=== PATIENT | male | born 1930 | race Caucasian/White ===

== ENCOUNTER 2016-10-04 13:52 | Inpatient (IN) | payer OTHER, MEDICAID ==
[~2016-10-04] VITALS: Ht 162.6 cm; Wt 70.6 kg
[~2016-10-04 13:52] MED LIST: AMIO200T46 PO; ASA PO; DILT120C79 PO; LOSA25TA47 PO; MULT1CAP20 PO
[2016-10-04] MEDS ORDERED: SODIUM CHLORIDE 0.9% 1L BAG IV* STA (14:18)
[2016-10-04] MEDS ORDERED: AMIODARONE 150MG/D5W BOLUS 100 ML IV ONE (14:30)
[2016-10-04] MEDS ORDERED: DABI150C PO (14:52)
[2016-10-04] MEDS ORDERED: OMEP40CA6 PO (14:52)
[2016-10-04] MEDS ORDERED: METO25TA7 PO (14:52)
--- NOTE | 2016-10-04 14:52 | ERA ---
ER Documentation Chief Complaint Date/Time DATE: 10/04/16 TIME: 14:50 Chief Complaint CONSTANT EPIGASTRIC PAIN STARTING YESTERDAY HPI 86-year-old male presenting with abdominal pain radiating up into his chest that started yesterday. The patient is a poor historian and is unable to give much detail about his pain. He is unable to describe the quality of his pain, however he states that it is a constant pain, radiating to his back, currently a 9 out of 10. He denies any associated shortness of breath, fever, chills. However his daughter states that he has been having chills. No associated dysuria or cough. ROS All systems reviewed and are negative except as per history of present illness. Medications Home Meds Reported Medications Vitamin B Complex (B Complete) 1 Each Tablet, 1 EACH PO DAILY, TAB 10/04/16 Ascorbic Acid* (Vitamin C*) 500 Mg Capsule.sa, 500 MG PO DAILY, CAP 10/04/16 Ferrous Sulfate* (Ferrous Sulfate*) 325 Mg Tabec, 325 MG PO DAILY, TAB 10/04/16 Dabigatran Etexilate Mesylate* (Pradaxa*) 150 Mg Capsule, 150 MG PO BID, CAP 10/04/16 Omeprazole* (Omeprazole*) 40 Mg Capsule.dr, 40 MG PO DAILY, #30 CAP 10/04/16 Metoprolol Succinate* (Toprol XL*) 25 Mg Tab.sr.24h, 25 MG PO DAILY, #30 TAB 10/04/16 Discontinued Reported Medications Multivitamins (Replace) 1 Cap Capsule, 1 CAP PO DAILY 01/22/12 [Asa] No Conflict Check, 81 MG PO DAILY 01/22/12 Diltiazem Hcl (Diltiazem Er) 120 Mg Capsule.sa, 120 MG PO DAILY 01/22/12 Losartan Potassium* (Cozaar*) 25 Mg Tablet, 25 MG PO DAILY 01/22/12 Amiodarone Hcl* (Cordarone*) 200 Mg Tab, 200 MG PO DAILY 01/22/12 Allergies Allergies: Coded Allergies: No Known Allergies (Verified Allergy, Unknown, 10/04/16) PMhx/Soc History of Surgery: Yes (Ocular surgery, pacemaker placement, laparoscopic cholecystectomy) Anesthesia Reaction: No Hx Neurological Disorder: No Hx Respiratory Disorders: No Hx Cardiac Disorders: Yes (Hypertension, unknown arrhythmia requiring pacemaker ) Hx Psychiatric Problems: No Hx Miscellaneous Medical Probl: No Hx Alcohol Use: No Hx Substance Use: No Hx Tobacco Use: Yes (20yrs, 1pack/week) FmHx Family History: No diabetes Physical Exam Vitals Vital Signs Date Time Temp Pulse Resp B/P Pulse Ox O2 Delivery O2 Flow Rate FiO2 10/04/16 17:52 98.0 138 16 149/76 100 Nasal Cannula 2.0 10/04/16 16:04 98.0 135 18 154/100 100 Nasal Cannula 2.0 10/04/16 15:20 98.8 131 22 165/93 100 Nasal Cannula 2.0 10/04/16 15:06 Nasal Cannula 2 10/04/16 13:54 98.8 116 22 150/96 99 Physical Exam Const: Nontoxic, no diaphoresis, no apparent distress Head: Atraumatic Eyes: Normal Conjunctiva ENT: Normal External Ears, Nose and Mouth. Neck: Full range of motion. No meningismus. Resp: Clear to auscultation bilaterally Cardio: Pacemaker palpated in left chest, tachycardic irregular rhythm, no murmurs Abd: Soft, epigastric tenderness to palpation, no rebound or guarding, non distended. No pulsatile mass. Normal bowel sounds Skin: No petechiae or rashes Back: No midline or flank tenderness Ext: No cyanosis, or edema Neur: Awake and alert Psych: Normal Mood and Affect Result Diagram: 10/04/16 1450 10/04/16 1450 Results 24 hrs Laboratory Tests Test 10/04/16 14:50 10/04/16 15:00 10/04/16 17:00 Activated Partial Thromboplast Time 35.3Sec Alanine Aminotransferase (ALT/SGPT) 178IU/L Albumin 3.9g/dl Albumin/Globulin Ratio 0.92 Alkaline Phosphatase 223IU/L Anion Gap 18 Aspartate Amino Transf (AST/SGOT) 205IU/L Basophils # 0.010^3/ul Basophils % 0.3% Blood Morphology Comment Blood Urea Nitrogen 17mg/dl Calcium Level 8.9mg/dl Carbon Dioxide Level 24mmol/L Chloride Level 103mmol/L Creatinine 0.86mg/dl Direct Bilirubin 1.70mg/dl Eosinophils # 0.010^3/ul Eosinophils % 0.6% Globulin 4.20g/dl Glucose Level 128mg/dl Hematocrit 41.6% Hemoglobin 13.8g/dl INR International Normalized Ratio 1.23 Indirect Bilirubin 2.4mg/dl Lactic Acid Level 1.9mmol/L 2.1mmol/L Lipase 1317U/L Lymphocytes # 1.710^3/ul Lymphocytes % 23.5% Mean Corpuscular Hemoglobin 28.7pg Mean Corpuscular Hemoglobin Concent 33.2g/dl Mean Corpuscular Volume 86.5fl Mean Platelet Volume 10.6fl Monocytes # 0.610^3/ul Monocytes % 8.4% Neutrophils # 5.010^3/ul Neutrophils % 67.2% Nucleated Red Blood Cells # 0.010^3/ul Nucleated Red Blood Cells % 0.0/100WBC Platelet Count 69123^3/UL Potassium Level 4.1mmol/L Prothrombin Time 15.6Sec Prothrombin Time Ratio 1.2 Red Blood Count 4.8210^6/ul Red Cell Distribution Width 15.0% Sodium Level 141mmol/L Total Bilirubin 4.1mg/dl Total Protein 8.1g/dl Troponin I 0.043ng/ml White Blood Count 7.410^3/ul Urine Bilirubin 2+ Urine Clarity CLEAR Urine Color ANNIE Urine Glucose NEGATIVE% Urine Hemoglobin NEGATIVE Urine Ictotest POSITIVE Urine Ketones NEGATIVE Urine Leukocyte Esterase NEGATIVE Urine Nitrite NEGATIVE Urine Specific [place] >=1.030 Urine Total Protein NEGATIVE Urine Urobilinogen 4.0 E.U./dL Urine pH 5.5 Current Medications Medications (Trade) Dose Ordered Sig/Digna Route PRN Reason Start Time Stop Time Status Last Admin Dose Admin Sodium Chloride 2200 ml 2,200 ml BOLUS OVER 2 HOURS STAT IV* 10/04/16 14:18 10/04/16 14:20 DC 10/04/16 14:57 Amiodarone HCl 100 ml @ 600 mls/hr ONCE ONCE IV 10/04/16 14:30 10/04/16 14:39 DC 10/04/16 14:57 Ceftriaxone Sodium (Rocephin) 50 ml @ 100 mls/hr ONCE ONCE IVPB 10/04/16 15:00 10/04/16 15:29 DC 10/04/16 15:12 Ondansetron HCl 4 mg 4 mg ER BRIDGE PRN IV NAUSEA AND/OR VOMITING 10/04/16 18:30 10/05/16 18:29 Sodium Chloride (NS) 250 ml @ 250 mls/hr Q1H STAT IV 10/04/16 18:09 10/04/16 19:08 10/04/16 18:25 Procedures/MDM EKG at 1405: Rate/Rhythm: Wide-complex irregular rhythm at 138 bpm QRS, ST, T-waves: Left bundle branch block pattern No changes consistent w/ acute ischemia Impression: Wide-complex tachycardia, possibly A. fib with RVR with aberrancy versus paroxysmal ventricular tachycardia EKG at 1425: Rate/Rhythm: Wide-complex irregular rhythm at 127 bpm QRS, ST, T-waves: Left bundle branch block pattern No changes consistent w/ acute ischemia Impression: Wide-complex tachycardia, possibly A. fib with RVR with aberrancy versus paroxysmal ventricular tachycardia EKG at 1525: Rate/Rhythm: Sinus tachycardia at 1 32 bpm QRS, ST, T-waves: Left bundle branch block, no acute ischemic changes Impression: Sinus tachycardia with left bundle branch block Patient was initially presenting with abdominal and chest pain with vitals notable for tachypnea and tachycardia. A sepsis workup was started. 30 cc/kg of IV fluids and broad-spectrum antibiotics were started. Amiodarone was given for concern of stable ventricular tachycardia. However the tachycardia persisted. Multiple EKGs were done and it seems that the patient's tachycardia is secondary to sinus tachycardia most likely versus atrial fibrillation with rapid ventricular response. I suspect that this is a physiologic response secondary to dehydration versus sepsis. His lactate was within normal limits initially, however after appropriate hydration it did bump up. Ultrasound of his right upper quadrant did not show any acute abnormalities. There does not seem to be evidence of pneumonia or UTI on his workup. CT of his abdomen shows some retained stones in the biliary ducts with dilation. The differential includes but is not limited to early cholangitis or hepatitis. Additional IV fluids were given. I spoke to the admitting physician who recommended GI consult. GI was consulted and came to see the patient. The patient will be admitted for further workup and management. Patient's infectious symptoms have not stabilized and the patient is at risk of rapid decompensation. The patient will be admitted for careful hydration, antibiotic therapy, and infectious source control. Severe Sepsis Assessment: Infectious Source: intraabdominal infection, pancreatitis/hepatitis End organ damage indicated by: Lactate > 2.0 mmol/L Bili > 2 Severe Sepsis Managment: Blood Cultures X 2 before broad spectrum antibiotics initiated within 3 hours of recognition. 30 ml/kg NS bolus Completed Initial Lactate: Normal Repeat Lactate 2.1 Septic Shock Assessment (1 hour post 30 ml/kg fluid bolus): Hypotension (SBP < 90 or 40 mmHg drop, MAP < 65): No Lactic acid > 4.0 No Critical Care Time: 35 minutes Treatments/Evaluations: Close monitoring and treatment of unstable vital signs, cardiorespiratory, and neurologic status, while maintaining tight balance of fluid, respiratory, and cardiac interventions. This time includes discussing the case with the patient and the patients family. This time does not include all procedures stated elsewhere in this record. This time also includes reviewing old records, labs and radiological studies. This time includes examining and re-examining the patient. Additionally, this time also includes arranging care with admitting and consulting physicians. Accepting Care Team: Current data and ongoing care discussed. Time: Time of admission Primary Provider: Rasheeda Salmon Consulting: Fermin (GI) Outstanding Data: none Departure Diagnosis: Primary Impression: Abdominal pain Qualified Code: R10.13 - Epigastric pain Additional Impressions: Pancreatitis Qualified Code: K85.90 - Acute pancreatitis, unspecified complication status, unspecified pancreatitis type Transaminitis Hyperbilirubinemia Atrial fibrillation with RVR Severe sepsis Condition: Serious SULEMAN MENJIVAR MD Oct 04, 2016 14:52
[2016-10-04] MEDS ORDERED: ASCO500C7 PO (14:53)
[2016-10-04] MEDS ORDERED: FER325 PO (14:53)
[2016-10-04] MEDS ORDERED: VITA1TAB69 PO (14:54)
[2016-10-04] MEDS ORDERED: CEFTRIAXONE 1 GM/50 ML (PMX) 50 ML IVPB ONE (15:00)
[2016-10-04 15:11] LABS: BASOPHILS % 0.3 % (0.0-2.0); EOSINOPHILS % 0.6 % (0.0-7.0); HEMATOCRIT 41.6 % (42.0-52.0); HEMOGLOBIN 13.8 g/dl (14.0-18.0); LYMPHOCYTES # 1.7 10^3/ul (0.8-2.9); LYMPHOCYTES % 23.5 % (15.0-51.0); MEAN CORPUSCULAR HEMOGLOBIN 28.7 pg (29.0-33.0); MEAN CORPUSCULAR HGB CONC 33.2 g/dl (32.0-37.0); MEAN CORPUSCULAR VOLUME 86.5 fl (82.0-101.0); MEAN PLATELET VOLUME 10.6 fl (7.4-10.4); MONOCYTE # 0.6 10^3/ul (0.3-0.9); MONOCYTES % 8.4 % (0.0-11.0); NEUTROPHILS % 67.2 % (39.0-77.0); PLATELET COUNT 151 10^3/UL (140-440); RED BLOOD COUNT 4.82 10^6/ul (4.70-6.10); UNCORRECTED WBC 7.4 10^3/ul (4.8-10.8); WHITE BLOOD COUNT 7.4 10^3/ul (4.8-10.8)
[2016-10-04 15:17] LABS: CONDITION 1; LH ANALYZER COMMENTS 1
[2016-10-04 15:22] LABS: INR 1.23; PROTIME 15.6 Sec (12.2-14.2); PT RATIO 1.2
[2016-10-04 15:23] LABS: PARTIAL THROMBOPLASTIN TIME 35.3 Sec (25.0-35.0)
[2016-10-04 15:34] LABS: ALBUMIN 3.9 g/dl (3.3-4.9); POTASSIUM 4.1 mmol/L (3.5-5.1)
[2016-10-04 15:36] LABS: CREATININE 0.86 mg/dl (0.61-1.24)
[2016-10-04 15:37] LABS: URINE BILIRUBIN (Dip) 2+ (NEGATIVE); URINE BLOOD (Dip) NEGATIVE (NEGATIVE); URINE COLOR AMBER (YELLOW); URINE GLUCOSE (Dip) NEGATIVE (NEGATIVE); URINE KETONES (Dip) NEGATIVE (NEGATIVE); URINE LEUKOCYTE ESTERASE (Dip) NEGATIVE (NEGATIVE); URINE NITRITE (Dip) NEGATIVE (NEGATIVE); URINE UROBILINOGEN (Dip) 4.0 E.U./dL (0.1-1.0)
[2016-10-04 15:37] LABS: ALBUMIN/GLOBULIN RATIO 0.92; BILIRUBIN,DIRECT 1.7 mg/dl (0.00-0.20); BILIRUBIN,INDIRECT 2.4 mg/dl (0-1.1); BILIRUBIN,TOTAL 4.1 mg/dl (0.2-1.3); TOTAL PROTEIN 8.1 g/dl (6.1-8.1)
[2016-10-04 15:38] LABS: CALCIUM 8.9 mg/dl (8.4-10.2)
[2016-10-04 15:39] LABS: ADD UMIC NO; URINE TOTAL PROTEIN (Dip) NEGATIVE (NEGATIVE)
[2016-10-04 15:47] LABS: ICTOTEST POSITIVE (NEGATIVE)
[2016-10-04 15:49] LABS: TROPONIN-I 0.043 ng/ml (0.00-0.12)
[2016-10-04] MEDS ORDERED: SOD CHLORIDE 0.9% 250 ML IV STA (18:09)
--- NOTE | 2016-10-04 18:11 | RADRPT ---
PROCEDURE: Abdominal ultrasound CLINICAL INDICATION: Abdominal pain TECHNIQUE: Rothman scale, color Doppler, and spectral Doppler ultrasound images of the right upper qu adrant. COMPARISON: None FINDINGS: Pancreas: Poorly visualized. Liver: Morphology: Normal in size and contour. Echogenicity: Increased echogenicity of the liver parenchyma suggestive of hepatic steatosis. Focal lesions: None. Main portal vein: Patent with hepatopetal flow. Biliary System: Status post cholecystectomy. No intra or extra-hepatic biliary dilatation. Common bile duct measures 7.0 mm in maximal dimension. Kidneys: Right 11.6 cm in length. Normal echogenicity. No hydronephrosis. No focal lesions or renal calculi. No free fluid identified. IMPRESSION: Status post cholecystectomy. Increased echogenicity of the liver parenchyma suggestive of hepatic steatosis. RPTAT: AADD .Bear Vargas MD, MD Date Time Electronically viewed and signed by .Bear Vargas MD, on 10/04/2016 17:25 .B/
--- NOTE | 2016-10-04 18:12 | RADRPT ---
PROCEDURE: CT Abdomen and Pelvis without contrast. CLINICAL INDICATION: Epigastric pain TECHNIQUE: CT of the abdomen and pelvis was performed on a multi-detector scanner without IV contr ast. Coronal and sagittal images were reformatted from the axial data set. One or more of the foll owing dose reduction techniques were used: automated exposure control, adjustment of the mA and/or kV according to patient size, use of iterative reconstruction technique. CTDI = 10.66 mGy. DLP = 64 2.26 mGy-cm. COMPARISON: Ultrasound, 10/04/2016 FINDINGS: CT abdomen: The lung bases are clear. The heart size is normal, without pericardial effusion. Gallbladder is s urgically absent. Hyperdensities are noted within the distal common bile duct measuring up to 10 mm (3-63), concerning for choledocholithiasis. There is mild dilatation of the biliary tree - common bile duct maximal diameter is 11 mm. Liver, pancreas, spleen, adrenal glands and kidneys are unrema rkable except for benign renal cysts. No urolithiasis or obstructive uropathy is identified. The s tomach is grossly unremarkable. The aorta is of normal caliber. Aortic vascular calcifications are present. There is no retroperit tinsley lymphadenopathy. The donya hepatis region is clear. CT pelvis: No bowel obstruction, free intraperitoneal air or abscess is identified. Colonic diverticulosis is seen without diverticulitis. There is no appendicitis or colitis. Urinary bladder is grossly unrem arkable. Bilateral fat containing inguinal hernias are seen without incarceration. No pelvic mass, free fluid or lymphadenopathy is identified. The surrounding osseous structures are remarkable for degenerative spondylosis of the spine. No ost eolytic or osteoblastic lesion is detected. IMPRESSION: 1. Hyperdensities are seen within the distal common bile duct measuring up to 10 mm, suspicious for common duct stones. There is dilatation of the biliary tree proximally, with common bile duct maxi mal diameter of approximately 11 mm. Consider MRCP for further evaluation. 2. Gallbladder is surgically absent. 3. Aortoiliac atherosclerotic calcifications are present. 4. Colonic diverticulosis is seen without diverticulitis. 5. Bilateral fat containing inguinal hernias are seen without incarceration. 6. No mass or lymphadenopathy is identified. RPTAT: QQ .Akash Robert MD, MD Date Time Electronically viewed and signed by .Akash Robert MD, MD on 10/04/2016 17:53 .R/
[2016-10-04] MEDS ORDERED: ONDANSETRON 4 MG INJ IV PRN ×2 (18:30→21:30)
--- NOTE | 2016-10-04 18:38 | CONS ---
Date/Time of Note Date/Time of Note DATE: 10/04/16 TIME: 18:38 Assessment/Plan Assessment/Plan Chief Complaint/Hosp Course Impression: 1. likely gallstone pancreatitis 2. epigastric and RUQ abdominal pain 3. 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 Anemia, r/o GIB Recommendation: 1. plan for ERCP Wednesday 2. IVF 3. continue zosyn 4. check lipase 5. stool for occult blood Problems: Consultation Date/Type/Reason Admit Date/Time Type of Consultation: GI Hx of Present Illness 86-year-old male admitted for gallstone pancreatitis. He developed epigastric abdominal pain radiating up into his chest and back that started yesterday. No shortness of breath, fever, chills. + subjective fever and chills. No associated dysuria or cough. No melena, BRBPR, coffee ground emesis, and hematemesis. All point ros administered, pertinent positives and negatives in HPI otherwise negative. Past Medical History arrhythmia, gallstones Medical History: hypertension Past Surgical History pacemaker placement Past Surgical Hx: cholecystectomy, endoscopy Family History Significant Family History: no pertinent family hx Social History Alcohol Use: none Smoking Status: Former smoker Drug Use: none Exam/Review of Systems Vital Signs Vitals Vital Signs Date Time Temp Pulse Resp B/P Pulse Ox O2 Delivery O2 Flow Rate FiO2 10/04/16 17:52 98.0 138 16 149/76 100 Nasal Cannula 2.0 Exam Constitutional: alert, oriented, well developed Psych: nl mood/affect, no complaints Head: atraumatic, normocephalic Eyes: EOMI, nl conjunctiva, nl lids, nl sclera ENMT: mucosa pink and moist, nl external ears & nose, nl lips & teeth, nl nasal mucosa & septum Neck: non-tender, supple Respiratory: clear to auscultation, normal air movement Cardiovascular: nl pulses, regular rate and rhythm Gastrointestinal: bowel sounds, soft, tender (epigastric and RUQ, no R/G) Neurological: nl mental status, nl speech, nl strength Results Result Diagram: 10/04/16 1450 10/04/16 1450 Results 24 hrs Laboratory Tests Test 10/04/16 14:50 10/04/16 15:00 10/04/16 17:00 Activated Partial Thromboplast Time 35.3 H Alanine Aminotransferase (ALT/SGPT) 178 H Albumin 3.9 Albumin/Globulin Ratio 0.92 Alkaline Phosphatase 223 H Anion Gap 18 H Aspartate Amino Transf (AST/SGOT) 205 H Basophils # 0.0 Basophils % 0.3 Blood Morphology Comment Blood Urea Nitrogen 17 Calcium Level 8.9 Carbon Dioxide Level 24 Chloride Level 103 Creatinine 0.86 Direct Bilirubin 1.70 H Eosinophils # 0.0 Eosinophils % 0.6 Globulin 4.20 H Glucose Level 128 Hematocrit 41.6 L Hemoglobin 13.8 L INR International Normalized Ratio 1.23 Indirect Bilirubin 2.4 H Lactic Acid Level 1.9 2.1 Lipase 1317 H Lymphocytes # 1.7 Lymphocytes % 23.5 Mean Corpuscular Hemoglobin 28.7 L Mean Corpuscular Hemoglobin Concent 33.2 Mean Corpuscular Volume 86.5 Mean Platelet Volume 10.6 H Monocytes # 0.6 Monocytes % 8.4 Neutrophils # 5.0 Neutrophils % 67.2 Nucleated Red Blood Cells # 0.0 Nucleated Red Blood Cells % 0.0 Platelet Count 151 Potassium Level 4.1 Prothrombin Time 15.6 H Prothrombin Time Ratio 1.2 Red Blood Count 4.82 Red Cell Distribution Width 15.0 H Sodium Level 141 Total Bilirubin 4.1 H Total Protein 8.1 Troponin I 0.043 White Blood Count 7.4 Urine Bilirubin 2+ H Urine Clarity CLEAR Urine Color ANNIE Urine Glucose NEGATIVE Urine Hemoglobin NEGATIVE Urine Ictotest POSITIVE Urine Ketones NEGATIVE Urine Leukocyte Esterase NEGATIVE Urine Nitrite NEGATIVE Urine Specific [place] >=1.030 H Urine Total Protein NEGATIVE Urine Urobilinogen 4.0 E.U./dL H Urine pH 5.5 JUWAN PICHARDO MD Oct 04, 2016 18:38
--- NOTE | 2016-10-04 19:19 | RADRPT ---
PROCEDURE: XR Chest. CLINICAL INDICATION: Chest pain TECHNIQUE: Single frontal chest x-ray. COMPARISON: None. FINDINGS: No acute infiltrate, pleural effusion or pneumothorax is identified. Cardiomediastinal silhouette i s within normal limits. Left-sided single lead pacemaker is in place. Aortic atherosclerotic calci fication is noted. The osseous structures are unremarkable. IMPRESSION: 1. No evidence of acute cardiopulmonary process. 2. Aortic atherosclerosis. RPTAT: QQ .Akash Robert MD, Date Time Electronically viewed and signed by .Akash Robert MD, on 10/04/2016 15:05 .R/
[2016-10-04 19:36] VITALS: TEMP 98
[2016-10-04 20:00] VITALS: BP 154/94; PULSE 143; RESP 20
[2016-10-04 20:07] VITALS: Ht 162.6 cm; Wt 70.6 kg
[2016-10-04 20:16] VITALS: PULSE 130
[2016-10-04] MEDS ORDERED: ACETAMINOPHEN 325 MG TAB PO PRN (21:30)
[2016-10-04] MEDS ORDERED: DEXTROSE 5%-0.9% NACL 1,000 ML IV SCH (21:30)
[2016-10-04] MEDS: DILTIAZEM 25 MG INJ IV PRN (23:29)
[2016-10-04] MEDS ORDERED: [UNRECOGNIZED DRUG - REMARK] XX SCH (23:30)
[2016-10-04 23:35] VITALS: BP 126/74; RESP 18
[2016-10-04] MEDS: PIPER-TAZO 3.375 GM IV (PMX) 100 ML IVPB SCH (23:46)
[2016-10-05] VITALS (11 sets, daily range): BP systolic 104–154; BP diastolic 62–75; PULSE 50–70; RESP 16–20
[2016-10-05] MEDS: PANTOPRAZOLE 40 MG INJ IV SCH (05:53)
[2016-10-05] MEDS: PIPER-TAZO 3.375 GM IV (PMX) 100 ML IVPB SCH ×3 (05:54→17:43)
[2016-10-05 06:33] LABS: BASOPHILS % 0.7 % (0.0-2.0); EOSINOPHILS % 0.4 % (0.0-7.0); HEMATOCRIT 35.2 % (42.0-52.0); HEMOGLOBIN 11.9 g/dl (14.0-18.0); LYMPHOCYTES # 1.2 10^3/ul (0.8-2.9); LYMPHOCYTES % 25.8 % (15.0-51.0); MEAN CORPUSCULAR HGB CONC 33.7 g/dl (32.0-37.0); MEAN CORPUSCULAR VOLUME 86.2 fl (82.0-101.0); MEAN PLATELET VOLUME 10.2 fl (7.4-10.4); MONOCYTE # 0.5 10^3/ul (0.3-0.9); MONOCYTES % 10.5 % (0.0-11.0); NEUTROPHILS % 62.6 % (39.0-77.0); PLATELET COUNT 140 10^3/UL (140-440); RED BLOOD COUNT 4.08 10^6/ul (4.70-6.10); UNCORRECTED WBC 4.8 10^3/ul (4.8-10.8); WHITE BLOOD COUNT 4.8 10^3/ul (4.8-10.8)
[2016-10-05] MEDS: DILTIAZEM 25 MG INJ IV PRN (06:33)
[2016-10-05 06:39] LABS: CONDITION 1; LH ANALYZER COMMENTS 1
[2016-10-05 06:46] LABS: POTASSIUM 3.5 mmol/L (3.5-5.1)
[2016-10-05 06:49] LABS: CALCIUM 7.9 mg/dl (8.4-10.2); CREATININE 0.76 mg/dl (0.61-1.24)
[2016-10-05] MEDS ORDERED: METOPROLOL 25 MG TAB GTB SCH (09:00)
--- NOTE | 2016-10-05 09:17 | CONS ---
Date/Time of Note Date/Time of Note DATE: 10/05/16 TIME: 09:15 Assessment/Plan Assessment/Plan Chief Complaint/Hosp Course Impression: 1. likely gallstone pancreatitis 2. epigastric and RUQ abdominal pain 3. 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 Anemia, r/o GIB Recommendation: 1. plan for ERCP Wednesday 2. IVF 3. continue zosyn 4. check lipase 5. stool for occult blood 6. risks, benefits and alternatives of ERCP d/w patient and his sisters through needle straightener, after answering all of their questions, they agreed to proceed. Problems: Consultation Date/Type/Reason Admit Date/Time Oct 04, 2016 at 18:09 Initial Consult Date Type of Consultation: GI 24 HR Interval Summary Free Text/Dictation abdominal pain improved, no n/v Constitutional: improved Exam/Review of Systems Vital Signs Vitals Vital Signs Date Time Temp Pulse Resp B/P Pulse Ox O2 Delivery O2 Flow Rate FiO2 10/05/16 08:28 59 10/05/16 08:16 Nasal Cannula 2.0 10/05/16 07:35 98.4 20 119/63 98 Intake and Output 10/04/16 10/04/16 10/05/16 15:00 23:00 07:00 Intake Total 700 ml Balance 700 ml Exam Constitutional: alert, oriented, well developed Psych: nl mood/affect, no complaints Head: atraumatic, normocephalic Eyes: EOMI, nl conjunctiva, nl lids, nl sclera ENMT: mucosa pink and moist, nl external ears & nose, nl lips & teeth, nl nasal mucosa & septum Neck: non-tender, supple Respiratory: clear to auscultation, normal air movement Cardiovascular: nl pulses, regular rate and rhythm Gastrointestinal: bowel sounds, soft, tender (epigastric and RUQ, no R/G) Results Result Diagram: 10/05/1651110/05/16511 Results 24 hrs Laboratory Tests Test 10/04/16 14:50 10/04/16 15:00 10/04/16 17:00 10/04/16 19:30 Activated Partial Thromboplast Time 35.3 H Alanine Aminotransferase (ALT/SGPT) 178 H Albumin 3.9 Albumin/Globulin Ratio 0.92 Alkaline Phosphatase 223 H Anion Gap 18 H Aspartate Amino Transf (AST/SGOT) 205 H Basophils # 0.0 Basophils % 0.3 Blood Morphology Comment Blood Urea Nitrogen 17 Calcium Level 8.9 Carbon Dioxide Level 24 Chloride Level 103 Creatinine 0.86 Direct Bilirubin 1.70 H Eosinophils # 0.0 Eosinophils % 0.6 Globulin 4.20 H Glucose Level 128 Hematocrit 41.6 L Hemoglobin 13.8 L INR International Normalized Ratio 1.23 Indirect Bilirubin 2.4 H Lactic Acid Level 1.9 2.1 1.5 Lipase 1317 H Lymphocytes # 1.7 Lymphocytes % 23.5 Mean Corpuscular Hemoglobin 28.7 L Mean Corpuscular Hemoglobin Concent 33.2 Mean Corpuscular Volume 86.5 Mean Platelet Volume 10.6 H Monocytes # 0.6 Monocytes % 8.4 Neutrophils # 5.0 Neutrophils % 67.2 Nucleated Red Blood Cells # 0.0 Nucleated Red Blood Cells % 0.0 Platelet Count 151 Potassium Level 4.1 Prothrombin Time 15.6 H Prothrombin Time Ratio 1.2 Red Blood Count 4.82 Red Cell Distribution Width 15.0 H Sodium Level 141 Total Bilirubin 4.1 H Total Protein 8.1 Troponin I 0.043 White Blood Count 7.4 Urine Bilirubin 2+ H Urine Clarity CLEAR Urine Color ANNIE Urine Glucose NEGATIVE Urine Hemoglobin NEGATIVE Urine Ictotest POSITIVE Urine Ketones NEGATIVE Urine Leukocyte Esterase NEGATIVE Urine Nitrite NEGATIVE Urine Specific [place] >=1.030 H Urine Total Protein NEGATIVE Urine Urobilinogen 4.0 E.U./dL H Urine pH 5.5 Test 10/05/16 05:12 Anion Gap 16 Basophils # 0.0 Basophils % 0.7 Blood Morphology Comment Blood Urea Nitrogen 10 Calcium Level 7.9 L Carbon Dioxide Level 22 Chloride Level 108 Creatinine 0.76 Eosinophils # 0.0 Eosinophils % 0.4 Glucose Level 106 Hematocrit 35.2 L Hemoglobin 11.9 L Lymphocytes # 1.2 Lymphocytes % 25.8 Mean Corpuscular Hemoglobin 29.0 Mean Corpuscular Hemoglobin Concent 33.7 Mean Corpuscular Volume 86.2 Mean Platelet Volume 10.2 Monocytes # 0.5 Monocytes % 10.5 Neutrophils # 3.0 Neutrophils % 62.6 Nucleated Red Blood Cells # 0.0 Nucleated Red Blood Cells % 0.0 Platelet Count 140 Potassium Level 3.5 Red Blood Count 4.08 L Red Cell Distribution Width 15.0 H Sodium Level 142 White Blood Count 4.8 # Medications Medications Current Medications Acetaminophen (Tylenol Tab) 650 mg Q6H PRN PO PAIN AND OR ELEVATED TEMP; Start 10/04/16 at 21:30 Pantoprazole (Protonix Iv) 40 mg DAILY@06 IV Last administered on 10/05/16 05: 53; Admin Dose 40 MG; Start 10/05/16 at 06:00 Ondansetron HCl (Zofran Inj) 4 mg Q6H PRN IV NAUSEA AND/OR VOMITING; Start 10/04 at 21:30 Morphine Sulfate 2 mg 2 mg Q4H PRN IV PAIN LEVEL 8-10; Start 10/04/16 at 21:30 Dextrose/Sodium Chloride (D5-NS) 1,000 ml @ 100 mls/hr Q10H IV Last administered on 10/04/16 22:35; Admin Dose 100 MLS/HR; Start 10/04/16 at 21:30 Diltiazem HCl (Cardizem Iv) 10 mg Q1H PRN IV ELEVATED HEART RATE Last administered on 10/05/16 06:33; Admin Dose 10 MG; Start 10/04/16 at 21:30 Metoprolol Tartrate (Lopressor) 25 mg DAILY GTB ; Start 10/05/16 at 09:00 Miscellaneous Information ZOSYN IVPB PHARMACY TO DOSE. ONCE XX ; Start 10/04/16 at 23:30 Piperacillin Sod/ Tazobactam Sod (Zosyn 3.375gm/ 100 ml (Pmx)) 100 ml @ 200 mls /hr Q8 IVPB Last administered on 10/05/16 05:54; Admin Dose 200 MLS/HR; Start 10/05/16 at 00:00 JUWAN PICHARDO MD Oct 05, 2016 09:17
[2016-10-05] MEDS: D5-LR + KCL 20 MEQ 1,000 ML IV SCH ×3 (10:41→22:42)
--- NOTE | 2016-10-05 13:43 | QN ---
Documentation Comment [id number] REGI GOVEA MD Oct 05, 2016 13:43
--- NOTE | 2016-10-05 15:21 | HP ---
DATE OF ADMISSION: 10/04/2016 HISTORY OF PRESENT ILLNESS: The patient is an elderly male who has a history of cholecystectomy who presented with abdominal pain and nausea noted at this point. The patient had a chest x-ray done, shows no evidence of acute process, aortic atherosclerosis. Ultrasound of the abdomen shows s tatus post cholecystectomy, increased echogenicity of the liver, pancreatitis and pneumocystis sugge stive of hepatic steatosis. Abdominal CT of pelvis shows hyperdense disease is seen within the dis blake common bile duct measuring up to 9 mm common bile duct stone. Gallbladder is surgically absen t. Aortoiliac atherosclerotic calcifications are present, colonic diverticulosis, bilateral fat con taining inguinal hernia. PAST MEDICAL HISTORY: Cholecystectomy. ALLERGY HISTORY: NEGATIVE. FAMILY HISTORY: Negative. SOCIAL HISTORY: Negative. MEDICATION HISTORY: At home the patient's listed medications. 1. Ascorbic acid. 2. Pradaxa. 3. Iron sulfate. 4. Metoprolol. 5. Omeprazole. 6. Vitamin D. REVIEW OF SYSTEMS: HEENT: Unremarkable. RESPIRATORY: Unremarkable. CARDIOVASCULAR: Unremarkable. ABDOMEN: No nausea, vomiting at this point. EXTREMITIES: Unremarkable. CENTRAL NERVOUS SYSTEM: Unremarkable. PHYSICAL EXAMINATION: GENERAL: The patient is awake, alert male, not in any respiratory distress. VITAL SIGNS: Pulse 59, blood pressure 120/62. HEAD: Atraumatic, normocephalic. Pupils equal, reactive to light. NECK: Supple. No JVD. LUNGS: Clear. CARDIOVASCULAR: S1, S2 are normal. ABDOMEN: Soft. Bowel sounds positive in the right upper quadrant. EXTREMITIES: No cyanosis, clubbing, edema. CENTRAL NERVOUS SYSTEM: The patient is awake, alert, no focal deficit. LABORATORY DATA: Hematocrit 35.2. The patient's hemoglobin 13.7, potassium 4.2. The patient's tot al bilirubin 4.1, AST 205, ALT 178, alkaline phosphatase 223. IMPRESSION: 1. Acute liver failure. 2. Sepsis. 3. Common bile duct stone. 4. Hypertension. 5. Atrial fibrillation. 6. Atherosclerosis. 7. Cardiac arrhythmia 8. Anemia. PLAN: Give this patient IV fluid, antibiotic, pain medicine and gastroenterology consultation. Ord ers were done. Dictated By: REGI GOVEA MD BS/NTS Conf#: [id number] DID#: [id number]
[2016-10-05] MEDS ORDERED: METOPROLOL 5 MG INJ IV PRN (16:30)
[2016-10-05] MEDS: METOPROLOL 50 MG TAB PO SCH (20:26)
[2016-10-05] MEDS: ENOXAPARIN 40 MG/0.4 ML SYG SC SCH (20:28)
[2016-10-06] VITALS (12 sets, daily range): BP systolic 138–169; BP diastolic 75–81; PULSE 62–160; RESP 16–20
[2016-10-06] MEDS: PIPER-TAZO 3.375 GM IV (PMX) 100 ML IVPB SCH ×4 (00:08→17:37)
[2016-10-06] MEDS: morphine 2 MG INJ IV PRN ×2 (04:12→09:50)
[2016-10-06] MEDS: PANTOPRAZOLE 40 MG INJ IV SCH (05:22)
[2016-10-06 05:56] LABS: BASOPHILS % 0.3 % (0.0-2.0); EOSINOPHILS # 0.1 10^3/ul (0.0-0.5); HEMATOCRIT 36.7 % (42.0-52.0); HEMOGLOBIN 12.3 g/dl (14.0-18.0); LYMPHOCYTES # 1.3 10^3/ul (0.8-2.9); LYMPHOCYTES % 23.7 % (15.0-51.0); MEAN CORPUSCULAR HEMOGLOBIN 29.1 pg (29.0-33.0); MEAN CORPUSCULAR HGB CONC 33.4 g/dl (32.0-37.0); MEAN CORPUSCULAR VOLUME 87.1 fl (82.0-101.0); MEAN PLATELET VOLUME 10.4 fl (7.4-10.4); MONOCYTE # 0.4 10^3/ul (0.3-0.9); MONOCYTES % 7.1 % (0.0-11.0); NEUTROPHIL # 3.8 10^3/ul (1.6-7.5); NEUTROPHILS % 67.9 % (39.0-77.0); PLATELET COUNT 144 10^3/UL (140-440); RED BLOOD COUNT 4.22 10^6/ul (4.70-6.10); RED CELL DISTRIBUTION WIDTH 15.2 % (11.5-14.5); UNCORRECTED WBC 5.6 10^3/ul (4.8-10.8); WHITE BLOOD COUNT 5.6 10^3/ul (4.8-10.8)
[2016-10-06 05:59] LABS: CONDITION 1; LH ANALYZER COMMENTS 1
[2016-10-06 06:05] LABS: ALBUMIN 3.2 g/dl (3.3-4.9)
[2016-10-06 06:06] LABS: POTASSIUM 4.1 mmol/L (3.5-5.1)
[2016-10-06 06:08] LABS: BILIRUBIN,DIRECT 1.7 mg/dl (0.00-0.20); BILIRUBIN,INDIRECT 3.2 mg/dl (0-1.1); BILIRUBIN,TOTAL 4.9 mg/dl (0.2-1.3); CREATININE 0.81 mg/dl (0.61-1.24)
[2016-10-06 06:09] LABS: ALBUMIN/GLOBULIN RATIO 0.84; CALCIUM 8.5 mg/dl (8.4-10.2)
[2016-10-06 06:19] LABS: CHOL/HDL RATIO 4.2 RATIO
[2016-10-06] MEDS: hydrALAzine 20 MG INJ IV PRN (06:35)
[2016-10-06 06:38] LABS: THYROID STIMULATING HORMONE 2.48 MIU/L (0.465-4.680)
[2016-10-06] MEDS ORDERED: INDOMETHACIN 50 MG SUPP PR SCH (07:00)
[2016-10-06] MEDS: DILTIAZEM 25 MG INJ IV PRN (08:26)
[2016-10-06] MEDS: ENOXAPARIN 40 MG/0.4 ML SYG SC SCH (08:29)
[2016-10-06] MEDS: METOPROLOL 50 MG TAB PO SCH ×2 (09:08→21:10)
--- NOTE | 2016-10-06 09:12 | RADRPT ---
Vent Rate: 71 bpm RR Interval: 0 msec MN Interval: 158 msec QRS Duration: 148 msec QT Interval: 432 msec QTC Interval: 469 msec P-R-T [place]: 14 - 54 - 0 degrees Normal sinus rhythm Left bundle branch block Abnormal ECG Electronically Signed By: Saji Starr [id number]
[2016-10-06] MEDS: ASPIRIN 81 MG TAB PO SCH (09:49)
--- NOTE | 2016-10-06 10:49 | QN ---
Documentation Comment 86 yo with CAD, a. fib, pacer, HTN - now with GB stone - will try to rate control with extra BB now (pacer in place to prevent elena). Moderate to high surgical risk, but given GB stone and high risk of bacteremia, will not delay ERCP for re-stratification. ECHO to follow. Full Note Dictated # [id number] NORA CALHOUN MD Oct 06, 2016 10:49
[2016-10-06] MEDS: D5-LR + KCL 20 MEQ 1,000 ML IV SCH (10:59)
--- NOTE | 2016-10-06 11:21 | RADRPT ---
Echocardiogram Report Patient Name: SUSIE CASE Gender: Male Date: 1930 Study Date: 06-Oct-2016 District Operations Manager: Karin Causey [facility] Location: [address] Ref. Physician: ISRAEL TRAN Quality: Technically Difficult Study Procedures: Transthoracic echocardiogram with complete 2D, M-Mode, and doppler examination. Indications: Monitor Heart Function. 2D/M Mode Doppler Measurement Value Normal Ranges Measurement Value Normal Ranges LVIDd 2D 4.7 3.5 - 5.6 cm AV Peak Yordan 1.5 m/sec LVIDs 2D 2.4 2.1 - 4.1 cm AV Peak PG 9.3 mmHg LVPWd 2D 0.9 0.6 - 1.1 cm LVOT Peak Yordan 1.2 m/sec IVSd 2D 1.1 0.6 - 1.1 cm LVOT Peak PG 6.2 mmHg AoR Diam 2D 2.6 2.0 - 3.7 cm TR Peak Yordan 2.9 m/sec EDV 2D 102.1 cm3 TR Peak PG 33.6 mmHg ESV 2D 13.3 cm3 RVSP 42.0 mmHg LA Dimen 2D 3.8 2.3 - 4.0 cm Findings Left Ventricle: Normal left ventricular cavity size. Normal left ventricular wall thickness. Moderate global left ventricular systolic dysfunction. Ejection fraction is visually estimated at 35 %. Right Ventricle: Normal right ventricular size. Normal right ventricular systolic function. Left Atrium: The left atrium is normal in size. Right Atrium: The right atrium is normal in size. Mitral Valve: Mitral valve leaflets appear mildly thickened. Mild mitral annular calcification. Mild mitral valve regurgitation. Aortic Valve: No significant aortic stenosis or insufficiency. Aortic cusps appear mildly calcified. Tricuspid Valve: Normal appearance of the tricuspid valve. Estimated peak PA systolic pressure 42 mmHg. There is mild tricuspid regurgitation. Pericardium: Normal pericardium with no significant pericardial effusion. Aorta: Normal aortic root. IVC: Dilated IVC with respiratory collapse consistent with elevated right atrial pressure. Conclusions 1.Normal left ventricular cavity size. Normal left ventricular wall thickness. Moderate global left ventricular systolic dysfunction. Ejection fraction is visually estimated at 35 %. 2.Mitral valve leaflets appear mildly thickened. Mild mitral annular calcification. Mild mitral valve regurgitation. 3.No significant aortic stenosis or insufficiency. Aortic cusps appear mildly calcified. 4.Normal appearance of the tricuspid valve. Estimated peak PA systolic pressure 42 mmHg. There is mild tricuspid regurgitation. Electronically Signed By: Ced Tello 06-Oct-2016 11:20:15 -0800 Patient Name: SUSIE CASE Study Date: 06-Oct-[id number]
[2016-10-06] MEDS: METOPROLOL 5 MG INJ IV SCH ×2 (11:57→17:38)
--- NOTE | 2016-10-06 12:23 | CONS ---
DATE OF ADMISSION: 10/04/2016 DATE OF CONSULTATION: 10/06/2016 REFERRING PHYSICIAN: Michelet Salmon MD REASON FOR EVALUATION: Atrial fibrillation with rapid ventricular response, preoperative evaluation for ERCP today. HISTORY OF PRESENT ILLNESS: Mr. Reilly is an 86-year-old gentleman known to me from prior admi ssion with history of hypertension, dyslipidemia, history of pacemaker placement, history of atrial fibrillation in the past who comes to the hospital now for evaluation of atrial fibrillation with ra pid ventricular response. The patient has a stone in his common bile, which likely will require ERC P extraction. I have been asked to see the patient for preoperative assessment. I think the patien t might become septic from acute cholangitis. I think it would be reasonable to proceed with surger y, although the risk is probably at least moderate. For now, we will try to optimize his rate contr ol. The patient has a pacemaker, so it would be safe to enhance beta blockade as needed. Other ray n that, will continue to optimize care and follow up with a 2D echo. PAST MEDICAL HISTORY: Hypertension, dyslipidemia, history of atrial fibrillation, history of elena cardia, now with a pacemaker, history of tachybrady syndrome. History of peripheral cardiomyopathy with unknown to me, current ejection fraction. ALLERGIES: NO KNOWN ALLERGIES. SOCIAL HISTORY: The patient does not smoke, does not drink, does not use any drugs. FAMILY HISTORY: Negative for sudden cardiac or premature coronary artery disease. MEDICATIONS: 1. ____ 2. Indomethacin 100 mg p.o. once a day. 2. Hydralazine 100 mg a day. 3. Lovenox 40 mg b.i.d. 4. Metoprolol 50 mg p.o. b.i.d. 5. Diltiazem IV as needed. REVIEW OF SYSTEMS : CONSTITUTIONAL: Has fevers, chills, abdominal discomfort. HEENT: No changes in vision or hearing. CARDIAC: Chest pain. ____ not reported, but tachycardia. RESPIRATORY: No shortness of breath. GASTROINTESTINAL: No nausea, vomiting. GENITOURINARY: No dysuria, hematuria. NEUROLOGIC: No focal deficits. HEMATOLOGIC: History of ____ state. PSYCHIATRIC: No known history of psychiatric illness. PHYSICAL EXAMINATION: VITAL SIGNS: Temperature is 98.3, heart rate is 16, is now blood pressure 157/81. GENERAL: He is a well-nourished gentleman, in some distress, now alert and oriented x3, aware of hi s condition. He is speaking Maltese. HEAD: Normocephalic, atraumatic. Eyes anicteric. NECK: Supple. JVD 7 to 8 cm. No lymphadenopathy. HEART: Irregularly irregular with soft holosystolic murmur mid chest, changes with respiration. PM I is minimally displaced. LUNGS: Coarse at the bases. ABDOMEN: Distended, bowel sounds are present. There is no hepatosplenomegaly. GENITOURINARY: Grossly intact. EXTREMITIES: Show no cyanosis, trace edema. SKIN: Showed ____ . NEUROLOGICAL: He is able to move his extremities. LABORATORY DATA: White blood cell count 5.6, hemoglobin is 12.3, platelets 144. INR is 1.23. Sodi um 144, potassium 4.1. His troponin is from 0.2 to 1.48 with a lipase 195. ASSESSMENT AND PLAN: 1. Atrial fibrillation. Patient's atrial fibrillation, chronic, now with tachycardia in the settin g of cholangitis. The patient requires ERCP to remove the stone. I think it is reasonable to proce ed with procedure as it is as urgent process. The patient is at least moderate risk, but reasonable to proceed given the possibility of sepsis if there is any GI procedures not performed. For now w ill try to rate control. 2. ____ state. The patient was on anticoagulation prior, now held for the procedure. 3. Tachycardia. the patient is in atrial fibrillation with rapid ventricular response. Will cont inue to increase beta blockers, tolerate pacemaker, patient has a pacemaker placed. Should avoid br adycardia as necessary. 4. Coronary artery disease. The patient has coronary artery disease. Troponin is slightly elevate d. Continue to monitor, continue to rate control. I would like to thank Dr. Salmon for referring this patient for my evaluation. Dictated By: NORA YOUSSEF/CASSIDY Conf#: [id number] DID#: [id number]
--- NOTE | 2016-10-06 12:46 | CONS ---
Date/Time of Note Date/Time of Note DATE: 10/06/16 TIME: 12:44 Assessment/Plan Assessment/Plan Additional Assessment/Plan Impression: 1. likely gallstone pancreatitis 2. epigastric and RUQ abdominal pain 3. 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 Anemia, r/o GIB Recommendation: 1. plan for ERCP Wednesday 2. IVF 3. continue zosyn 4. check lipase 5. stool for occult blood 6. risks, benefits and alternatives of ERCP d/w patient and his sisters through inspector automatic typewriter, after answering all of their questions, they agreed to proceed. pt. was schedule for ERCP,but staff gave Lovenox. ERCP tomorrow .Pt.cleared by hand pattern marker Consultation Date/Type/Reason Admit Date/Time Oct 04, 2016 at 18:09 Initial Consult Date Type of Consultation: GI 24 HR Interval Summary Free Text/Dictation abdominal pain Exam/Review of Systems Vital Signs Vitals Vital Signs Date Time Temp Pulse Resp B/P Pulse Ox O2 Delivery O2 Flow Rate FiO2 10/06/16 12:19 105 10/06/16 11:53 98.7 20 138/75 94 10/05/16 20:33 Nasal Cannula 2.0 Intake and Output 10/05/16 10/05/16 10/06/16 15:00 23:00 07:00 Intake Total 1500 ml 200 ml Output Total 200 ml Balance 1500 ml 0 ml Exam Constitutional: alert, oriented, well developed Psych: nl mood/affect, no complaints Head: atraumatic, normocephalic Eyes: EOMI, PERRL, nl conjunctiva, nl lids, nl sclera ENMT: nl external ears & nose, nl lips & teeth, nl nasal mucosa & septum Neck: non-tender, supple Respiratory: clear to auscultation, normal air movement Cardiovascular: nl pulses, regular rate and rhythm Gastrointestinal: nl liver, spleen, non-tender, soft Musculoskeletal: nl extremities to inspection, nl gait and stance Extremities: normal pulses Neurological: BRAND COORDINATOR II-XII intact, nl mental status, nl speech, nl strength Skin: nl turgor, No rash or lesions Lymph: nl lymph nodes Results Result Diagram: 10/06/16 0516 10/06/16 0516 Results 24 hrs Laboratory Tests Test 10/05/16 17:15 10/06/16 05:16 10/06/16 05:27 10/06/16 08:42 Troponin I 0.225 *H 0.148 *H Alanine Aminotransferase (ALT/SGPT) 127 H Albumin 3.2 L Albumin/Globulin Ratio 0.84 Alkaline Phosphatase 195 H Anion Gap 16 Aspartate Amino Transf (AST/SGOT) 102 #H Basophils # 0.0 Basophils % 0.3 Blood Morphology Comment Blood Urea Nitrogen 11 Calcium Level 8.5 Carbon Dioxide Level 23 Chloride Level 109 Creatinine 0.81 Direct Bilirubin 1.70 H Eosinophils # 0.1 Eosinophils % 1.0 Globulin 3.80 H Glucose Level 101 Hematocrit 36.7 L Hemoglobin 12.3 L Indirect Bilirubin 3.2 H Lipase 195 Lymphocytes # 1.3 Lymphocytes % 23.7 Mean Corpuscular Hemoglobin 29.1 Mean Corpuscular Hemoglobin Concent 33.4 Mean Corpuscular Volume 87.1 Mean Platelet Volume 10.4 Monocytes # 0.4 Monocytes % 7.1 Neutrophils # 3.8 Neutrophils % 67.9 Nucleated Red Blood Cells # 0.0 Nucleated Red Blood Cells % 0.0 Platelet Count 144 Potassium Level 4.1 Red Blood Count 4.22 L Red Cell Distribution Width 15.2 H Sodium Level 144 Total Bilirubin 4.9 H Total Protein 7.0 # White Blood Count 5.6 Cholesterol Level 94 L Cholesterol/HDL Ratio 4.2 HDL Cholesterol 22 L LDL Cholesterol, Calculated 53 Thyroid Stimulating Hormone (TSH) 2.480 Triglycerides Level 94 Medications Medications Current Medications Acetaminophen (Tylenol Tab) 650 mg Q6H PRN PO PAIN AND OR ELEVATED TEMP; Start 10/04/16 at 21:30 Pantoprazole (Protonix Iv) 40 mg DAILY@06 IV Last administered on 10/06/16 05: 22; Admin Dose 40 MG; Start 10/05/16 at 06:00 Ondansetron HCl (Zofran Inj) 4 mg Q6H PRN IV NAUSEA AND/OR VOMITING; Start 10/04 at 21:30 Morphine Sulfate (morphine) 2 mg Q4H PRN IV PAIN LEVEL 8-10 Last administered on 10/06/16 09:50; Admin Dose 2 MG; Start 10/04/16 at 21:30 Diltiazem HCl (Cardizem Iv) 10 mg Q1H PRN IV ELEVATED HEART RATE Last administered on 10/06/16 08:26; Admin Dose 10 MG; Start 10/04/16 at 21:30 Miscellaneous Information (* Miscellaneous Pharmacy Order) ZOSYN IVPB PHARMACY TO DOSE. ONCE XX ; Start 10/04/16 at 23:30 Indomethacin 100 mg 100 mg ONCE [place] ; Start 10/06/16 at 07:00; Stop 10/06/16 at 22: 00 Potassium Cl/ Dextrose/Lact Ringer's 1,000 ml @ 100 mls/hr Q10H IV Last administered on 10/06/16 10:59; Admin Dose 100 MLS/HR; Start 10/05/16 at 09:00 Piperacillin Sod/ Tazobactam Sod (Zosyn 3.375gm/ 100 ml (Pmx)) 100 ml @ 200 mls /hr Q6 IVPB Last administered on 10/06/16 11:52; Admin Dose 200 MLS/HR; Start 10/05/16 at 13:30 Enoxaparin Sodium (Lovenox) 40 mg Q12 SC Last administered on 10/06/16 08:29; Admin Dose 40 MG; Start 10/05/16 at 21:00 Metoprolol Tartrate (Lopressor) 50 mg BID PO Last administered on 10/06/16 09: 08; Admin Dose 50 MG; Start 10/05/16 at 21:00 Metoprolol Tartrate (Lopressor) 2.5 mg Q6H PRN IV ELEVATED HEART RATE; Start at 16:30 Aspirin (Aspirin) 81 mg DAILY PO Last administered on 10/06/16 09:49; Admin Dose 81 MG; Start 10/06/16 at 09:00 Hydralazine HCl (Apresoline) 10 mg Q4H PRN IV ELEVATED BLOOD PRESSURE Last administered on 10/06/16 06:35; Admin Dose 10 MG; Start 10/06/16 at 06:30 Metoprolol Tartrate (Lopressor) 5 mg Q6 IV Last administered on 10/06/16 11:57 ; Admin Dose 5 MG; Start 10/06/16 at 12:00 FRANKO CASTAÑEDA MD Oct 06, 2016 12:46
--- NOTE | 2016-10-06 16:48 | PN ---
Date/Time of Note Date/Time of Note DATE: 10/06/16 TIME: 16:46 Assessment/Plan VTE Prophylaxis VTE Prophylaxis Intervention: other Lines/Catheters IV Catheter Type (from Nrs): Peripheral IV Assessment/Plan Chief Complaint/Hosp Course IMPRESSION: 1. Acute liver failure. 2. Sepsis. 3. Common bile duct stone. 4. Hypertension. 5. Atrial fibrillation. 6. Atherosclerosis. 7. Cardiac arrhythmia 8. Anemia. 9 nstemi plan per gi and cardio Problems: Subjective 24 Hr Interval Summary Respiratory: no complaints Cardiovascular: no complaints Gastrointestinal: pain (better) Exam/Review of Systems Vital Signs Vitals Vital Signs Date Time Temp Pulse Resp B/P Pulse Ox O2 Delivery O2 Flow Rate FiO2 10/06/16 15:44 98.6 97 20 143/81 93 10/06/16 09:30 Nasal Cannula 2.0 Intake and Output 10/05/16 10/05/16 10/06/16 15:00 23:00 07:00 Intake Total 1500 ml 200 ml Output Total 200 ml Balance 1500 ml 0 ml Exam Neck: supple Respiratory: clear to auscultation Cardiovascular: regular rate and rhythm Gastrointestinal: bowel sounds (+), non-tender, soft Musculoskeletal: nl extremities to inspection Extremities: normal pulses Results Result Diagram: 10/06/16 0516 10/06/16 0516 Results 24 hrs Laboratory Tests Test 10/05/16 17:15 10/06/16 05:16 10/06/16 05:27 10/06/16 08:42 Troponin I 0.225 *H 0.148 *H Alanine Aminotransferase (ALT/SGPT) 127 H Albumin 3.2 L Albumin/Globulin Ratio 0.84 Alkaline Phosphatase 195 H Anion Gap 16 Aspartate Amino Transf (AST/SGOT) 102 #H Basophils # 0.0 Basophils % 0.3 Blood Morphology Comment Blood Urea Nitrogen 11 Calcium Level 8.5 Carbon Dioxide Level 23 Chloride Level 109 Creatinine 0.81 Direct Bilirubin 1.70 H Eosinophils # 0.1 Eosinophils % 1.0 Globulin 3.80 H Glucose Level 101 Hematocrit 36.7 L Hemoglobin 12.3 L Indirect Bilirubin 3.2 H Lipase 195 Lymphocytes # 1.3 Lymphocytes % 23.7 Mean Corpuscular Hemoglobin 29.1 Mean Corpuscular Hemoglobin Concent 33.4 Mean Corpuscular Volume 87.1 Mean Platelet Volume 10.4 Monocytes # 0.4 Monocytes % 7.1 Neutrophils # 3.8 Neutrophils % 67.9 Nucleated Red Blood Cells # 0.0 Nucleated Red Blood Cells % 0.0 Platelet Count 144 Potassium Level 4.1 Red Blood Count 4.22 L Red Cell Distribution Width 15.2 H Sodium Level 144 Total Bilirubin 4.9 H Total Protein 7.0 # White Blood Count 5.6 Cholesterol Level 94 L Cholesterol/HDL Ratio 4.2 HDL Cholesterol 22 L LDL Cholesterol, Calculated 53 Thyroid Stimulating Hormone (TSH) 2.480 Triglycerides Level 94 Medications Medications Current Medications Acetaminophen (Tylenol Tab) 650 mg Q6H PRN PO PAIN AND OR ELEVATED TEMP; Start 10/04/16 at 21:30 Pantoprazole (Protonix Iv) 40 mg DAILY@06 IV Last administered on 10/06/16 05: 22; Admin Dose 40 MG; Start 10/05/16 at 06:00 Ondansetron HCl (Zofran Inj) 4 mg Q6H PRN IV NAUSEA AND/OR VOMITING; Start 10/04 at 21:30 Morphine Sulfate (morphine) 2 mg Q4H PRN IV PAIN LEVEL 8-10 Last administered on 10/06/16 09:50; Admin Dose 2 MG; Start 10/04/16 at 21:30 Diltiazem HCl (Cardizem Iv) 10 mg Q1H PRN IV ELEVATED HEART RATE Last administered on 10/06/16 08:26; Admin Dose 10 MG; Start 10/04/16 at 21:30 Miscellaneous Information (* Miscellaneous Pharmacy Order) ZOSYN IVPB PHARMACY TO DOSE. ONCE XX ; Start 10/04/16 at 23:30 Indomethacin 100 mg 100 mg ONCE [place] ; Start 10/06/16 at 07:00; Stop 10/06/16 at 22: 00 Potassium Cl/ Dextrose/Lact Ringer's 1,000 ml @ 100 mls/hr Q10H IV Last administered on 10/06/16 10:59; Admin Dose 100 MLS/HR; Start 10/05/16 at 09:00 Piperacillin Sod/ Tazobactam Sod (Zosyn 3.375gm/ 100 ml (Pmx)) 100 ml @ 200 mls /hr Q6 IVPB Last administered on 10/06/16 11:52; Admin Dose 200 MLS/HR; Start 10/05/16 at 13:30 Metoprolol Tartrate (Lopressor) 50 mg BID PO Last administered on 10/06/16 09: 08; Admin Dose 50 MG; Start 10/05/16 at 21:00 Metoprolol Tartrate (Lopressor) 2.5 mg Q6H PRN IV ELEVATED HEART RATE; Start at 16:30 Aspirin (Aspirin) 81 mg DAILY PO Last administered on 10/06/16 09:49; Admin Dose 81 MG; Start 10/06/16 at 09:00 Hydralazine HCl (Apresoline) 10 mg Q4H PRN IV ELEVATED BLOOD PRESSURE Last administered on 10/06/16 06:35; Admin Dose 10 MG; Start 10/06/16 at 06:30 Metoprolol Tartrate (Lopressor) 5 mg Q6 IV Last administered on 10/06/16 11:57 ; Admin Dose 5 MG; Start 10/06/16 at 12:00 REGI GOVEA MD Oct 06, 2016 16:47
[2016-10-07] VITALS (18 sets, daily range): BP systolic 117–184; BP diastolic 63–114; PULSE 64–133; RESP 16–23
[2016-10-07] MEDS: PIPER-TAZO 3.375 GM IV (PMX) 100 ML IVPB SCH ×4 (00:49→18:17)
[2016-10-07] MEDS: METOPROLOL 5 MG INJ IV SCH ×4 (00:50→18:17)
[2016-10-07] MEDS: D5-LR + KCL 20 MEQ 1,000 ML IV SCH ×3 (00:51→21:09)
[2016-10-07] MEDS: PANTOPRAZOLE 40 MG INJ IV SCH (06:24)
[2016-10-07 06:55] LABS: ALBUMIN 2.8 g/dl (3.3-4.9)
[2016-10-07 06:56] LABS: POTASSIUM 4.4 mmol/L (3.5-5.1)
[2016-10-07 06:58] LABS: ALBUMIN/GLOBULIN RATIO 0.87; BILIRUBIN,DIRECT 0.4 mg/dl (0.00-0.20); BILIRUBIN,INDIRECT 2.4 mg/dl (0-1.1); BILIRUBIN,TOTAL 2.8 mg/dl (0.2-1.3); CREATININE 0.78 mg/dl (0.61-1.24)
[2016-10-07 06:59] LABS: CALCIUM 8.6 mg/dl (8.4-10.2)
[2016-10-07] MEDS ORDERED: SUCCINYLCHOLINE CHLORIDE 100 MG/5 ML SYG IV ONE (07:00)
[2016-10-07] MEDS: ASPIRIN 81 MG TAB PO SCH (07:25)
[2016-10-07] MEDS: METOPROLOL 50 MG TAB PO SCH ×2 (07:26→21:09)
[2016-10-07] MEDS ORDERED: LIDOCAINE 2% (SDV) 5 ML INJ ONE (08:58)
[2016-10-07] MEDS ORDERED: FENTAnyl 50 MCG/ML VIAL ONE (08:58)
[2016-10-07] MEDS ORDERED: NEOSTIGMINE 3 MG/3 ML SYRINGE ONE (08:58)
[2016-10-07] MEDS ORDERED: MIDAZOLAM 1 MG/ML 2 ML INJ ONE (08:58)
[2016-10-07] MEDS ORDERED: PROPOFOL 20 ML ONE (08:58)
[2016-10-07] MEDS ORDERED: GLYCOPYRROLATE 0.4 MG INJ ONE (08:58)
[2016-10-07] MEDS ORDERED: ROCURONIUM 50 MG INJ ONE (08:58)
--- NOTE | 2016-10-07 11:50 | CONS ---
Date/Time of Note Date/Time of Note DATE: 10/07/16 TIME: 11:36 Assessment/Plan Assessment/Plan Chief Complaint/Hosp Course Imp: 1.AF 2.Cardiomyopathy-EF 35% 3.HTN 4.Positive troponin-downtrended 5.Pancreatitis-gallstone 6.LFT's Recc: -Tele -serial ecg's -continue abx's -Continue BB/asa -Give digoxin IVP load to imrpove HR -Continue low dose lovenox after ERCP todat -trend cardiac enzymes -Follow volume status closely Problems: Consultation Date/Type/Reason Admit Date/Time Oct 04, 2016 at 18:09 Initial Consult Date 10/06/2016 Type of Consultation: Cardiology Reason for Consultation Positive troponin/AF/cardiomyopathy Referring Provider: REGI GOVEA Exam/Review of Systems Vital Signs Vitals Vital Signs Date Time Temp Pulse Resp B/P Pulse Ox O2 Delivery O2 Flow Rate FiO2 10/07/16 08:13 91 10/07/16 07:46 Nasal Cannula 2.0 10/07/16 07:21 97.7 20 145/77 99 Intake and Output 10/06/16 10/06/16 10/07/16 15:00 23:00 07:00 Intake Total 0 ml Balance 0 ml Exam Review of Systems: CONSTITUTIONAL: No fevers, chills. PULMONARY: No sob CARDIOVASCULAR: No chest pain/palpitations GASTROINTESTINAL: positive abd pain GENITOURINARY: No hematuria/dysuria. MUSCULOSKELETAL: No myagias/arthalgias. PSYCHIATRIC: The patient denies depression. NEUROLOGIC: No weakness Constitutional: alert Psych: no complaints Head: normocephalic ENMT: mucosa pink and moist Neck: jvd (9 cm water), supple Respiratory: diminished breath sounds Cardiovascular: regular rate and rhythm Gastrointestinal: non-tender, soft Musculoskeletal: muscle tone Extremities: edema Neurological: other (No focal deficits) Results Result Diagram: 10/06/16 0516 10/07/16 0555 Results 24 hrs Laboratory Tests Test 10/07/16 05:55 Alanine Aminotransferase (ALT/SGPT) 99 H Albumin 2.8 L Albumin/Globulin Ratio 0.87 Alkaline Phosphatase 157 H Anion Gap 15 Aspartate Amino Transf (AST/SGOT) 65 H Blood Urea Nitrogen 9 Calcium Level 8.6 Carbon Dioxide Level 23 Chloride Level 108 Creatinine 0.78 Direct Bilirubin 0.40 #H Globulin 3.20 Glucose Level 98 Indirect Bilirubin 2.4 H Potassium Level 4.4 Sodium Level 142 Total Bilirubin 2.8 #H Total Protein 6.0 #L Medications Medications Current Medications Acetaminophen (Tylenol Tab) 650 mg Q6H PRN PO PAIN AND OR ELEVATED TEMP; Start 10/04/16 at 21:30 Pantoprazole (Protonix Iv) 40 mg DAILY@06 IV Last administered on 10/07/16 06: 24; Admin Dose 40 MG; Start 10/05/16 at 06:00 Ondansetron HCl (Zofran Inj) 4 mg Q6H PRN IV NAUSEA AND/OR VOMITING; Start 10/04 at 21:30 Morphine Sulfate (morphine) 2 mg Q4H PRN IV PAIN LEVEL 8-10 Last administered on 10/06/16 09:50; Admin Dose 2 MG; Start 10/04/16 at 21:30 Diltiazem HCl (Cardizem Iv) 10 mg Q1H PRN IV ELEVATED HEART RATE Last administered on 10/06/16 08:26; Admin Dose 10 MG; Start 10/04/16 at 21:30 Miscellaneous Information [facility] IVPB PHARMACY TO DOSE. ONCE XX ; Start 10/04/16 at 23:30 Potassium Cl/ Dextrose/Lact Ringer's 1,000 ml @ 100 mls/hr Q10H IV Last administered on 10/07/16 00:51; Admin Dose 100 MLS/HR; Start 10/05/16 at 09:00 Piperacillin Sod/ Tazobactam Sod (Zosyn 3.375gm/ 100 ml (Pmx)) 100 ml @ 200 mls /hr Q6 IVPB Last administered on 10/07/16 06:22; Admin Dose 200 MLS/HR; Start 10/05/16 at 13:30 Metoprolol Tartrate (Lopressor) 50 mg BID PO Last administered on 10/06/16 21: 10; Admin Dose 50 MG; Start 10/05/16 at 21:00 Metoprolol Tartrate (Lopressor) 2.5 mg Q6H PRN IV ELEVATED HEART RATE; Start at 16:30 Aspirin (Aspirin) 81 mg DAILY PO Last administered on 10/06/16 09:49; Admin Dose 81 MG; Start 10/06/16 at 09:00 Hydralazine HCl (Apresoline) 10 mg Q4H PRN IV ELEVATED BLOOD PRESSURE Last administered on 10/06/16 06:35; Admin Dose 10 MG; Start 10/06/16 at 06:30 Metoprolol Tartrate (Lopressor) 5 mg Q6 IV Last administered on 10/07/16 06:24 ; Admin Dose 5 MG; Start 10/06/16 at 12:00 ISRAEL TRAN Oct 07, 2016 11:47
[2016-10-07] MEDS ORDERED: INDOMETHACIN 50 MG SUPP PR ONE (12:04)
[2016-10-07] MEDS ORDERED: IOHEXOL 300MG/ML 30 ML BTL ONE (12:04)
[2016-10-07] MEDS ORDERED: LABETALOL HCL 20MG INJ ONE ×2 (12:09→13:31)
[2016-10-07] MEDS ORDERED: LABETALOL HCL 20MG INJ IV STA (13:31)
--- NOTE | 2016-10-07 13:32 | GILP ---
DATE OF PROCEDURE: PROCEDURE: ERCP, sphincterotomy and removal of the 3 large stones. INDICATION: An 86-year-old male undergoing this procedure for ascending cholangitis. The risk of t he procedure, related and unrelated complications, anesthetic risks, alternatives discussed. Inform ed consent was obtained. DESCRIPTION OF PROCEDURE: The patient was brought to room #8, intubated and placed in a prone posit ion by Dr. Garcia. The patient was already on antibiotics. Indocin suppository was administered. Scope was passed with much ease into esophagus, advanced further down into stomach and duodenum. Am velma was identified, selectively cannulated. Two large stones 1.5 cm in diameter identified in the bile duct. Large sphincterotomy was done and with balloon sweeping, 3 large stones were removed. There was also another stone which was crushed by balloon and the kissing technique with the scope. All 3 stones came out successfully through the sphincterotomy site. Pictures were taken for docume ntation. At the end of the removal of the stone, the drainage was excellent, 12 mm balloon would ex it without any resistance. Scope was removed with excellent patient tolerance. IMPRESSION: 1. Large sphincterotomy done. 2. One stone was crushed with the help of balloon, abutting against the scope by kissing technique. was removed. Three stones were then successfully removed. Each one was ranging in diameter from 1.5 to 2 cm. 3. Excellent drainage established. PLAN: Monitor LFT. Continue antibiotic and will start the patient on a clear liquid diet once she is extubated and is asymptomatic. Dictated By: FRANKO PENNY/CASSIDY Conf#: [id number] DID#: [id number] CC: REGI GOVEA MD;*EndCC*
[2016-10-07] MEDS: DIGOXIN 500 MCG INJ IV SCH ×2 (14:23→18:17)
--- NOTE | 2016-10-07 16:25 | RADRPT ---
PROCEDURE: Intraoperative imaging for ERCP with fluoroscopy. CLINICAL INDICATION: Right upper quadrant pain. Intraoperative. TECHNIQUE: 2 images of the right upper quadrant of the abdomen were obtained in the operating room with an image intensifier. No radiologist was in attendance. 3.7 seconds of fluoroscopy time was used. COMPARISON: CT scan of the abdomen and pelvis dated 10/04/2016. FINDINGS: Images demonstrate the endoscope in position. Contrast was injected into the common bile duct. The re are filling defects consistent with stones. IMPRESSION: 1. ERCP as described above. RPTAT: QQ .Tashi Steward MD, Date Time Electronically viewed and signed by .Tashi Steward MD, on 10/07/2016 16:25 .R/
[2016-10-07] MEDS: DILTIAZEM 25 MG INJ IV PRN (16:27)
--- NOTE | 2016-10-07 18:40 | PN ---
Date/Time of Note Date/Time of Note DATE: 10/07/16 TIME: 18:38 Assessment/Plan VTE Prophylaxis VTE Prophylaxis Intervention: other Lines/Catheters IV Catheter Type (from Nrs): Peripheral IV Urinary Cath still in place: No Assessment/Plan Chief Complaint/Hosp Course IMPRESSION: 1. Acute liver failure. 2. Sepsis. 3. Common bile duct stone.s/p Large sphincterotomy done. 4. Hypertension. 5. Atrial fibrillation. 6. Atherosclerosis. 7. Cardiac arrhythmia 8. Anemia. 9 nstemi plan per gi and cardio Problems: Subjective 24 Hr Interval Summary Gastrointestinal: no complaints Genitourinary: no complaints Exam/Review of Systems Vital Signs Vitals Vital Signs Date Time Temp Pulse Resp B/P Pulse Ox O2 Delivery O2 Flow Rate FiO2 10/07/16 16:33 133 10/07/16 15:46 97.5 20 168/96 99 10/07/16 13:42 Nasal Cannula 2.0 Intake and Output 10/06/16 10/06/16 10/07/16 15:00 23:00 07:00 Intake Total 0 ml Balance 0 ml Exam Neck: supple Respiratory: clear to auscultation Cardiovascular: regular rate and rhythm Gastrointestinal: soft Musculoskeletal: nl extremities to inspection Extremities: normal pulses Results Result Diagram: 10/06/16 0516 10/07/16 0555 Results 24 hrs Laboratory Tests Test 10/07/16 05:55 Alanine Aminotransferase (ALT/SGPT) 99 H Albumin 2.8 L Albumin/Globulin Ratio 0.87 Alkaline Phosphatase 157 H Anion Gap 15 Aspartate Amino Transf (AST/SGOT) 65 H Blood Urea Nitrogen 9 Calcium Level 8.6 Carbon Dioxide Level 23 Chloride Level 108 Creatinine 0.78 Direct Bilirubin 0.40 #H Globulin 3.20 Glucose Level 98 Indirect Bilirubin 2.4 H Potassium Level 4.4 Sodium Level 142 Total Bilirubin 2.8 #H Total Protein 6.0 #L Medications Medications Current Medications Acetaminophen (Tylenol Tab) 650 mg Q6H PRN PO PAIN AND OR ELEVATED TEMP; Start 10/04/16 at 21:30 Pantoprazole (Protonix Iv) 40 mg DAILY@06 IV Last administered on 10/07/16t 06: 24; Admin Dose 40 MG; Start 10/05/16 at 06:00 Ondansetron HCl (Zofran Inj) 4 mg Q6H PRN IV NAUSEA AND/OR VOMITING; Start 10/04 at 21:30 Morphine Sulfate (morphine) 2 mg Q4H PRN IV PAIN LEVEL 8-10 Last administered on 10/06/16 09:50; Admin Dose 2 MG; Start 10/04/16 at 21:30 Diltiazem HCl (Cardizem Iv) 10 mg Q1H PRN IV ELEVATED HEART RATE Last administered on 10/07/16 16:27; Admin Dose 10 MG; Start 10/04/16 at 21:30 Miscellaneous Information ZOSYN IVPB PHARMACY TO DOSE. ONCE XX ; Start 10/04/16 at 23:30 Potassium Cl/ Dextrose/Lact Ringer's 1,000 ml @ 100 mls/hr Q10H IV Last administered on 10/07/16 16:32; Admin Dose 100 MLS/HR; Start 10/05/16 at 09:00 Piperacillin Sod/ Tazobactam Sod (Zosyn 3.375gm/ 100 ml (Pmx)) 100 ml @ 200 mls /hr Q6 IVPB Last administered on 10/07/16 18:17; Admin Dose 200 MLS/HR; Start 10/05/16 at 13:30 Metoprolol Tartrate (Lopressor) 50 mg BID PO Last administered on 10/06/16 21: 10; Admin Dose 50 MG; Start 10/05/16 at 21:00 Metoprolol Tartrate (Lopressor) 2.5 mg Q6H PRN IV ELEVATED HEART RATE; Start at 16:30 Aspirin (Aspirin) 81 mg DAILY PO Last administered on 10/06/16 09:49; Admin Dose 81 MG; Start 10/06/16 at 09:00 Hydralazine HCl (Apresoline) 10 mg Q4H PRN IV ELEVATED BLOOD PRESSURE Last administered on 10/06/16 06:35; Admin Dose 10 MG; Start 10/06/16 at 06:30 Metoprolol Tartrate (Lopressor) 5 mg Q6 IV Last administered on 10/07/16 18:17 ; Admin Dose 5 MG; Start 10/06/16 at 12:00 REGI GOVEA MD Oct 07, 2016 18:39
[2016-10-07] MEDS: hydrALAzine 20 MG INJ IV PRN (21:08)
[2016-10-08] VITALS (13 sets, daily range): BP systolic 134–167; BP diastolic 63–78; PULSE 61–98; RESP 16–19
[2016-10-08] MEDS: PIPER-TAZO 3.375 GM IV (PMX) 100 ML IVPB SCH ×4 (00:02→17:20)
[2016-10-08] MEDS: METOPROLOL 5 MG INJ IV SCH ×4 (00:02→17:21)
[2016-10-08] MEDS: PANTOPRAZOLE 40 MG INJ IV SCH (05:33)
[2016-10-08 07:28] LABS: BASOPHILS % 0.5 % (0.0-2.0); EOSINOPHILS # 0.2 10^3/ul (0.0-0.5); EOSINOPHILS % 3.7 % (0.0-7.0); HEMATOCRIT 36.5 % (42.0-52.0); HEMOGLOBIN 12.1 g/dl (14.0-18.0); LYMPHOCYTES # 1.2 10^3/ul (0.8-2.9); MEAN CORPUSCULAR HEMOGLOBIN 28.8 pg (29.0-33.0); MEAN CORPUSCULAR VOLUME 87.1 fl (82.0-101.0); MEAN PLATELET VOLUME 10.3 fl (7.4-10.4); MONOCYTE # 0.4 10^3/ul (0.3-0.9); MONOCYTES % 7.7 % (0.0-11.0); NEUTROPHIL # 3.3 10^3/ul (1.6-7.5); NEUTROPHILS % 64.1 % (39.0-77.0); PLATELET COUNT 171 10^3/UL (140-440); RED BLOOD COUNT 4.19 10^6/ul (4.70-6.10); RED CELL DISTRIBUTION WIDTH 14.8 % (11.5-14.5); UNCORRECTED WBC 5.1 10^3/ul (4.8-10.8); WHITE BLOOD COUNT 5.1 10^3/ul (4.8-10.8)
[2016-10-08 07:35] LABS: CONDITION 1; LH ANALYZER COMMENTS 1
[2016-10-08 08:01] LABS: ALBUMIN 2.9 g/dl (3.3-4.9); POTASSIUM 3.9 mmol/L (3.5-5.1)
[2016-10-08 08:03] LABS: ALBUMIN/GLOBULIN RATIO 0.82; BILIRUBIN,DIRECT 0.7 mg/dl (0.00-0.20); BILIRUBIN,INDIRECT 2.1 mg/dl (0-1.1); BILIRUBIN,TOTAL 2.8 mg/dl (0.2-1.3); CREATININE 0.7 mg/dl (0.61-1.24); TOTAL PROTEIN 6.4 g/dl (6.1-8.1)
[2016-10-08 08:04] LABS: CALCIUM 8.3 mg/dl (8.4-10.2)
[2016-10-08] MEDS: ASPIRIN 81 MG TAB PO SCH (08:35)
[2016-10-08] MEDS: METOPROLOL 50 MG TAB PO SCH ×2 (08:35→21:17)
[2016-10-08] MEDS: D5-LR + KCL 20 MEQ 1,000 ML IV SCH ×2 (10:24→17:00)
--- NOTE | 2016-10-08 11:21 | CONS ---
Date/Time of Note Date/Time of Note DATE: 10/08/16 TIME: 11:20 Assessment/Plan Assessment/Plan Additional Assessment/Plan Impression: 1. s/p removal of 3 large stones 2. epigastric and RUQ abdominal pain 3. 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 Anemia, r/o GIB Recommendation: 1. regular diet 2. IVF 3. continue zosyn Consultation Date/Type/Reason Admit Date/Time Oct 04, 2016 at 18:09 Type of Consultation: Cardiology Referring Provider: REGI GOVEA MD 24 HR Interval Summary Constitutional: improved, no complaints Exam/Review of Systems Vital Signs Vitals Vital Signs Date Time Temp Pulse Resp B/P Pulse Ox O2 Delivery O2 Flow Rate FiO2 10/08/16 08:11 97 10/08/16 07:30 98.1 18 167/77 95 10/07/16 21:00 Nasal Cannula 2.0 Intake and Output 10/07/16 10/07/16 10/08/16 15:00 23:00 07:00 Intake Total 200 ml Balance 200 ml Exam Constitutional: alert, oriented, well developed Psych: nl mood/affect, no complaints Head: atraumatic, normocephalic Eyes: EOMI, PERRL, nl conjunctiva, nl lids, nl sclera ENMT: nl external ears & nose, nl lips & teeth, nl nasal mucosa & septum Neck: non-tender, supple Respiratory: clear to auscultation, normal air movement Cardiovascular: nl pulses, regular rate and rhythm Gastrointestinal: nl liver, spleen, non-tender, soft Musculoskeletal: nl extremities to inspection, nl gait and stance Extremities: normal pulses 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, nl mental status, nl speech, nl strength Skin: nl turgor, No rash or lesions Lymph: nl lymph nodes Results Result Diagram: 10/08/16 0630 10/08/16 0630 Results 24 hrs Laboratory Tests Test 10/08/16 06:30 Alanine Aminotransferase (ALT/SGPT) 84 H Albumin 2.9 L Albumin/Globulin Ratio 0.82 Alkaline Phosphatase 188 H Anion Gap 14 Aspartate Amino Transf (AST/SGOT) 68 H Basophils # 0.0 Basophils % 0.5 Blood Morphology Comment Blood Urea Nitrogen 7 Calcium Level 8.3 L Carbon Dioxide Level 24 Chloride Level 106 Creatinine 0.70 Direct Bilirubin 0.70 #H Eosinophils # 0.2 Eosinophils % 3.7 Globulin 3.50 H Glucose Level 90 Hematocrit 36.5 L Hemoglobin 12.1 L Indirect Bilirubin 2.1 H Lymphocytes # 1.2 Lymphocytes % 24.0 Mean Corpuscular Hemoglobin 28.8 L Mean Corpuscular Hemoglobin Concent 33.0 Mean Corpuscular Volume 87.1 Mean Platelet Volume 10.3 Monocytes # 0.4 Monocytes % 7.7 Neutrophils # 3.3 Neutrophils % 64.1 Nucleated Red Blood Cells # 0.0 Nucleated Red Blood Cells % 0.0 Platelet Count 171 Potassium Level 3.9 Red Blood Count 4.19 L Red Cell Distribution Width 14.8 H Sodium Level 140 Total Bilirubin 2.8 H Total Protein 6.4 White Blood Count 5.1 Medications Medications Current Medications Acetaminophen (Tylenol Tab) 650 mg Q6H PRN PO PAIN AND OR ELEVATED TEMP; Start 10/04/16 at 21:30 Pantoprazole (Protonix Iv) 40 mg DAILY@06 IV Last administered on 10/08/16 05: 33; Admin Dose 40 MG; Start 10/05/16 at 06:00 Ondansetron HCl (Zofran Inj) 4 mg Q6H PRN IV NAUSEA AND/OR VOMITING; Start 10/04 at 21:30 Morphine Sulfate (morphine) 2 mg Q4H PRN IV PAIN LEVEL 8-10 Last administered on 10/06/16 09:50; Admin Dose 2 MG; Start 10/04/16 at 21:30 Diltiazem HCl (Cardizem Iv) 10 mg Q1H PRN IV ELEVATED HEART RATE Last administered on 10/07/16 16:27; Admin Dose 10 MG; Start 10/04/16 at 21:30 Miscellaneous Information [facility] IVPB PHARMACY TO DOSE. ONCE XX ; Start 10/04/16 at 23:30 Potassium Cl/ Dextrose/Lact Ringer's 1,000 ml @ 100 mls/hr Q10H IV Last administered on 10/08/16 10:24; Admin Dose 100 MLS/HR; Start 10/05/16 at 09:00 Piperacillin Sod/ Tazobactam Sod (Zosyn 3.375gm/ 100 ml (Pmx)) 100 ml @ 200 mls /hr Q6 IVPB Last administered on 10/08/16 05:33; Admin Dose 200 MLS/HR; Start 10/05/16 at 13:30 Metoprolol Tartrate (Lopressor) 50 mg BID PO Last administered on 10/08/16 08: 35; Admin Dose 50 MG; Start 10/05/16 at 21:00 Metoprolol Tartrate (Lopressor) 2.5 mg Q6H PRN IV ELEVATED HEART RATE; Start at 16:30 Aspirin (Aspirin) 81 mg DAILY PO Last administered on 10/08/16 08:35; Admin Dose 81 MG; Start 10/06/16 at 09:00 Hydralazine HCl (Apresoline) 10 mg Q4H PRN IV ELEVATED BLOOD PRESSURE Last administered on 10/07/16 21:08; Admin Dose 10 MG; Start 10/06/16 at 06:30 Metoprolol Tartrate (Lopressor) 5 mg Q6 IV Last administered on 10/08/16 05:34 ; Admin Dose 5 MG; Start 10/06/16 at 12:00 FRANKO CASTAÑEDA MD Oct 08, 2016 11:21
--- NOTE | 2016-10-08 12:19 | CONS ---
Date/Time of Note Date/Time of Note DATE: 10/08/16 TIME: 12:11 Assessment/Plan Assessment/Plan Chief Complaint/Hosp Course Imp: 1.AF 2.Cardiomyopathy-EF 35% 3.HTN 4.Positive troponin-downtrended 5.Pancreatitis-gallstone 6.LFT's Recc: -Tele -serial ecg's -start ACEI afterload reduction -continue abx's -Increase BB -start PO digoxin -s/p digoxin IVP load to improveHR -Continue low dose lovenox -trend cardiac enzymes -Follow volume status closely Problems: Consultation Date/Type/Reason Admit Date/Time Oct 04, 2016 at 18:09 Initial Consult Date 10/06/2016 Type of Consultation: Cardiology Reason for Consultation AF/cardiomyopathy Referring Provider: REGI GOVEA MD Exam/Review of Systems Vital Signs Vitals Vital Signs Date Time Temp Pulse Resp B/P Pulse Ox O2 Delivery O2 Flow Rate FiO2 10/08/16 08:11 97 10/08/16 07:30 98.1 18 167/77 95 10/07/16 21:00 Nasal Cannula 2.0 Intake and Output 10/07/16 10/07/16 10/08/16 15:00 23:00 07:00 Intake Total 200 ml Balance 200 ml Exam Review of Systems: CONSTITUTIONAL: No fevers, chills. PULMONARY: No sob CARDIOVASCULAR: No chest pain/palpitations GASTROINTESTINAL: No nausea/vomiting. GENITOURINARY: No hematuria/dysuria. MUSCULOSKELETAL: No myagias/arthalgias. PSYCHIATRIC: The patient denies depression. NEUROLOGIC: No weakness Constitutional: alert, oriented Psych: no complaints Head: normocephalic ENMT: mucosa pink and moist Neck: jvd (9 cm water), supple Respiratory: diminished breath sounds (at bases/B) Cardiovascular: regular rate and rhythm Gastrointestinal: non-tender, soft Musculoskeletal: muscle tone (normal) Extremities: edema Neurological: other (No focal deficits) Results Result Diagram: 10/08/16 0630 10/08/16 0630 Results 24 hrs Laboratory Tests Test 10/08/16 06:30 Alanine Aminotransferase (ALT/SGPT) 84 H Albumin 2.9 L Albumin/Globulin Ratio 0.82 Alkaline Phosphatase 188 H Anion Gap 14 Aspartate Amino Transf (AST/SGOT) 68 H Basophils # 0.0 Basophils % 0.5 Blood Morphology Comment Blood Urea Nitrogen 7 Calcium Level 8.3 L Carbon Dioxide Level 24 Chloride Level 106 Creatinine 0.70 Direct Bilirubin 0.70 #H Eosinophils # 0.2 Eosinophils % 3.7 Globulin 3.50 H Glucose Level 90 Hematocrit 36.5 L Hemoglobin 12.1 L Indirect Bilirubin 2.1 H Lymphocytes # 1.2 Lymphocytes % 24.0 Mean Corpuscular Hemoglobin 28.8 L Mean Corpuscular Hemoglobin Concent 33.0 Mean Corpuscular Volume 87.1 Mean Platelet Volume 10.3 Monocytes # 0.4 Monocytes % 7.7 Neutrophils # 3.3 Neutrophils % 64.1 Nucleated Red Blood Cells # 0.0 Nucleated Red Blood Cells % 0.0 Platelet Count 171 Potassium Level 3.9 Red Blood Count 4.19 L Red Cell Distribution Width 14.8 H Sodium Level 140 Total Bilirubin 2.8 H Total Protein 6.4 White Blood Count 5.1 Medications Medications Current Medications Acetaminophen (Tylenol Tab) 650 mg Q6H PRN PO PAIN AND OR ELEVATED TEMP; Start 10/04/16 at 21:30 Pantoprazole (Protonix Iv) 40 mg DAILY@06 IV Last administered on 10/08/16 05: 33; Admin Dose 40 MG; Start 10/05/16 at 06:00 Ondansetron HCl (Zofran Inj) 4 mg Q6H PRN IV NAUSEA AND/OR VOMITING; Start 10/04 at 21:30 Morphine Sulfate (morphine) 2 mg Q4H PRN IV PAIN LEVEL 8-10 Last administered on 10/06/16 09:50; Admin Dose 2 MG; Start 10/04/16 at 21:30 Diltiazem HCl (Cardizem Iv) 10 mg Q1H PRN IV ELEVATED HEART RATE Last administered on 10/07/16 16:27; Admin Dose 10 MG; Start 10/04/16 at 21:30 Miscellaneous Information ZOSYN IVPB PHARMACY TO DOSE. ONCE XX ; Start 10/04/16 at 23:30 Potassium Cl/ Dextrose/Lact Ringer's 1,000 ml @ 100 mls/hr Q10H IV Last administered on 10/08/16 10:24; Admin Dose 100 MLS/HR; Start 10/05/16 at 09:00 Piperacillin Sod/ Tazobactam Sod (Zosyn 3.375gm/ 100 ml (Pmx)) 100 ml @ 200 mls /hr Q6 IVPB Last administered on 10/08/16 05:33; Admin Dose 200 MLS/HR; Start 10/05/16 at 13:30 Metoprolol Tartrate (Lopressor) 50 mg BID PO Last administered on 10/08/16 08: 35; Admin Dose 50 MG; Start 10/05/16 at 21:00 Metoprolol Tartrate (Lopressor) 2.5 mg Q6H PRN IV ELEVATED HEART RATE; Start at 16:30 Aspirin (Aspirin) 81 mg DAILY PO Last administered on 10/08/16 08:35; Admin Dose 81 MG; Start 10/06/16 at 09:00 Hydralazine HCl (Apresoline) 10 mg Q4H PRN IV ELEVATED BLOOD PRESSURE Last administered on 10/07/16 21:08; Admin Dose 10 MG; Start 10/06/16 at 06:30 Metoprolol Tartrate (Lopressor) 5 mg Q6 IV Last administered on 10/08/16 05:34 ; Admin Dose 5 MG; Start 10/06/16 at 12:00 ISRAEL TRAN Oct 08, 2016 12:19
[2016-10-08] MEDS ORDERED: DIGOXIN 500 MCG INJ IV ONE (13:00)
[2016-10-08] MEDS: LISINOPRIL 5 MG TAB PO SCH (13:23)
--- NOTE | 2016-10-08 14:01 | PN ---
Date/Time of Note Date/Time of Note DATE: 10/08/16 TIME: 14:00 Assessment/Plan VTE Prophylaxis VTE Prophylaxis Intervention: other Lines/Catheters IV [facility]ter Type (from [facility]): Peripheral IV Urinary Cath still in place: No Assessment/Plan Chief Complaint/Hosp Course IMPRESSION: 1. Acute liver failure.better 2. Sepsis. 3. Common bile duct stone.s/p Large sphincterotomy done. 4. Hypertension. 5. Atrial fibrillation. 6. Atherosclerosis. 7. Cardiac arrhythmia 8. Anemia. 9 nstemi plan per gi and cardio Problems: Subjective 24 Hr Interval Summary Cardiovascular: no complaints, No palpitations Gastrointestinal: no complaints Exam/Review of Systems Vital Signs Vitals Vital Signs Date Time Temp Pulse Resp B/P Pulse Ox O2 Delivery O2 Flow Rate FiO2 10/08/16 12:34 98.2 77 19 137/75 94 10/07/16 21:00 Nasal Cannula 2.0 Intake and Output 10/07/16 10/07/16 10/08/16 14:59 22:59 06:59 Intake Total 200 ml Balance 200 ml Exam Respiratory: clear to auscultation Cardiovascular: regular rate and rhythm Musculoskeletal: nl extremities to inspection Extremities: normal pulses Results Result Diagram: 10/08/16 0630 10/08/16 0630 Results 24 hrs Laboratory Tests Test 10/08/16 06:30 Alanine Aminotransferase (ALT/SGPT) 84 H Albumin 2.9 L Albumin/Globulin Ratio 0.82 Alkaline Phosphatase 188 H Anion Gap 14 Aspartate Amino Transf (AST/SGOT) 68 H Basophils # 0.0 Basophils % 0.5 Blood Morphology Comment Blood Urea Nitrogen 7 Calcium Level 8.3 L Carbon Dioxide Level 24 Chloride Level 106 Creatinine 0.70 Direct Bilirubin 0.70 #H Eosinophils # 0.2 Eosinophils % 3.7 Globulin 3.50 H Glucose Level 90 Hematocrit 36.5 L Hemoglobin 12.1 L Indirect Bilirubin 2.1 H Lymphocytes # 1.2 Lymphocytes % 24.0 Mean Corpuscular Hemoglobin 28.8 L Mean Corpuscular Hemoglobin Concent 33.0 Mean Corpuscular Volume 87.1 Mean Platelet Volume 10.3 Monocytes # 0.4 Monocytes % 7.7 Neutrophils # 3.3 Neutrophils % 64.1 Nucleated Red Blood Cells # 0.0 Nucleated Red Blood Cells % 0.0 Platelet Count 171 Potassium Level 3.9 Red Blood Count 4.19 L Red Cell Distribution Width 14.8 H Sodium Level 140 Total Bilirubin 2.8 H Total Protein 6.4 White Blood Count 5.1 Medications Medications Current Medications Acetaminophen (Tylenol Tab) 650 mg Q6H PRN PO PAIN AND OR ELEVATED TEMP; Start 10/04/16 at 21:30 Pantoprazole (Protonix Iv) 40 mg DAILY@06 IV Last administered on 10/08/16 05: 33; Admin Dose 40 MG; Start 10/05/16 at 06:00 Ondansetron HCl (Zofran Inj) 4 mg Q6H PRN IV NAUSEA AND/OR VOMITING; Start 10/04 at 21:30 Morphine Sulfate (morphine) 2 mg Q4H PRN IV PAIN LEVEL 8-10 Last administered on 10/06/16 09:50; Admin Dose 2 MG; Start 10/04/16 at 21:30 Diltiazem HCl (Cardizem Iv) 10 mg Q1H PRN IV ELEVATED HEART RATE Last administered on 10/07/16 16:27; Admin Dose 10 MG; Start 10/04/16 at 21:30 Miscellaneous Information ZOSYN IVPB PHARMACY TO DOSE. ONCE XX ; Start 10/04/16 at 23:30 Potassium Cl/ Dextrose/Lact Ringer's 1,000 ml @ 100 mls/hr Q10H IV Last administered on 10/08/16 10:24; Admin Dose 100 MLS/HR; Start 10/05/16 at 09:00 Piperacillin Sod/ Tazobactam Sod (Zosyn 3.375gm/ 100 ml (Pmx)) 100 ml @ 200 mls /hr Q6 IVPB Last administered on 10/08/16 12:48; Admin Dose 200 MLS/HR; Start 10/05/16 at 13:30 Metoprolol Tartrate (Lopressor) 2.5 mg Q6H PRN IV ELEVATED HEART RATE; Start at 16:30 Aspirin (Aspirin) 81 mg DAILY PO Last administered on 10/08/16 08:35; Admin Dose 81 MG; Start 10/06/16 at 09:00 Hydralazine HCl (Apresoline) 10 mg Q4H PRN IV ELEVATED BLOOD PRESSURE Last administered on 10/07/16 21:08; Admin Dose 10 MG; Start 10/06/16 at 06:30 Metoprolol Tartrate (Lopressor) 5 mg Q6 IV Last administered on 10/08/16 12:48 ; Admin Dose 5 MG; Start 10/06/16 at 12:00 Metoprolol Tartrate (Lopressor) 75 mg BID PO ; Start 10/08/16 at 21:00 Digoxin (Digoxin) 0.125 mg DAILY@13 PO ; Start 10/09/16 at 09:00 Lisinopril (Zestril) 5 mg DAILY PO Last administered on 10/08/16 13:23; Admin Dose 5 MG; Start 10/08/16 at 13:00 Enoxaparin Sodium (Lovenox) 40 mg BID SC ; Start 10/08/16 at 21:00 REGI GOVEA MD Oct 08, 2016 14:00
[2016-10-08] MEDS: ENOXAPARIN 40 MG/0.4 ML SYG SC SCH (21:23)
[2016-10-09] VITALS (11 sets, daily range): BP systolic 164–194; BP diastolic 77–88; PULSE 60–71; RESP 16–21
[2016-10-09] MEDS: METOPROLOL 5 MG INJ IV SCH ×5 (00:44→23:28)
[2016-10-09] MEDS: PIPER-TAZO 3.375 GM IV (PMX) 100 ML IVPB SCH ×5 (00:44→23:29)
[2016-10-09] MEDS: D5-LR + KCL 20 MEQ 1,000 ML IV SCH ×2 (03:00→13:00)
[2016-10-09 06:05] LABS: POTASSIUM 3.9 mmol/L (3.5-5.1)
[2016-10-09 06:07] LABS: ALBUMIN/GLOBULIN RATIO 0.85; BILIRUBIN,INDIRECT 1.4 mg/dl (0-1.1); BILIRUBIN,TOTAL 1.4 mg/dl (0.2-1.3); CREATININE 0.8 mg/dl (0.61-1.24); TOTAL PROTEIN 6.5 g/dl (6.1-8.1)
[2016-10-09] MEDS: PANTOPRAZOLE 40 MG INJ IV SCH (06:07)
[2016-10-09 06:08] LABS: CALCIUM 8.4 mg/dl (8.4-10.2)
[2016-10-09 06:19] LABS: BASOPHILS % 0.4 % (0.0-2.0); EOSINOPHILS # 0.3 10^3/ul (0.0-0.5); EOSINOPHILS % 5.8 % (0.0-7.0); HEMATOCRIT 34.1 % (42.0-52.0); HEMOGLOBIN 11.4 g/dl (14.0-18.0); LYMPHOCYTES # 1.7 10^3/ul (0.8-2.9); LYMPHOCYTES % 33.5 % (15.0-51.0); MEAN CORPUSCULAR HGB CONC 33.4 g/dl (32.0-37.0); MEAN PLATELET VOLUME 10.2 fl (7.4-10.4); MONOCYTE # 0.5 10^3/ul (0.3-0.9); MONOCYTES % 9.6 % (0.0-11.0); NEUTROPHIL # 2.5 10^3/ul (1.6-7.5); NEUTROPHILS % 50.7 % (39.0-77.0); PLATELET COUNT 181 10^3/UL (140-440); RED BLOOD COUNT 3.92 10^6/ul (4.70-6.10); RED CELL DISTRIBUTION WIDTH 14.9 % (11.5-14.5)
[2016-10-09 06:31] LABS: CONDITION 1; LH ANALYZER COMMENTS 1
[2016-10-09] MEDS: DIGOXIN 0.125 MG TAB PO SCH ×2 (09:00→13:00)
[2016-10-09] MEDS: ASPIRIN 81 MG TAB PO SCH (09:49)
[2016-10-09] MEDS: METOPROLOL 50 MG TAB PO SCH ×2 (09:49→21:40)
[2016-10-09] MEDS: LISINOPRIL 5 MG TAB PO SCH (09:49)
[2016-10-09] MEDS: ENOXAPARIN 40 MG/0.4 ML SYG SC SCH ×2 (09:51→21:41)
--- NOTE | 2016-10-09 11:30 | CONS ---
Date/Time of Note Date/Time of Note DATE: 10/09/16 TIME: 11:29 Assessment/Plan Assessment/Plan Additional Assessment/Plan Assessment/Plan Additional Assessment/Plan Impression: 1. s/p removal of 3 large stones,pt.totally asymptomatic 2. epigastric and RUQ abdominal pain 4. Anemia, r/o GIB Recommendation: 1. regular diet 2. IVF 3. continue zosyn Consultation Date/Type/Reason Admit Date/Time Oct 04, 2016 at 18:09 Type of Consultation: Cardiology Referring Provider: REGI GOVEA MD 24 HR Interval Summary Constitutional: improved, no complaints Exam/Review of Systems Vital Signs Vitals Vital Signs Date Time Temp Pulse Resp B/P Pulse Ox O2 Delivery O2 Flow Rate FiO2 10/09/16 08:32 71 10/09/16 07:48 97.5 20 190/82 100 10/08/16 21:00 Nasal Cannula 2.0 Intake and Output 10/08/16 10/08/16 10/09/16 15:00 23:00 07:00 Intake Total 300 ml 200 ml Output Total 500 ml 600 ml Balance -200 ml -400 ml Exam Constitutional: alert, oriented, well developed Psych: nl mood/affect, no complaints Head: atraumatic, normocephalic Eyes: EOMI, PERRL, nl conjunctiva, nl lids, nl sclera ENMT: nl external ears & nose, nl lips & teeth, nl nasal mucosa & septum Neck: non-tender, supple Respiratory: clear to auscultation, normal air movement Cardiovascular: nl pulses, regular rate and rhythm Gastrointestinal: nl liver, spleen, non-tender, soft Musculoskeletal: nl extremities to inspection, nl gait and stance Extremities: normal pulses Neurological: TELEVISION REPAIRER II-XII intact, nl mental status, nl speech, nl strength Skin: nl turgor, No rash or lesions Lymph: nl lymph nodes Results Result Diagram: 10/09/16 0510 10/09/16 0510 Results 24 hrs Laboratory Tests Test 10/09/16 05:10 Alanine Aminotransferase (ALT/SGPT) 80 H Albumin 3.0 L Albumin/Globulin Ratio 0.85 Alkaline Phosphatase 159 H Anion Gap 16 Aspartate Amino Transf (AST/SGOT) 58 H Basophils # 0.0 Basophils % 0.4 Blood Morphology Comment Blood Urea Nitrogen 9 Calcium Level 8.4 Carbon Dioxide Level 24 Chloride Level 105 Creatinine 0.80 Direct Bilirubin 0.00 # Eosinophils # 0.3 Eosinophils % 5.8 Globulin 3.50 H Glucose Level 102 Hematocrit 34.1 L Hemoglobin 11.4 L Indirect Bilirubin 1.4 H Lymphocytes # 1.7 Lymphocytes % 33.5 Mean Corpuscular Hemoglobin 29.0 Mean Corpuscular Hemoglobin Concent 33.4 Mean Corpuscular Volume 87.0 Mean Platelet Volume 10.2 Monocytes # 0.5 Monocytes % 9.6 Neutrophils # 2.5 Neutrophils % 50.7 Nucleated Red Blood Cells # 0.0 Nucleated Red Blood Cells % 0.0 Platelet Count 181 Potassium Level 3.9 Red Blood Count 3.92 L Red Cell Distribution Width 14.9 H Sodium Level 141 Total Bilirubin 1.4 H Total Protein 6.5 White Blood Count 5.0 Medications Medications Current Medications Acetaminophen (Tylenol Tab) 650 mg Q6H PRN PO PAIN AND OR ELEVATED TEMP; Start 10/04/16 at 21:30 Pantoprazole (Protonix Iv) 40 mg DAILY@06 IV Last administered on 10/09/16 06: 07; Admin Dose 40 MG; Start 10/05/16 at 06:00 Ondansetron HCl (Zofran Inj) 4 mg Q6H PRN IV NAUSEA AND/OR VOMITING; Start 10/04 at 21:30 Morphine Sulfate (morphine) 2 mg Q4H PRN IV PAIN LEVEL 8-10 Last administered on 10/06/16 09:50; Admin Dose 2 MG; Start 10/04/16 at 21:30 Diltiazem HCl (Cardizem Iv) 10 mg Q1H PRN IV ELEVATED HEART RATE Last administered on 10/07/16 16:27; Admin Dose 10 MG; Start 10/04/16 at 21:30 Miscellaneous Information [facility] IVPB PHARMACY TO DOSE. ONCE XX ; Start 10/04/16 at 23:30 Potassium Cl/ Dextrose/Lact Ringer's 1,000 ml @ 100 mls/hr Q10H IV Last administered on 10/09/16 03:00; Admin Dose 100 MLS/HR; Start 10/05/16 at 09:00 Piperacillin Sod/ Tazobactam Sod (Zosyn 3.375gm/ 100 ml (Pmx)) 100 ml @ 200 mls /hr Q6 IVPB Last administered on 10/09/16 06:08; Admin Dose 200 MLS/HR; Start 10/05/16 at 13:30 Metoprolol Tartrate (Lopressor) 2.5 mg Q6H PRN IV ELEVATED HEART RATE; Start at 16:30 Aspirin (Aspirin) 81 mg DAILY PO Last administered on 10/09/16 09:49; Admin Dose 81 MG; Start 10/06/16 at 09:00 Hydralazine HCl (Apresoline) 10 mg Q4H PRN IV ELEVATED BLOOD PRESSURE Last administered on 10/07/16 21:08; Admin Dose 10 MG; Start 10/06/16 at 06:30 Metoprolol Tartrate (Lopressor) 5 mg Q6 IV Last administered on 10/09/16 06:09 ; Admin Dose 5 MG; Start 10/06/16 at 12:00 Metoprolol Tartrate (Lopressor) 75 mg BID PO Last administered on 10/09/16 09: 49; Admin Dose 75 MG; Start 10/08/16 at 21:00 Digoxin (Digoxin) 0.125 mg DAILY@13 PO ; Start 10/09/16 at 09:00 Lisinopril (Zestril) 5 mg DAILY PO Last administered on 10/09/16 09:49; Admin Dose 5 MG; Start 10/08/16 at 13:00 Enoxaparin Sodium (Lovenox) 40 mg BID SC Last administered on 10/09/16 09:51; Admin Dose 40 MG; Start 10/08/16 at 21:00 FRANKO CASTAÑEDA MD Oct 09, 2016 11:30
--- NOTE | 2016-10-09 12:20 | CONS ---
Date/Time of Note Date/Time of Note DATE: 10/09/16 TIME: 12:14 Assessment/Plan Assessment/Plan Chief Complaint/Hosp Course Imp: 1.AF 2.Cardiomyopathy-EF 35% 3.HTN 4.Positive troponin-downtrended 5.Pancreatitis-gallstone 6.LFT's Recc: -Tele -serial ecg's -Increase acei to improve BP -continue abx's -Continue BB/PO digoxin -s/p digoxin IVP load to improve HR -Continue low dose lovenox with transition back to pradaxa at D/C -Follow volume status closely Problems: Consultation Date/Type/Reason Admit Date/Time Oct 04, 2016 at 18:09 Initial Consult Date 10/06/2016 Type of Consultation: Cardiology Reason for Consultation PAF Referring Provider: REGI GOVEA MD Exam/Review of Systems Vital Signs Vitals Vital Signs Date Time Temp Pulse Resp B/P Pulse Ox O2 Delivery O2 Flow Rate FiO2 10/09/16 11:51 97.8 62 20 194/88 100 10/08/16 21:00 Nasal Cannula 2.0 Intake and Output 10/08/16 10/08/16 10/09/16 15:00 23:00 07:00 Intake Total 300 ml 200 ml Output Total 500 ml 600 ml Balance -200 ml -400 ml Exam Review of Systems: CONSTITUTIONAL: No fevers, chills. PULMONARY: No sob CARDIOVASCULAR: No chest pain/palpitations GASTROINTESTINAL: No nausea/vomiting. GENITOURINARY: No hematuria/dysuria. MUSCULOSKELETAL: No myagias/arthalgias. PSYCHIATRIC: The patient denies depression. NEUROLOGIC: No weakness Constitutional: alert, oriented Psych: no complaints Head: normocephalic ENMT: mucosa pink and moist Neck: jvd, supple Respiratory: diminished breath sounds Cardiovascular: regular rate and rhythm Gastrointestinal: non-tender, soft Musculoskeletal: muscle tone (normal) Extremities: edema (none) Neurological: other (No focal deficits) Results Result Diagram: 10/09/16 0510 10/09/16 0510 Results 24 hrs Laboratory Tests Test 10/09/16 05:10 Alanine Aminotransferase (ALT/SGPT) 80 H Albumin 3.0 L Albumin/Globulin Ratio 0.85 Alkaline Phosphatase 159 H Anion Gap 16 Aspartate Amino Transf (AST/SGOT) 58 H Basophils # 0.0 Basophils % 0.4 Blood Morphology Comment Blood Urea Nitrogen 9 Calcium Level 8.4 Carbon Dioxide Level 24 Chloride Level 105 Creatinine 0.80 Direct Bilirubin 0.00 # Eosinophils # 0.3 Eosinophils % 5.8 Globulin 3.50 H Glucose Level 102 Hematocrit 34.1 L Hemoglobin 11.4 L Indirect Bilirubin 1.4 H Lymphocytes # 1.7 Lymphocytes % 33.5 Mean Corpuscular Hemoglobin 29.0 Mean Corpuscular Hemoglobin Concent 33.4 Mean Corpuscular Volume 87.0 Mean Platelet Volume 10.2 Monocytes # 0.5 Monocytes % 9.6 Neutrophils # 2.5 Neutrophils % 50.7 Nucleated Red Blood Cells # 0.0 Nucleated Red Blood Cells % 0.0 Platelet Count 181 Potassium Level 3.9 Red Blood Count 3.92 L Red Cell Distribution Width 14.9 H Sodium Level 141 Total Bilirubin 1.4 H Total Protein 6.5 White Blood Count 5.0 Medications Medications Current Medications Acetaminophen (Tylenol Tab) 650 mg Q6H PRN PO PAIN AND OR ELEVATED TEMP; Start 10/04/16 at 21:30 Pantoprazole (Protonix Iv) 40 mg DAILY@06 IV Last administered on 10/09/16 06: 07; Admin Dose 40 MG; Start 10/05/16 at 06:00 Ondansetron HCl (Zofran Inj) 4 mg Q6H PRN IV NAUSEA AND/OR VOMITING; Start 10/04 at 21:30 Morphine Sulfate (morphine) 2 mg Q4H PRN IV PAIN LEVEL 8-10 Last administered on 10/06/16 09:50; Admin Dose 2 MG; Start 10/04/16 at 21:30 Diltiazem HCl (Cardizem Iv) 10 mg Q1H PRN IV ELEVATED HEART RATE Last administered on 10/07/16 16:27; Admin Dose 10 MG; Start 10/04/16 at 21:30 Miscellaneous Information ZOSYN IVPB PHARMACY TO DOSE. ONCE XX ; Start 10/04/16 at 23:30 Potassium Cl/ Dextrose/Lact Ringer's 1,000 ml @ 100 mls/hr Q10H IV Last administered on 10/09/16 03:00; Admin Dose 100 MLS/HR; Start 10/05/16 at 09:00 Piperacillin Sod/ Tazobactam Sod (Zosyn 3.375gm/ 100 ml (Pmx)) 100 ml @ 200 mls /hr Q6 IVPB Last administered on 10/09/16 06:08; Admin Dose 200 MLS/HR; Start 10/05/16 at 13:30 Metoprolol Tartrate (Lopressor) 2.5 mg Q6H PRN IV ELEVATED HEART RATE; Start at 16:30 Aspirin (Aspirin) 81 mg DAILY PO Last administered on 10/09/16 09:49; Admin Dose 81 MG; Start 10/06/16 at 09:00 Hydralazine HCl (Apresoline) 10 mg Q4H PRN IV ELEVATED BLOOD PRESSURE Last administered on 10/07/16 21:08; Admin Dose 10 MG; Start 10/06/16 at 06:30 Metoprolol Tartrate (Lopressor) 5 mg Q6 IV Last administered on 10/09/16 06:09 ; Admin Dose 5 MG; Start 10/06/16 at 12:00 Metoprolol Tartrate (Lopressor) 75 mg BID PO Last administered on 10/09/16 09: 49; Admin Dose 75 MG; Start 10/08/16 at 21:00 Digoxin (Digoxin) 0.125 mg DAILY@13 PO ; Start 10/09/16 at 09:00 Lisinopril (Zestril) 5 mg DAILY PO Last administered on 10/09/16 09:49; Admin Dose 5 MG; Start 10/08/16 at 13:00 Enoxaparin Sodium (Lovenox) 40 mg BID SC Last administered on 10/09/16 09:51; Admin Dose 40 MG; Start 10/08/16 at 21:00 ISRAEL TRAN Oct 09, 2016 12:20
--- NOTE | 2016-10-09 17:15 | PN ---
Date/Time of Note Date/Time of Note DATE: 10/09/16 TIME: 17:15 Assessment/Plan VTE Prophylaxis VTE Prophylaxis Intervention: other Lines/Catheters IV Catheter Type (from [facility] Peripheral IV Urinary Cath still in place: No Assessment/Plan Chief Complaint/Hosp Course IMPRESSION: 1. Acute liver failure.better 2. Sepsis. 3. Common bile duct stone.s/p Large sphincterotomy done. 4. Hypertension. 5. Atrial fibrillation. 6. Atherosclerosis. 7. Cardiac arrhythmia 8. Anemia. 9 nstemi plan per gi and cardio ck labs Problems: Subjective 24 Hr Interval Summary Cardiovascular: no complaints Gastrointestinal: no complaints Genitourinary: no complaints Exam/Review of Systems Vital Signs Vitals Vital Signs Date Time Temp Pulse Resp B/P Pulse Ox O2 Delivery O2 Flow Rate FiO2 10/09/16 16:52 98.3 61 20 186/85 100 10/08/16 21:00 Nasal Cannula 2.0 Intake and Output 10/08/16 10/08/16 10/09/16 15:00 23:00 07:00 Intake Total 300 ml 200 ml Output Total 500 ml 600 ml Balance -200 ml -400 ml Exam Neck: supple Respiratory: clear to auscultation Cardiovascular: regular rate and rhythm Gastrointestinal: soft Results Result Diagram: 10/09/16 0510 10/09/16 0510 Results 24 hrs Laboratory Tests Test 10/09/16 05:10 Alanine Aminotransferase (ALT/SGPT) 80 H Albumin 3.0 L Albumin/Globulin Ratio 0.85 Alkaline Phosphatase 159 H Anion Gap 16 Aspartate Amino Transf (AST/SGOT) 58 H Basophils # 0.0 Basophils % 0.4 Blood Morphology Comment Blood Urea Nitrogen 9 Calcium Level 8.4 Carbon Dioxide Level 24 Chloride Level 105 Creatinine 0.80 Direct Bilirubin 0.00 # Eosinophils # 0.3 Eosinophils % 5.8 Globulin 3.50 H Glucose Level 102 Hematocrit 34.1 L Hemoglobin 11.4 L Indirect Bilirubin 1.4 H Lymphocytes # 1.7 Lymphocytes % 33.5 Mean Corpuscular Hemoglobin 29.0 Mean Corpuscular Hemoglobin Concent 33.4 Mean Corpuscular Volume 87.0 Mean Platelet Volume 10.2 Monocytes # 0.5 Monocytes % 9.6 Neutrophils # 2.5 Neutrophils % 50.7 Nucleated Red Blood Cells # 0.0 Nucleated Red Blood Cells % 0.0 Platelet Count 181 Potassium Level 3.9 Red Blood Count 3.92 L Red Cell Distribution Width 14.9 H Sodium Level 141 Total Bilirubin 1.4 H Total Protein 6.5 White Blood Count 5.0 Medications Medications Current Medications Acetaminophen (Tylenol Tab) 650 mg Q6H PRN PO PAIN AND OR ELEVATED TEMP; Start 10/04/16 at 21:30 Pantoprazole (Protonix Iv) 40 mg DAILY@06 IV Last administered on 10/09/16 06: 07; Admin Dose 40 MG; Start 10/05/16 at 06:00 Ondansetron HCl (Zofran Inj) 4 mg Q6H PRN IV NAUSEA AND/OR VOMITING; Start 10/04 at 21:30 Morphine Sulfate (morphine) 2 mg Q4H PRN IV PAIN LEVEL 8-10 Last administered on 10/06/16 09:50; Admin Dose 2 MG; Start 10/04/16 at 21:30 Diltiazem HCl (Cardizem Iv) 10 mg Q1H PRN IV ELEVATED HEART RATE Last administered on 10/07/16 16:27; Admin Dose 10 MG; Start 10/04/16 at 21:30 Miscellaneous Information [facility] IVPB PHARMACY TO DOSE. ONCE XX ; Start 10/04/16 at 23:30 Potassium Cl/ Dextrose/Lact Ringer's 1,000 ml @ 100 mls/hr Q10H IV Last administered on 10/09/16 03:00; Admin Dose 100 MLS/HR; Start 10/05/16 at 09:00 Piperacillin Sod/ Tazobactam Sod (Zosyn 3.375gm/ 100 ml (Pmx)) 100 ml @ 200 mls /hr Q6 IVPB Last administered on 10/09/16 14:04; Admin Dose 200 MLS/HR; Start 10/05/16 at 13:30 Metoprolol Tartrate (Lopressor) 2.5 mg Q6H PRN IV ELEVATED HEART RATE; Start at 16:30 Aspirin (Aspirin) 81 mg DAILY PO Last administered on 10/09/16 09:49; Admin Dose 81 MG; Start 10/06/16 at 09:00 Hydralazine HCl (Apresoline) 10 mg Q4H PRN IV ELEVATED BLOOD PRESSURE Last administered on 10/07/16 21:08; Admin Dose 10 MG; Start 10/06/16 at 06:30 Metoprolol Tartrate (Lopressor) 5 mg Q6 IV Last administered on 10/09/16 14:05 ; Admin Dose 5 MG; Start 10/06/16 at 12:00 Metoprolol Tartrate (Lopressor) 75 mg BID PO Last administered on 10/09/16 09: 49; Admin Dose 75 MG; Start 10/08/16 at 21:00 Digoxin (Digoxin) 0.125 mg DAILY@13 PO ; Start 10/09/16 at 09:00 Enoxaparin Sodium (Lovenox) 40 mg BID SC Last administered on 10/09/16 09:51; Admin Dose 40 MG; Start 10/08/16 at 21:00 Lisinopril (Zestril) 10 mg BID PO ; Start 10/09/16 at 21:00 REGI GOVEA MD Oct 09, 2016 17:15
[2016-10-09] MEDS: LISINOPRIL 10 MG TAB PO SCH (21:40)
[2016-10-10] VITALS (13 sets, daily range): BP systolic 168–199; BP diastolic 81–96; PULSE 60–66; RESP 18–66
[2016-10-10] MEDS: D5-LR + KCL 20 MEQ 1,000 ML IV SCH ×2 (04:05→08:32)
[2016-10-10] MEDS: PIPER-TAZO 3.375 GM IV (PMX) 100 ML IVPB SCH ×2 (05:31→12:01)
[2016-10-10] MEDS: PANTOPRAZOLE 40 MG INJ IV SCH (05:31)
[2016-10-10] MEDS: METOPROLOL 5 MG INJ IV SCH ×3 (05:34→17:36)
[2016-10-10 06:54] LABS: ALBUMIN 3.1 g/dl (3.3-4.9)
[2016-10-10 06:57] LABS: ALBUMIN/GLOBULIN RATIO 0.86; CREATININE 0.75 mg/dl (0.61-1.24); TOTAL PROTEIN 6.7 g/dl (6.1-8.1)
[2016-10-10 06:58] LABS: CALCIUM 8.4 mg/dl (8.4-10.2)
[2016-10-10] MEDS: LISINOPRIL 10 MG TAB PO SCH ×2 (08:34→21:19)
[2016-10-10] MEDS: ASPIRIN 81 MG TAB PO SCH (08:34)
[2016-10-10] MEDS: METOPROLOL 50 MG TAB PO SCH ×2 (08:34→21:20)
[2016-10-10] MEDS: ENOXAPARIN 40 MG/0.4 ML SYG SC SCH ×2 (08:37→21:27)
--- NOTE | 2016-10-10 12:51 | PN ---
Date/Time of Note Date/Time of Note DATE: 10/10/16 TIME: 12:47 Assessment/Plan VTE Prophylaxis VTE Prophylaxis Intervention: SCD's Lines/Catheters IV Catheter Type (from Nrs): Saline Lock Urinary Cath still in place: No Assessment/Plan Assessment/Plan 1. Biilary sepsis due to Obstucted CBD stone s/p sphincterotomey with stone removal 2. Elevated troponin 3. Hypertension 4. Hyperlipidemia 5. Accelerated HTN Plan: d/c IVF,.D/c IV abx pt afebrile, Bp stable, WBC count normal Will ask cardiolgoy about any further plan for elevated troponin cardiology and GI has been following Plan: stable possible d/c home if ok with cardiology Subjective 24 Hr Interval Summary Free Text/Dictation pain controlled, Labs improving, BP stable Exam/Review of Systems Vital Signs Vitals Vital Signs Date Time Temp Pulse Resp B/P Pulse Ox O2 Delivery O2 Flow Rate FiO2 10/10/16 12:15 62 10/10/16 12:11 97.9 64 199/94 97 10/08/16 21:00 Nasal Cannula 2.0 Intake and Output 10/09/16 10/09/16 10/10/16 15:00 23:00 07:00 Intake Total 600 ml 420 ml Balance 600 ml 420 ml Exam Neck: supple Respiratory: clear to auscultation Cardiovascular: regular rate and rhythm Gastrointestinal: soft Results Result Diagram: 10/09/16 0510 10/10/16 0535 Results 24 hrs Laboratory Tests Test 10/10/16 05:35 Alanine Aminotransferase (ALT/SGPT) 79 H Albumin 3.1 L Albumin/Globulin Ratio 0.86 Alkaline Phosphatase 152 H Anion Gap 16 Aspartate Amino Transf (AST/SGOT) 53 H Blood Urea Nitrogen 10 Calcium Level 8.4 Carbon Dioxide Level 25 Chloride Level 103 Creatinine 0.75 Direct Bilirubin 0.00 Globulin 3.60 H Glucose Level 99 Indirect Bilirubin 1.0 Potassium Level 4.0 Sodium Level 140 Total Bilirubin 1.0 Total Protein 6.7 Medications Medications Current Medications Acetaminophen (Tylenol Tab) 650 mg Q6H PRN PO PAIN AND OR ELEVATED TEMP; Start 10/04/16 at 21:30 Pantoprazole (Protonix Iv) 40 mg DAILY@06 IV Last administered on 10/10/16t 05: 31; Admin Dose 40 MG; Start 10/05/16 at 06:00 Ondansetron HCl (Zofran Inj) 4 mg Q6H PRN IV NAUSEA AND/OR VOMITING; Start 10/04 at 21:30 Morphine Sulfate (morphine) 2 mg Q4H PRN IV PAIN LEVEL 8-10 Last administered on 10/06/16 09:50; Admin Dose 2 MG; Start 10/04/16 at 21:30 Diltiazem HCl (Cardizem Iv) 10 mg Q1H PRN IV ELEVATED HEART RATE Last administered on 10/07/16 16:27; Admin Dose 10 MG; Start 10/04/16 at 21:30 Miscellaneous Information ZOSYN IVPB PHARMACY TO DOSE. ONCE XX ; Start 10/04/16 at 23:30 Potassium Cl/ Dextrose/Lact Ringer's 1,000 ml @ 100 mls/hr Q10H IV Last administered on 10/10/16 04:05; Admin Dose 100 MLS/HR; Start 10/05/16 at 09:00 Piperacillin Sod/ Tazobactam Sod (Zosyn 3.375gm/ 100 ml (Pmx)) 100 ml @ 200 mls /hr Q6 IVPB Last administered on 10/10/16 12:01; Admin Dose 200 MLS/HR; Start 10/05/16 at 13:30 Metoprolol Tartrate (Lopressor) 2.5 mg Q6H PRN IV ELEVATED HEART RATE; Start at 16:30 Aspirin (Aspirin) 81 mg DAILY PO Last administered on 10/10/16 08:34; Admin Dose 81 MG; Start 10/06/16 at 09:00 Hydralazine HCl (Apresoline) 10 mg Q4H PRN IV ELEVATED BLOOD PRESSURE Last administered on 10/07/16 21:08; Admin Dose 10 MG; Start 10/06/16 at 06:30 Metoprolol Tartrate (Lopressor) 5 mg Q6 IV Last administered on 10/10/16 12:02 ; Admin Dose 5 MG; Start 10/06/16 at 12:00 Metoprolol Tartrate (Lopressor) 75 mg BID PO Last administered on 10/10/16 08: 34; Admin Dose 75 MG; Start 10/08/16 at 21:00 Digoxin (Digoxin) 0.125 mg DAILY@13 PO ; Start 10/09/16 at 09:00 Enoxaparin Sodium (Lovenox) 40 mg BID SC Last administered on 10/10/16 08:37; Admin Dose 40 MG; Start 10/08/16 at 21:00 Lisinopril (Zestril) 10 mg BID PO Last administered on 10/10/16 08:34; Admin Dose 10 MG; Start 10/09/16 at 21:00 VIC OLIVO MD Oct 10, 2016 12:51
[2016-10-10] MEDS ORDERED: AMLODIPINE 10 MG TAB PO ONE (13:00)
--- NOTE | 2016-10-10 13:46 | CONS ---
Date/Time of Note Date/Time of Note DATE: 10/10/16 TIME: 13:38 Assessment/Plan Assessment/Plan Additional Assessment/Plan 1.AF - rate controlled, no pauses and significant tachy . Will monitor closely. 2.Cardiomyopathy-EF 35% - con't to keep euvolemic - hep lock IV now - will diurese gently. 3.HTN- well controlled. Con't meds. 4.Positive troponin-downtrended - no CP noted. Con't Med Rx. 5.Pancreatitis-gallstone - hold off on hidration. 6.Transaminitis - GI follows. Consultation Date/Type/Reason Admit Date/Time Oct 04, 2016 at 18:09 Initial Consult Date Type of Consultation: Cardiology Referring Provider: REGI GOVEA MD 24 HR Interval Summary Free Text/Dictation NO acute change - pt feels better now. In good spirits - BP high - will Rx jointly with Dr. Coleen Sam. ROS: No fever, no chills, no nausea, no vomiting, no diarrhea/constipation No recent weight changes No chest pain, no PND, no orthopnea No dizziness, blurred vision No thirst, no heat or cold intolerance (better now) Exam/Review of Systems Vital Signs Vitals Vital Signs Date Time Temp Pulse Resp B/P Pulse Ox O2 Delivery O2 Flow Rate FiO2 10/10/16 12:15 62 10/10/16 12:11 97.9 64 199/94 97 10/08/16 21:00 Nasal Cannula 2.0 Intake and Output 10/09/16 10/09/16 10/10/16 15:00 23:00 07:00 Intake Total 600 ml 420 ml Balance 600 ml 420 ml Exam General: WN/WD/NAD, AOx 2-3 HEENT: Unicetric/atraumatic/EOMI (follow commands) NECK: JVD elevated, no thyromegaly Lymph: no lymphadenopathy HEART: IRregular with no S3, II/ systolic murmur at apex LUNGS: Coarse sounds ABD: soft, NT, ND, +BS : Intact Neuro: non focal SKIN: chronic changes EXT: trace edema Results Result Diagram: 10/09/16 0510 10/10/16 0535 Results 24 hrs Laboratory Tests Test 10/10/16 05:35 Alanine Aminotransferase (ALT/SGPT) 79 H Albumin 3.1 L Albumin/Globulin Ratio 0.86 Alkaline Phosphatase 152 H Anion Gap 16 Aspartate Amino Transf (AST/SGOT) 53 H Blood Urea Nitrogen 10 Calcium Level 8.4 Carbon Dioxide Level 25 Chloride Level 103 Creatinine 0.75 Direct Bilirubin 0.00 Globulin 3.60 H Glucose Level 99 Indirect Bilirubin 1.0 Potassium Level 4.0 Sodium Level 140 Total Bilirubin 1.0 Total Protein 6.7 Medications Medications Current Medications Acetaminophen (Tylenol Tab) 650 mg Q6H PRN PO PAIN AND OR ELEVATED TEMP; Start 10/04/16 at 21:30 Pantoprazole (Protonix Iv) 40 mg DAILY@06 IV Last administered on 10/10/16 05: 31; Admin Dose 40 MG; Start 10/05/16 at 06:00 Ondansetron HCl (Zofran Inj) 4 mg Q6H PRN IV NAUSEA AND/OR VOMITING; Start 10/04 at 21:30 Morphine Sulfate (morphine) 2 mg Q4H PRN IV PAIN LEVEL 8-10 Last administered on 10/06/16 09:50; Admin Dose 2 MG; Start 10/04/16 at 21:30 Diltiazem HCl (Cardizem Iv) 10 mg Q1H PRN IV ELEVATED HEART RATE Last administered on 10/07/16 16:27; Admin Dose 10 MG; Start 10/04/16 at 21:30 Metoprolol Tartrate (Lopressor) 2.5 mg Q6H PRN IV ELEVATED HEART RATE; Start at 16:30 Aspirin (Aspirin) 81 mg DAILY PO Last administered on 10/10/16 08:34; Admin Dose 81 MG; Start 10/06/16 at 09:00 Hydralazine HCl (Apresoline) 10 mg Q4H PRN IV ELEVATED BLOOD PRESSURE Last administered on 10/07/16 21:08; Admin Dose 10 MG; Start 10/06/16 at 06:30 Metoprolol Tartrate (Lopressor) 5 mg Q6 IV Last administered on 10/10/16 12:02 ; Admin Dose 5 MG; Start 10/06/16 at 12:00 Metoprolol Tartrate (Lopressor) 75 mg BID PO Last administered on 10/10/16 08: 34; Admin Dose 75 MG; Start 10/08/16 at 21:00 Digoxin (Digoxin) 0.125 mg DAILY@13 PO ; Start 10/09/16 at 09:00 Enoxaparin Sodium (Lovenox) 40 mg BID SC Last administered on 10/10/16 08:37; Admin Dose 40 MG; Start 10/08/16 at 21:00 Lisinopril (Zestril) 10 mg BID PO Last administered on 10/10/16 08:34; Admin Dose 10 MG; Start 10/09/16 at 21:00 Amlodipine Besylate (Norvasc) 10 mg DAILY PO ; Start 10/11/16 at 09:00 NORA CALHOUN MD Oct 10, 2016 13:46
[2016-10-10] MEDS: DIGOXIN 0.125 MG TAB PO SCH (13:48)
[2016-10-11] VITALS (12 sets, daily range): BP systolic 116–192; BP diastolic 60–85; PULSE 60–62; RESP 17–19
[2016-10-11] MEDS: PANTOPRAZOLE 40 MG INJ IV SCH (05:35)
[2016-10-11] MEDS: hydrALAzine 20 MG INJ IV PRN (05:35)
[2016-10-11] MEDS: ASPIRIN 81 MG TAB PO SCH (08:21)
[2016-10-11] MEDS: AMLODIPINE 10 MG TAB PO SCH (08:21)
[2016-10-11] MEDS: METOPROLOL 50 MG TAB PO SCH ×2 (08:21→21:00)
[2016-10-11] MEDS: LISINOPRIL 10 MG TAB PO SCH ×2 (08:22→21:01)
[2016-10-11] MEDS: ENOXAPARIN 40 MG/0.4 ML SYG SC SCH ×2 (08:26→21:09)
--- NOTE | 2016-10-11 11:35 | PN ---
Date/Time of Note Date/Time of Note DATE: 10/11/16 TIME: 11:33 Assessment/Plan VTE Prophylaxis VTE Prophylaxis Intervention: LMWH, SCD's Lines/Catheters IV Catheter Type (from Nrs): Saline Lock Urinary Cath still in place: No Assessment/Plan Assessment/Plan 1. Biilary sepsis due to Obstucted CBD stone s/p sphincterotomey with stone removal 2. Elevated troponin 3. Hypertension 4. Hyperlipidemia 5. Accelerated HTN Plan: S/p IV abx, BP stable,afebrile, no complaints Cardiology to decide if pt needs any work up for elevated troponin if no plan for any p rocedure from cardiology possible d/c home Subjective 24 Hr Interval Summary Free Text/Dictation wbc normal, afebrile, no complaitns Exam/Review of Systems Vital Signs Vitals Vital Signs Date Time Temp Pulse Resp B/P Pulse Ox O2 Delivery O2 Flow Rate FiO2 10/11/16 08:11 60 10/11/16 07:53 98.5 174/77 96 Room Air 10/11/16 04:48 19 10/08/16 21:00 2.0 Intake and Output 10/10/16 10/10/16 10/11/16 15:00 23:00 07:00 Intake Total 600 ml 300 ml Balance 600 ml 300 ml Exam General: WN/WD/NAD, AOx 2-3 HEENT: Unicetric/atraumatic/EOMI (follow commands) NECK: JVD elevated, no thyromegaly Lymph: no lymphadenopathy HEART: IRregular with no S3, II/ systolic murmur at apex LUNGS: Coarse sounds ABD: soft, NT, ND, +BS EXT: trace edema Results Result Diagram: 10/09/16 0510 10/10/16 0535 Medications Medications Current Medications Acetaminophen (Tylenol Tab) 650 mg Q6H PRN PO PAIN AND OR ELEVATED TEMP; Start 10/04/16 at 21:30 Pantoprazole (Protonix Iv) 40 mg DAILY@06 IV Last administered on 10/11/16t 05: 35; Admin Dose 40 MG; Start 10/05/16 at 06:00 Ondansetron HCl (Zofran Inj) 4 mg Q6H PRN IV NAUSEA AND/OR VOMITING; Start 10/04 at 21:30 Morphine Sulfate (morphine) 2 mg Q4H PRN IV PAIN LEVEL 8-10 Last administered on 10/06/16 09:50; Admin Dose 2 MG; Start 10/04/16 at 21:30 Diltiazem HCl (Cardizem Iv) 10 mg Q1H PRN IV ELEVATED HEART RATE Last administered on 10/07/16 16:27; Admin Dose 10 MG; Start 10/04/16 at 21:30 Metoprolol Tartrate (Lopressor) 2.5 mg Q6H PRN IV ELEVATED HEART RATE; Start at 16:30 Aspirin (Aspirin) 81 mg DAILY PO Last administered on 10/11/16 08:21; Admin Dose 81 MG; Start 10/06/16 at 09:00 Hydralazine HCl (Apresoline) 10 mg Q4H PRN IV ELEVATED BLOOD PRESSURE Last administered on 10/11/16 05:35; Admin Dose 10 MG; Start 10/06/16 at 06:30 Metoprolol Tartrate (Lopressor) 75 mg BID PO Last administered on 10/11/16 08: 21; Admin Dose 75 MG; Start 10/08/16 at 21:00 Digoxin (Digoxin) 0.125 mg DAILY@13 PO Last administered on 10/10/16 13:48; Admin Dose 0.125 MG; Start 10/09/16 at 09:00 Enoxaparin Sodium (Lovenox) 40 mg BID SC Last administered on 10/11/16 08:26; Admin Dose 40 MG; Start 10/08/16 at 21:00 Lisinopril (Zestril) 10 mg BID PO Last administered on 10/11/16 08:22; Admin Dose 10 MG; Start 10/09/16 at 21:00 Amlodipine Besylate (Norvasc) 10 mg DAILY PO Last administered on 10/11/16 08: 21; Admin Dose 10 MG; Start 10/11/16 at 09:00 VIC OLIVO MD Oct 11, 2016 11:35
--- NOTE | 2016-10-11 11:36 | PDOCDIS ---
Discharge Instructions CONDITION Patient Condition: Good HOME CARE INSTRUCTIONS: Special Diet: low fat,low salt diet ACTIVITY: Activity Restrictions: Slowly Increase Activity Rest between Activity Avoid heavy lifting Avoid Heavy Housework FOLLOW UP/APPOINTMENTS Appointments Follow up wiht her own PMD in 1-2 week after discharge. Follow up with GI as outpatient in 2-3 week. Follow up with Cardiology in 2- 3 weeks VIC OLIVO MD Oct 11, 2016 11:36
[2016-10-11] MEDS ORDERED: DIGO125T PO (11:38)
[2016-10-11] MEDS ORDERED: ASP81 PO (11:38)
[2016-10-11] MEDS ORDERED: AMLO-147 PO (11:38)
[2016-10-11] MEDS ORDERED: LISI10TA2 PO (11:38)
[2016-10-11] MEDS: DIGOXIN 0.125 MG TAB PO SCH (13:59)
--- NOTE | 2016-10-11 14:03 | CONS ---
Date/Time of Note Date/Time of Note DATE: 10/11/16 TIME: 14:01 Assessment/Plan Assessment/Plan Additional Assessment/Plan 1.AF - rate controlled, no pauses and significant tachy . Will monitor closely. BETTER RATE CONTROLLED. 2.Cardiomyopathy-EF 35% - con't to keep euvolemic - hep lock IV now - will diurese gently. BETTER FLUID STATUS NOW. 3.HTN- on high side - Con't meds RX as needed. 4.Positive troponin-downtrended - no CP noted. Con't Med Rx. 5.Pancreatitis-gallstone - hold off on hidration. 6.Transaminitis - GI follows. BETTER now. Consultation Date/Type/Reason Admit Date/Time Oct 04, 2016 at 18:09 Type of Consultation: Cardiology Referring Provider: REGI GOVEA MD 24 HR Interval Summary Free Text/Dictation Much better overall - con't to keep euvolemic. Mediations reviewed. ROS: No fever, no chills, no nausea, no vomiting, no diarrhea/constipation No recent weight changes No chest pain, no PND, no orthopnea No dizziness, blurred vision No thirst, no heat or cold intolerance Exam/Review of Systems Vital Signs Vitals Vital Signs Date Time Temp Pulse Resp B/P Pulse Ox O2 Delivery O2 Flow Rate FiO2 10/11/16 12:27 60 10/11/16 12:12 97.8 18 192/81 98 10/11/16 07:53 Room Air 10/08/16 21:00 2.0 Intake and Output 10/10/16 10/10/16 10/11/16 15:00 23:00 07:00 Intake Total 600 ml 300 ml Balance 600 ml 300 ml Exam General: WN/WD/NAD, AOx 2-3 Romansh HEENT: Unicetric/atraumatic/EOMI (follow commands) NECK: JVD elevated, no thyromegaly Lymph: no lymphadenopathy HEART: IRregular with no S3, II/ systolic murmur at apex LUNGS: Coarse sounds ABD: soft, NT, ND, +BS : Intact Neuro: non focal SKIN: chronic changes EXT: trace edema Results Result Diagram: 10/09/16 0510 10/10/16 0535 Medications Medications Current Medications Acetaminophen (Tylenol Tab) 650 mg Q6H PRN PO PAIN AND OR ELEVATED TEMP; Start 10/04/16 at 21:30 Pantoprazole (Protonix Iv) 40 mg DAILY@06 IV Last administered on 10/11/16 05: 35; Admin Dose 40 MG; Start 10/05/16 at 06:00 Ondansetron HCl (Zofran Inj) 4 mg Q6H PRN IV NAUSEA AND/OR VOMITING; Start 10/04 at 21:30 Morphine Sulfate (morphine) 2 mg Q4H PRN IV PAIN LEVEL 8-10 Last administered on 10/06/16 09:50; Admin Dose 2 MG; Start 10/04/16 at 21:30 Diltiazem HCl (Cardizem Iv) 10 mg Q1H PRN IV ELEVATED HEART RATE Last administered on 10/07/16 16:27; Admin Dose 10 MG; Start 10/04/16 at 21:30 Metoprolol Tartrate (Lopressor) 2.5 mg Q6H PRN IV ELEVATED HEART RATE; Start at 16:30 Aspirin (Aspirin) 81 mg DAILY PO Last administered on 10/11/16 08:21; Admin Dose 81 MG; Start 10/06/16 at 09:00 Hydralazine HCl (Apresoline) 10 mg Q4H PRN IV ELEVATED BLOOD PRESSURE Last administered on 10/11/16 05:35; Admin Dose 10 MG; Start 10/06/16 at 06:30 Metoprolol Tartrate (Lopressor) 75 mg BID PO Last administered on 10/11/16 08: 21; Admin Dose 75 MG; Start 10/08/16 at 21:00 Digoxin (Digoxin) 0.125 mg DAILY@13 PO Last administered on 10/11/16 13:59; Admin Dose 0.125 MG; Start 10/09/16 at 09:00 Enoxaparin Sodium (Lovenox) 40 mg BID SC Last administered on 10/11/16 08:26; Admin Dose 40 MG; Start 10/08/16 at 21:00 Lisinopril (Zestril) 10 mg BID PO Last administered on 10/11/16 08:22; Admin Dose 10 MG; Start 10/09/16 at 21:00 Amlodipine Besylate (Norvasc) 10 mg DAILY PO Last administered on 10/11/16 08: 21; Admin Dose 10 MG; Start 10/11/16 at 09:00 NORA CALHOUN MD Oct 11, 2016 14:03
[2016-10-11] MEDS: MINOXIDIL 2.5 MG TAB PO SCH (21:00)
[2016-10-12] VITALS (9 sets, daily range): BP systolic 105–166; BP diastolic 58–79; PULSE 60–85; RESP 16–20
[2016-10-12] MEDS: PANTOPRAZOLE 40 MG INJ IV SCH (05:26)
[2016-10-12 07:43] LABS: ALBUMIN 3.2 g/dl (3.3-4.9)
[2016-10-12 07:44] LABS: POTASSIUM 3.7 mmol/L (3.5-5.1)
[2016-10-12 07:46] LABS: BILIRUBIN,INDIRECT 0.8 mg/dl (0-1.1); BILIRUBIN,TOTAL 0.8 mg/dl (0.2-1.3); CREATININE 0.75 mg/dl (0.61-1.24)
[2016-10-12 07:47] LABS: ALBUMIN/GLOBULIN RATIO 0.86; CALCIUM 8.6 mg/dl (8.4-10.2); TOTAL PROTEIN 6.9 g/dl (6.1-8.1)
[2016-10-12] MEDS: AMLODIPINE 10 MG TAB PO SCH (09:12)
[2016-10-12] MEDS: LISINOPRIL 10 MG TAB PO SCH (09:12)
[2016-10-12] MEDS: METOPROLOL 50 MG TAB PO SCH (09:12)
[2016-10-12] MEDS: ENOXAPARIN 40 MG/0.4 ML SYG SC SCH (09:13)
[2016-10-12] MEDS: MINOXIDIL 2.5 MG TAB PO SCH (09:13)
[2016-10-12] MEDS: ASPIRIN 81 MG TAB PO SCH (09:13)
[2016-10-12] MEDS ORDERED: METO-429 PO (09:22)
[2016-10-12] MEDS ORDERED: LISI10TA2 PO (09:22)
[2016-10-12] MEDS ORDERED: MIN25 PO (09:22)
--- NOTE | 2016-10-12 11:19 | CONS ---
Date/Time of Note Date/Time of Note DATE: 10/12/16 TIME: 11:16 Assessment/Plan Assessment/Plan Chief Complaint/Hosp Course Imp: 1.AF-wellrate controlled 2.Cardiomyopathy-EF 35% 3.HTN-labile but overall improved BP 4.Positive troponin-downtrended 5.Pancreatitis-gallstone s/p ERCP 6.LFT's-still mildly elevated Recc: -Tele -serial ecg's -continue abx's -Continue BB/ACEI/PO digoxin and now minoxidil -Continue low dose lovenox with transition back to pradaxa at D/C -Follow volume status closely -outpatient f/u 2-3 weeks when BP stable Problems: Consultation Date/Type/Reason Admit Date/Time Oct 04, 2016 at 18:09 Initial Consult Date 10/06/2016 Type of Consultation: Cardiology Reason for Consultation AF/cardiomyopathy Referring Provider: REGI GOVEA MD Exam/Review of Systems Vital Signs Vitals Vital Signs Date Time Temp Pulse Resp B/P Pulse Ox O2 Delivery O2 Flow Rate FiO2 10/12/16 08:21 60 10/12/16 07:31 98.5 20 166/79 98 10/12/16 04:20 Nasal Cannula 2.0 Intake and Output 10/11/16 10/11/16 10/12/16 15:00 23:00 07:00 Intake Total 420 ml 400 ml Balance 420 ml 400 ml Exam Review of Systems: CONSTITUTIONAL: No fevers, chills. PULMONARY: No sob CARDIOVASCULAR: No chest pain/palpitations GASTROINTESTINAL: No nausea/vomiting. GENITOURINARY: No hematuria/dysuria. MUSCULOSKELETAL: No myagias/arthalgias. PSYCHIATRIC: The patient denies depression. NEUROLOGIC: No weakness Constitutional: alert Psych: no complaints Head: normocephalic ENMT: mucosa pink and moist Neck: jvd (9 cm water), supple Respiratory: clear to auscultation Cardiovascular: irregular rhythm Gastrointestinal: non-tender, soft Extremities: edema (none) Neurological: other (No focal deficits) Results Result Diagram: 10/09/16 0510 10/12/16 0615 Results 24 hrs Laboratory Tests Test 10/12/16 06:15 Alanine Aminotransferase (ALT/SGPT) 96 H Albumin 3.2 L Albumin/Globulin Ratio 0.86 Alkaline Phosphatase 154 H Anion Gap 17 H Aspartate Amino Transf (AST/SGOT) 78 H Blood Urea Nitrogen 11 Calcium Level 8.6 Carbon Dioxide Level 24 Chloride Level 104 Creatinine 0.75 Direct Bilirubin 0.00 Globulin 3.70 H Glucose Level 87 Indirect Bilirubin 0.8 Potassium Level 3.7 Sodium Level 141 Total Bilirubin 0.8 Total Protein 6.9 Medications Medications Current Medications Acetaminophen (Tylenol Tab) 650 mg Q6H PRN PO PAIN AND OR ELEVATED TEMP; Start 10/04/16 at 21:30 Pantoprazole (Protonix Iv) 40 mg DAILY@06 IV Last administered on 10/12/16 05: 26; Admin Dose 40 MG; Start 10/05/16 at 06:00 Ondansetron HCl (Zofran Inj) 4 mg Q6H PRN IV NAUSEA AND/OR VOMITING; Start 10/04 at 21:30 Morphine Sulfate (morphine) 2 mg Q4H PRN IV PAIN LEVEL 8-10 Last administered on 10/06/16 09:50; Admin Dose 2 MG; Start 10/04/16 at 21:30 Diltiazem HCl (Cardizem Iv) 10 mg Q1H PRN IV ELEVATED HEART RATE Last administered on 10/07/16 16:27; Admin Dose 10 MG; Start 10/04/16 at 21:30 Metoprolol Tartrate (Lopressor) 2.5 mg Q6H PRN IV ELEVATED HEART RATE; Start at 16:30 Aspirin (Aspirin) 81 mg DAILY PO Last administered on 10/12/16 09:13; Admin Dose 81 MG; Start 10/06/16 at 09:00 Hydralazine HCl (Apresoline) 10 mg Q4H PRN IV ELEVATED BLOOD PRESSURE Last administered on 10/11/16 05:35; Admin Dose 10 MG; Start 10/06/16 at 06:30 Metoprolol Tartrate (Lopressor) 75 mg BID PO Last administered on 10/12/16 09: 12; Admin Dose 75 MG; Start 10/08/16 at 21:00 Digoxin (Digoxin) 0.125 mg DAILY@13 PO Last administered on 10/11/16 13:59; Admin Dose 0.125 MG; Start 10/09/16 at 09:00 Enoxaparin Sodium (Lovenox) 40 mg BID SC Last administered on 10/12/16 09:13; Admin Dose 40 MG; Start 10/08/16 at 21:00 Amlodipine Besylate (Norvasc) 10 mg DAILY PO Last administered on 10/12/16 09: 12; Admin Dose 10 MG; Start 10/11/16 at 09:00 Minoxidil (Loniten) 2.5 mg BID PO Last administered on 10/12/16 09:13; Admin Dose 2.5 MG; Start 10/11/16 at 21:00 Lisinopril (Zestril) 20 mg BID PO ; Start 10/12/16 at 21:00 ISRAEL TRAN Oct 12, 2016 11:19
[2016-10-12] MEDS: DIGOXIN 0.125 MG TAB PO SCH (12:35)
[2016-10-12] MEDS ORDERED: LISINOPRIL 10 MG TAB PO SCH (21:00)
[2016-10-12] MEDS ORDERED: LISINOPRIL 20 MG TAB PO SCH (21:00)
--- NOTE | 2016-10-13 17:44 | QN ---
Documentation Comment [id number] REGI GOVEA MD Oct 13, 2016 17:44
--- NOTE | 2016-10-13 21:48 | DS ---
DATE OF ADMISSION: 10/04/2016 DATE OF DISCHARGE: 10/12/2016 HOSPITAL COURSE: The patient was admitted with abdominal pain, noted to have common bile duct stone , abnormal LFTs, sepsis. Was seen by Dr. Pace in consultation, underwent ERCP, sphincterectomy. The patient also has atrial fibrillation, was seen by Dr. Tello and Dr. Stephens in consultation. T he patient's hematocrit 34.1. The patient's abnormal LFTs were stable. The patient is eating and d rinking okay and ambulating. Was cleared by the e business consultant to be discharged home. DISCHARGE DIAGNOSES: Include: 1. Common bile duct stones, status post ERCP and sphincterectomy. 2. The patient has atrial fibrillation, however, rate controlled. 3. Cardiomyopathy, ejection fraction 35%. 4. Hypertension. 5. Positive troponin downward trend. 6. Pancreatitis. 7. Abnormal LFT. 8. The patient's other diagnoses include biliary sepsis. 9. Dyslipidemia. DISCHARGE MEDICATIONS: To continue on: 1. Amlodipine. 2. Aspirin. 3. Digoxin. 4. Lisinopril. 5. Metoprolol. 6. Minoxidil. 7. Continue ascorbic acid. 8. Pradaxa. 9. ____. 10. Omeprazole. 11. Vitamin B complex. FOLLOWUP: The patient to follow with Dr. Tello and Dr. Stephens as an outpatient and PCP. DIET: Cardiac diet. Dictated By: REGI GOVEA MD BS/NTS Conf#: [id number] DID#: [id number]
== END 2016-10-12 13:25 | disposition home or self-care (01) | DRG 871 ==
LOC: E/R 13:52 → TEL 18:09
PROVIDERS: ADMIT Internal Medicine Nephrology; ATTEND Internal Medicine Nephrology
PROC: 0FC98ZZ Extirpation of Matter from Common Bile Duct, Via Natural or Artificial Opening Endoscopic (ICD-10-PCS; principal; 2016-10-07 12:00)
DX: A41.9 Sepsis, unspecified organism (principal); K72.00 Acute and subacute hepatic failure without coma; I48.91 Unspecified atrial fibrillation; I42.9 Cardiomyopathy, unspecified; E86.0 Dehydration; K85.10 Biliary acute pancreatitis without necrosis or infection; I10 Essential (primary) hypertension; E78.5 Hyperlipidemia, unspecified; K80.50 Calculus of bile duct without cholangitis or cholecystitis without obstruction; Z95.0 Presence of cardiac pacemaker
CPT/HCPCS: 36415; 71010; 74176; 74330; 76705; 80048; 80053; 80061; 81003; 83605; 83690; 84443; 84484; 85025; 85610; 85730; 87040; 87086; 93005; 93306; 96374; 96375; C9113; J0330; J0360; J1650; J2250; J2270; J2543; J2710; J3010; J3480; J7030; J7040; J7042; Q9967

== ENCOUNTER 2019-05-07 17:42 | Inpatient (IN) | payer OTHER, MEDICAID ==
[~2019-05-07] VITALS: Ht 165.1 cm; Wt 71.7 kg
[~2019-05-07 17:42] MED LIST changes: -AMIO200T46 PO; +AMLO-147 PO; -ASA PO; +ASCO500C7 PO; +ASPI-831 PO; +AZIT250T13 PO; +DABI150C PO; +DIGO125T PO; -DILT120C79 PO; +FER325 PO; +LAS20 PO; +LEVO500T48 PO; +LISI-471 PO; +LISI10TA2 PO; -LOSA25TA47 PO; +METO-335 PO; +METO-429 PO; +MINO2.5T16 PO; -MULT1CAP20 PO; +OMEP40CA6 PO; +SPIR25TA PO; +VITA1TAB69 PO
[2019-05-07] MEDS ORDERED: SOD CHLORIDE 0.9% 2,250 ML IV ONE (18:00)
[2019-05-07] MEDS ORDERED: AZITHROMYCIN 500MG/NS (PMX) 250 ML IV STA (19:16)
[2019-05-07] MEDS ORDERED: CEFTRIAXONE 1 GM/50 ML (PMX) 50 ML IVPB STA (19:16)
[2019-05-07] MEDS ORDERED: ACETAMINOPHEN 650 MG SUPP PR ONE (19:30)
[2019-05-07] MEDS ORDERED: ONDANSETRON 4 MG INJ IV PRN (21:30)
[2019-05-07] MEDS ORDERED: ACETAMINOPHEN 325 MG TAB PO PRN (21:30)
--- NOTE | 2019-05-07 21:45 | ERD ---
ER Documentation Chief Complaint Chief Complaint Fall, weakness at home X 45 minutes ago, no KO. HPI 89-year-old male brought in by ambulance from home after he had a ground-level fall due to bilateral lower extremity weakness. He denies hitting his head. No loss of consciousness. Patient is complaining of generalized weakness. He denies any abdominal pain, chest pain, shortness of breath, recent illness, headache, dizziness, nausea, vomiting, diarrhea. He states he is very weak in his bilateral lower extremities but denies any back pain or back injury. Per family, no recent illness. Per EMS, he was hypoxic in the field and required supplemental oxygen. Otherwise vitals were stable. ROS All systems reviewed and are negative except as per history of present illness. Medications Home Meds Active Scripts Minoxidil* (Lonitin*) 2.5 Mg Tab, 2.5 MG PO BID for 30 Days, TAB Prov:REGI GOVEA MD 10/12/16 Metoprolol Tartrate* (Lopressor*) 50 Mg Tab, 75 MG PO BID for 28 Days, #60 TAB Prov:REGI GOVEA MD 10/12/16 Lisinopril* (Lisinopril*) 10 Mg Tablet, 20 MG PO BID for 28 Days, #60 TAB Prov:REGI GOVEA MD 10/12/16 Amlodipine Besylate* (Amlodipine Besylate*) 10 Mg Tablet, 10 MG PO DAILY, #90 TAB Prov:VIC OLIVO MD 10/11/16 Aspirin (Aspirin) 81 Mg Chew, 81 MG PO DAILY, #100 TAB Prov:VIC OLIVO MD 10/11/16 Lisinopril* (Lisinopril*) 10 Mg Tablet, 10 MG PO BID, #60 TAB Prov:VIC OLIVO MD 10/11/16 Digoxin* (Digitek*) 125 Mcg Tablet, 0.125 MG PO DAILY@13, #30 TAB Prov:VIC OLIVO MD 10/11/16 Reported Medications Vitamin B Complex (B Complete) 1 Each Tablet, 1 EACH PO DAILY, TAB 10/04/16 Ascorbic Acid* (Vitamin C*) 500 Mg Capsule.sa, 500 MG PO DAILY, CAP 10/04/16 Ferrous Sulfate* (Ferrous Sulfate*) 325 Mg Tabec, 325 MG PO DAILY, TAB 10/04/16 Dabigatran Etexilate Mesylate* (Pradaxa*) 150 Mg Capsule, 150 MG PO BID, CAP 10/04/16 Omeprazole* (Omeprazole*) 40 Mg Capsule.dr, 40 MG PO DAILY, #30 CAP 10/04/16 Metoprolol Succinate* (Toprol XL*) 25 Mg Tab.sr.24h, 25 MG PO DAILY, #30 TAB 10/04/16 Allergies Allergies: Coded Allergies: No Known Allergies (Verified Allergy, Unknown, 10/04/16) PMhx/Soc History of Surgery: Yes (Pacemaker) Anesthesia Reaction: No Hx Neurological Disorder: No Hx Respiratory Disorders: No Hx Cardiac Disorders: Yes (htn,bradycardia) Hx Psychiatric Problems: No Hx Miscellaneous Medical Probl: No Hx Alcohol Use: No Hx Substance Use: No Hx Tobacco Use: No FmHx Family History: No diabetes Physical Exam Vitals Vital Signs Date Temp Pulse Resp B/P (MAP) Pulse Ox O2 O2 Flow FiO2 Time Delivery Rate 05/07/19 99.9 19:41 05/07/19 100.4 111 20 146/71 99 Nasal 2.0 19:22 (96) Cannula 05/07/19 102.8 128 18 121/60 98 18:00 (80) Physical Exam Const: No acute distress, nontoxic, warm to touch Head: Atraumatic Eyes: Normal Conjunctiva, PERRLA, EOMI ENT: Dry mucous membranes. Normal External Ears, Nose and Mouth. Neck: Full range of motion. No meningismus. No C-spine tenderness Resp: Diminished breath sounds at the bases, no wheezing or crackles Cardio: Regular rate and rhythm, no murmurs. 2+ distal pulses Abd: Soft, non tender, non distended. Normal bowel sounds Skin: No petechiae or rashes Back: No midline or flank tenderness Ext: No cyanosis, or edema Neur: Awake and alert, normal speech, following some commands but not others. No obvious facial droop. Strength 5 out of 5 in bilateral upper extremities. Able to move bilateral lower extremities but not putting much effort into exam. Psych: Normal Mood and Affect Result Diagram: 05/07/19180905/07/191809 Results 24 hrs Laboratory Tests Test 05/07/19 17:54 05/07/19 18:10 05/07/19 18:12 05/07/19 19:38 Bedside Glucose 135 mg/dL White Blood Count 4.9 10^3/ul Red Blood Count 4.23 10^6/ul Hemoglobin 12.4 g/dl Hematocrit 37.5 % Mean Corpuscular 88.7 fl Volume Mean Corpuscular 29.3 pg Hemoglobin Mean Corpuscular 33.1 g/dl Hemoglobin Concent Red Cell Distribution 13.1 % Width Platelet Count 166 10^3/UL Mean Platelet Volume 11.4 fl Immature Granulocytes 0.400 % % Neutrophils % 81.8 % Lymphocytes % 8.7 % Monocytes % 8.5 % Eosinophils % 0.2 % Basophils % 0.4 % Nucleated Red Blood 0.0 /100WBC Cells % Immature Granulocytes 0.020 10^3/ul # Neutrophils # 4.0 10^3/ul Lymphocytes # 0.4 10^3/ul Monocytes # 0.4 10^3/ul Eosinophils # 0.0 10^3/ul Basophils # 0.0 10^3/ul Nucleated Red Blood 0.0 10^3/ul Cells # Prothrombin Time 17.3 Sec Prothrombin Time Ratio 1.4 INR International 1.40 Normalized Ratio Activated 39.8 Sec Partial Thromboplast Time Sodium Level 138 mmol/L Potassium Level 4.0 mmol/L Chloride Level 107 mmol/L Carbon Dioxide Level 23 mmol/L Anion Gap 8 Blood Urea Nitrogen 26 mg/dl Creatinine 1.21 mg/dl Est Glomerular Filtrat mL/min Rate mL/min Glucose Level 128 mg/dl Calcium Level 9.1 mg/dl Total Bilirubin 1.1 mg/dl Direct Bilirubin 0.00 mg/dl Indirect Bilirubin 1.1 mg/dl Aspartate Amino 27 IU/L Transf (AST/SGOT) Alanine 23 IU/L Aminotransferase (ALT/ SGPT) Alkaline Phosphatase 65 IU/L Troponin I 0.013 ng/ml Total Protein 7.3 g/dl Albumin 3.8 g/dl Globulin 3.50 g/dl Albumin/Globulin Ratio 1.08 POC Venous Lactate 1.3 mmol/L Lactic Acid Level 1.0 mmol/L Current Medications Medications Dose Sig/Digna Start Time Status Last (Trade) Ordered Route PRN Stop Time Admin Dose Reason Admin Sodium 2,250 ml @ BOLUS X1 05/07/19 DC 05/07/19 Chloride 1,125 mls/hr ONCE IV 18:00 05/07/19 18:21 19:59 Ceftriaxone 50 ml @ ONCE STAT 8/4/19 DC 05/07/19 Sodium 100 mls/hr IVPB 19:16 05/07/19 19:41 19:45 Azithromycin 250 ml @ ONCE STAT 05/07/19 DC 05/07/19 250 mls/hr IV 19:16 05/07/19 20:08 20:15 650 mg ONCE ONCE 05/07/19 DC 05/07/19 Acetaminophen WV 19:30 05/07/19 19:41 (Tylenol 19:31 Supp) Ondansetron 4 mg BRIDGE ORDER 05/07/19 HCl (Zofran PRN IV 21:30 05/08/19 Inj) NAUSEA/VOMITI 21:29 NG 650 mg ER BRIDGE 05/07/19 Acetaminophen PRN PO 21:30 05/08/19 (Tylenol .MILD PAIN 21:29 Tab) 1-3 OR TEMP Procedures/MDM EMERGENT LABS AND DIAGNOSTIC STUDIES: Lab Results above were reviewed and interpreted by me. CBC: no clinically significant anemia or evidence of infection CMP: Mild BUN elevation, likely prerenal azotemia due to dehydration. No evidence of clinically significant electrolyte abnormality, acidosis, renal failure, hypoglycemia, liver disease, or biliary obstruction Troponin within normal limits, not indicative of cardiac ischemia Lactate within normal limits without evidence of sepsis or tissue hypoperfusion UA: Pending 12-lead EKG was interpreted by Brandon Moon MD: Sinus tachycardia with first-degree AV block and frequent PVCs at 120 bpm. Normal axis Normal intervals No acute ST or T wave changes suggestive of acute ischemia or STEMI. Radiology Results as interpreted by Radiology below were reviewed by Tammy nguyen MD: Chest x-ray shows evidence of left sided pneumonia CT head shows no acute abnormalities Initial Nursing notes reviewed. Previous Medical Records requested via the Electronic Health Record. EMERGENCY DEPARTMENT COURSE / MEDICAL DECISION MAKING: Admit MDM: Patient presented with generalized weakness and appeared to be somewhat confused on arrival. He was warm to touch. Vitals were notable for fever and hypoxia on room air. This improved with supplemental oxygenation. Cooling measures were initiated. Sepsis work-up initiated although there was no clear source of infection. Work-up did show evidence of pneumonia. No evidence of acute stroke or intracranial hemorrhage. No evidence of serious arrhythmia or acute coronary syndrome. Patient's infectious symptoms have not stabilized, and the patient is at risk of rapid decompensation. The patient will be admitted for careful hydration, antibiotic therapy, and infectious source control. Severe Sepsis criteria: Infectious source: Pneumonia End organ damage indicated by: Acute Resp Failure (sat < 92% w/o oxygen) Sepsis Management: Time of recognition of severe sepsis: 1800 Within 3 hours of recognition: Blood cultures x 2 before broad-spectrum antibiotics: Yes 30 ml/kg NS bolus Completed Initial lactate normal Repeat lactate normal Septic Shock Assessment: Any lactic acid > 4.0 No Persistent hypotension (SBP < 90 or 40 mmHg drop, MAP < 65) despite 30 mL/kg IV fluid bolus No Critical Care Time: 35 minutes Treatments/Evaluations: Close monitoring and treatment of unstable vital signs, cardiorespiratory, and neurologic status, while maintaining tight balance of fluid, respiratory, and cardiac interventions. This includes the administration of emergency fluid management while maintaining close respiratory support as well as the provision of immediate and broad-spectrum antibiotic therapy, while performing a simultaneous assessment for possible sources in order to direct targeted therapy. This time includes discussing the case with the patient and the patients family.This time also includes the consideration for invasive and chemical support to prevent cardiopulmonary collapse. This time does not include all procedures stated elsewhere in this record. This time also includes reviewing old records, labs and radiological studies. This time includes examining and reexamining the patient. Additionally, this time also includes arranging care with admitting and consulting physicians. Patient will be admitted to [facility] unit by Dr. Govea. Hemodynamically stable. Departure Diagnosis: Primary Impression: Sepsis Sepsis type: sepsis due to unspecified organism Sepsis acute organ dysfunction status: with acute organ dysfunction Severe sepsis acute organ dysfunction type: acute respiratory failure Acute respiratory failure type: with hypoxia Severe sepsis shock status: without septic shock Qualified Codes: A41.9 - Sepsis, unspecified organism; R65.20 - Severe sepsis without septic shock; J96.01 - Acute respiratory failure with hypoxia Additional Impressions: Community acquired pneumonia Laterality: left Lung location: lower lobe of lung Qualified Codes: J18.1 - Lobar pneumonia, unspecified organism Generalized weakness Fall with no significant injury Encounter type: initial encounter Qualified Codes: W19.XXXA - Unspecified fall, initial encounter Condition: Fair SULEMAN MOON MD May 07, 2019 21:45
[2019-05-07 22:54] VITALS: BP 108/55; PULSE 61; RESP 18
[2019-05-07 23:24] VITALS: Ht 165.1 cm; Wt 71.7 kg
[2019-05-08] MEDS ORDERED: ACETAMINOPHEN 325 MG TAB PO PRN (00:30)
[2019-05-08] MEDS: SOD CHLORIDE 0.9% 1,000 ML IV SCH (00:46)
[2019-05-08] MEDS: ALBUTEROL/IPRATROPIUM (NEB) 3 ML AMP HHN SCH ×4 (02:01→19:20)
[2019-05-08 02:46] VITALS: BP 115/58; PULSE 58; RESP 18
[2019-05-08] MEDS: PANTOPRAZOLE (EC) 40 MG TAB PO SCH (06:13)
[2019-05-08 07:39] VITALS: BP 134/61; PULSE 59; RESP 16
[2019-05-08] MEDS: FERROUS SULFATE (EC) 325 MG TAB PO SCH (09:16)
[2019-05-08] MEDS: VITAMIN B COMPLEX/VIT C CAP PO SCH (09:16)
[2019-05-08] MEDS: LISINOPRIL 10 MG TAB PO SCH ×2 (09:16→20:11)
[2019-05-08] MEDS: ASPIRIN 81 MG TAB PO SCH (09:17)
[2019-05-08] MEDS: DABIGATRAN 150 MG CAP PO SCH ×2 (09:17→20:11)
[2019-05-08] MEDS: METOPROLOL (XL) 25 MG TAB PO SCH (09:17)
[2019-05-08] MEDS: ASCORBIC ACID 500 MG TAB PO SCH (09:17)
[2019-05-08] MEDS: AMLODIPINE 10 MG TAB PO SCH (09:17)
[2019-05-08] MEDS: DIGOXIN 0.125 MG TAB PO SCH (13:16)
--- NOTE | 2019-05-08 13:59 | QN ---
Documentation Comment Pt seen and examined BERTO RAMOS MD May 08, 2019 13:59
[2019-05-08 14:22] VITALS: BP 106/73; PULSE 92; RESP 16
--- NOTE | 2019-05-08 15:22 | HP ---
DATE OF ADMISSION: 05/07/2019 HISTORY OF PRESENT ILLNESS: This 89-year-old male with past medical history of hypertension, hyperlipidemia, atrial fibrillation, history of pacemaker placement and history of sphincterotomy and stone removal in 2017, presented to the Emergency Department after being brought by the family due to increased weakness at home. I took the history, partially from the patient and partially from the daughter. According to the daughter, the patient had been feeling weak for the last 2 to 3 days while he was going to the bathroom at night, he was feeling weak on the knees and he fell on the ground. He had a ground level fall. He denied any loss of consciousness. According to the daughter, he had been feeling weak for the last few days. Denies any chest pain, any shortness of breath, any abdominal pain, nausea, vomiting, diarrhea. Denies any urinary symptoms. As per EMS, he was hypoxic in the field and required supplemental oxygen. On admission, the patient had a fever of 102.8. Heart rate was 128, respirations 18, blood pressure 121/60, saturating 98%. BUN of 26, creatinine 1.21. White count was 4.9, hemoglobin 12.4, platelet count of 166, LFTs within normal limit. Total bilirubin 1.1. There was no UA done and the patient had a CT of the head that showed atrophy, micro ischemic changes, atherosclerosis. No intracranial hemorrhage. Possible small bilateral frontal hygromas and also patient had a chest x-ray that showed patchy infiltrate within the left lower lobe, query pneumonia and the patient was given IV fluids with Rocephin and azithromycin and given NS bolus and was admitted for further management. PAST MEDICAL HISTORY: 1. Hypertension. 2. Hyperlipidemia. 3. History of pacemaker placement. ALLERGIES: NEGATIVE. PAST MEDICAL HISTORY: None. PAST SURGICAL HISTORY: Significant for cholecystectomy. Patient has also had a left pacemaker placement. SOCIAL HISTORY: No history of smoking, alcohol or any drug use. Currently lives with his daughter. MEDICATIONS: Taking at home: 1. Pradaxa 150 b.i.d. 2. Iron sulfate 325. 3. Amlodipine 10. 4. Digoxin 0.125. 5. Lisinopril 10 6. Metoprolol 25 mg. 7. Aspirin 81. 8. Prilosec 20. 9. Vitamin C 500. 10. Vitamin B complex. REVIEW OF SYSTEMS: NEUROLOGIC: Patient is awake, alert, oriented x3. Denies any abdominal pain, nausea, vomiting, diarrhea, headache, blurry vision. Denies any shortness of breath. Denies any dysuria, urgency, frequency, has been feeling weak for past few days. Gen febrile upto 102 in ER VITAL SIGNS: Temperature 98.2, blood pressure 106/73, pulse 92, respiratory rate 16, satting 97%. GENERAL: The patient is alert, awake, in no acute distress. NECK: JVP +. CHEST: Fair air movement throughout. HEART: Irregularly irregular, I/ systolic murmur, nondisplaced PMI. ABDOMEN: Positive bowel sounds, soft. EXTREMITIES: No significant pitting edema, 1+ pulses bilateral posterior tibial. LABORATORY DATA: White count of 4.9, hemoglobin 12.4, platelet count 166, BUN of 26, creatinine 1.21. LFTs within normal limit. Troponin of 0.013. INR of 1.40. There was no UA done. CT of the head showed no intracranial hemorrhage, but possible small bilateral subdural hygromas. Chest x-ray, possible left lower lobe infiltrate. EKG showed frequent PVCs, left bundle branch block. ASSESSMENT AND PLAN: This is an 89-year-old male. 1. Complaint generalized weakness could be secondary to fever, rule out cardiac etiology. 2. Sepsis with fevers, likely secondary to pneumonia; however, UA has not been checked. Blood cultures have been pending. 3. History of hypertension, currently normotensive. 4. Hyperlipidemia. 5. History of cholecystectomy. The patient is status post obstructed CBD, status post arthrotomy with stone removal. 6. History of pacemaker placement. 7 Afib on pradaxa PLAN: At this period of time, the patient is admitted to med/surg as per the admitting doctor, will continue the patient on gentle fluids as patient is on IV antibiotics with Rocephin and azithromycin. ID will be consulted. Cardiology will be consulted. We will also get an echo, questionable patient will need a pacemaker evaluation. We will follow up with the cultures. The rest of the treatment depends of the patient's hospitalization course. Dictated By: BERTO RAMOS RB/CASSIDY Conf#: [id number] DID#: [id number] CC: REGI GOVEA MD;*EndCC* MTDD
--- NOTE | 2019-05-08 16:05 | CONS ---
DATE OF ADMISSION: 05/07/2019 DATE OF CONSULTATION: 05/08/2019 TYPE OF CONSULTATION: Infectious disease. REASON FOR CONSULTATION: Antibiotic management. HISTORY OF PRESENT ILLNESS: Edenilson King is an 89-year-old male, who was brought to [facility] emergency room on the 4th after a fall with weakness at home. The patient had a ground level fall due to bilateral lower extremity weakness. He did not lose consciousness. He has generalized weakn ess. He denies shortness of breath. He is very weak in his lower extremities. Denies any back pain or back injury. Per EMS, he was hypoxic in the field, required supplemental oxygen. On admission, the patient was noted to have a history of hypertension and bradycardia and has a pacemaker. FAMILY HISTORY: Noncontributory. SOCIAL HISTORY: He does not smoke, drink or abuse drugs. ALLERGIES: NONE TO PENICILLIN, SULFA OR FOODS. MEDICATIONS: Per chart. REVIEW OF SYSTEMS: As per HPI. PHYSICAL EXAMINATION: GENERAL: He was warm to the touch. His T-max was 102.8, pulse of 128, respirations of 18, blood pre ssure 120/60. SKIN: Without generalized rash. HEENT: Within normal limits. NECK: Supple. LYMPH NODES: None palpable. CHEST: Decreased breath sounds at the bases. HEART: Without murmur or gallop. ABDOMEN: Soft, nontender, without organosplenomegaly or masses. EXTREMITIES: Without cyanosis, clubbing, or edema. RECTAL AND GENITAL: Deferred. NEUROLOGIC: No focal neurological abnormalities. On the , his white count was 4.9 with 82% neutrophils, H and H of 12.4 and 37.5, platelet count 16 6. BUN and creatinine 26/1.21, glucose of 128. The patient was thought to have pneumonia. Chest x-ray shows evidence of left-sided pneumonia. CT s can of the head shows no acute abnormalities and the patient was started on ceftriaxone and azithromy august. White count today is 4.7. Chest x-ray showed patchy infiltrate within the left lower lobe. We will continue him on therapy for community-acquired pneumonia. I will dictate my findings to Dr. Zeeshan crooks. I want to thank her for asking us to see this geraldine gentleman in consultation. Dictated By: LUISA RAYGOZA MD, JD/CASSIDY Conf#: [id number] [facility]#: [id number] CC: REGI GOVEA MD;*End*
[2019-05-08] MEDS: CEFTRIAXONE 1 GM/50 ML (PMX) 50 ML IVPB SCH (17:07)
[2019-05-08] MEDS: AZITHROMYCIN 500 MG in SOD CHLORIDE 0.9% 250 ML IVPB SCH (17:47)
--- NOTE | 2019-05-08 18:27 | CONS ---
DATE OF ADMISSION: 05/07/2019 DATE OF CONSULTATION: 05/08/2019 TYPE OF CONSULTATION: Cardiology. REASON FOR CONSULTATION: Recurrent falls, rule out cardiac etiology as well as atrial fibrillation. REQUESTING PHYSICIAN: Temi Ramos MD HISTORY OF PRESENT ILLNESS: Mr. Tomas is a very pleasant 89-year-old Nauruan speaking male with history of hypertension, dyslipidemia, atrial fibrillation on Pradaxa, permanent pacemaker, prior cholecystectomy, who presents from home status post what is described as mechanical fall due to generalized weakness. The patient's daughter states the patient has been feeling faint and weak for the past 2 to 3 days. He went to go to the bathroom all night and try to go to bathroom and while standing, he felt his legs just gave out and fell to the ground. The patient denied a prodrome of chest pain, dizziness. Upon arrival, temperature of 102.8, blood pressure 141/60, pulse 128, respiratory rate 18, satting 98%. The patient's labs revealed a white blood cell count of 4.9, hemoglobin 12.4, platelet count of 166, sodium 138, potassium 4.0, creatinine of 1.21, BUN 26, troponin negative, AST 27, ALT 23, INR of 1.4. 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 The patient's electrocardiogram revealed what is most likely atrial flutter with variable block 120 with left bundle branch block versus sinus rhythm with frequent PACs. The patient is admitted to the floor and since admitted to floor, has had stable blood pressure and heart rates and has had 1 negative troponin. PAST MEDICAL HISTORY: As above in HPI. MEDICATIONS CURRENTLY IN HOSPITAL: 1. Azithromycin. 2. Ceftriaxone. 3. Digoxin 125 mcg daily. 4. Norvasc 10 mg daily. 5. Vitamin C. 6. Aspirin. 7. Pradaxa. 8. Lisinopril 10 mg b.i.d. 9. Toprol-XL 25 mg daily. 10. Vitamin B complex. 11. Protonix. 12. DuoNeb. 13. IV fluid hydration. 14. Tylenol. ALLERGIES: NO KNOWN DRUG ALLERGIES. SOCIAL HISTORY: No current tobacco, EtOH or illicit drug use. FAMILY HISTORY: No history of sudden cardiac or early CAD. REVIEW OF SYSTEMS: As above in HPI. CONSTITUTIONAL: Positive fevers, chills. PULMONARY: No current shortness of breath. CARDIOVASCULAR: Atrial fibrillation/atrial flutter initially with rapid ventricular response,well controlled now. GASTROINTESTINAL: No vomiting. GENITOURINARY: No hematuria. MUSCULOSKELETAL: Degenerative joint disease. PSYCHIATRIC: No documented psych history. NEUROLOGIC: No documented history of CVA. PHYSICAL EXAMINATION VITAL SIGNS: Temperature 98.2, blood pressure 106/73, pulse 92, respiratory rate 16, satting 97%. GENERAL: The patient is alert, awake, in no acute distress. NECK: JVP approximately is 8 cm of water. CHEST: Fair air movement throughout. HEART: Irregularly irregular, I/ systolic murmur, nondisplaced PMI. ABDOMEN: Positive bowel sounds, soft. EXTREMITIES: No significant pitting edema, 1+ pulses bilateral posterior tibial. LABORATORIES: Most recently from today, sodium 144, potassium 3.9, creatinine 0.9, BUN 18. White blood cell count 4.7, hemoglobin 11.6, platelet count 146. INR 1.4. IMAGING STUDIES: As above in HPI. No further imaging studies for my review at this time. ELECTROCARDIOGRAM: As above in HPI. No further electrocardiograms for my review at this time. IMPRESSION: 1. Atrial fibrillation/atrial flutter, currently rate controlled. 2. Abnormal electrocardiogram, assess for acute coronary syndrome. 3. History of permanent pacemaker. No signs of dysfunction at this time. 4. Hypertension, well controlled. 5. Status post fall, sounds mechanical by description due to leg weakness. 6. Fevers. 7. Probable pneumonia. 8. Hypercoagulable state on Pradaxa, most likely dehydration. 9. Anemia. RECOMMENDATIONS: 1. At this time, we would continue the patient's IV fluid hydration. 2. Complete the patient's rule out myocardial infarction to ensure the patient's symptoms were not due to an acute coronary syndrome such as acute myocardial infarction. 3. Continue the patient's aspirin for prophylaxis against cardiovascular events and the patient's Pradaxa for now, but if the patient has any bleeding complications, we would likely discontinue the patient's aspirin as patient is already on Pradaxa and therefore likely just cause increased bleeding risk at this time. 4. Check a 2D echo for this patient's ejection fraction, wall motion, rule out any major valve abnormalities. 5. Continue the patient's Norvasc at this time, lisinopril and beta vanessa following blood pressure and heart rate closely. 6. Continue the patient's antibiotics and continue to follow the patient's exam and chest x-rays and continue patient's IV fluid hydration for dehydration. 7. Additionally check a fasting lipid panel for general risk stratification and initiate lipid-lowering medication as necessary and check a TSH to assess the patient's current thyroid state and its possible contribution to cardiac arrhythmias. Thank you for allowing me to take part in the care of this patient. I will continue to follow him along very closely with you with further recommendations will be made as the patient progresses through his inpatient hospital clinical course. Dictated By: ISRAEL SUAREZ/CASSIDY Conf#: [id number] DID#: [id number] CC: REGI GOVEA MD; TEMI RAMOS;*EndCC* MTDD
[2019-05-08 21:02] VITALS: BP 123/58; PULSE 58; RESP 20
[2019-05-09] MEDS: SOD CHLORIDE 0.9% 1,000 ML IV SCH (01:00)
[2019-05-09] MEDS: ALBUTEROL/IPRATROPIUM (NEB) 3 ML AMP HHN SCH ×4 (01:28→21:14)
[2019-05-09 01:56] VITALS: BP 128/68; RESP 18
[2019-05-09] MEDS: PANTOPRAZOLE (EC) 40 MG TAB PO SCH (05:27)
[2019-05-09 08:00] VITALS: BP 148/63; PULSE 89; RESP 16
[2019-05-09] MEDS: AZITHROMYCIN 500 MG in SOD CHLORIDE 0.9% 250 ML IVPB SCH (09:18)
[2019-05-09] MEDS: FERROUS SULFATE (EC) 325 MG TAB PO SCH (09:19)
[2019-05-09] MEDS: METOPROLOL (XL) 25 MG TAB PO SCH (09:19)
[2019-05-09] MEDS: ASCORBIC ACID 500 MG TAB PO SCH (09:19)
[2019-05-09] MEDS: ASPIRIN 81 MG TAB PO SCH (09:19)
[2019-05-09] MEDS: LISINOPRIL 10 MG TAB PO SCH ×2 (09:20→20:44)
[2019-05-09] MEDS: DABIGATRAN 150 MG CAP PO SCH ×2 (09:20→20:43)
[2019-05-09] MEDS: VITAMIN B COMPLEX/VIT C CAP PO SCH (09:20)
[2019-05-09] MEDS: AMLODIPINE 10 MG TAB PO SCH (09:20)
[2019-05-09] MEDS: DIGOXIN 0.125 MG TAB PO SCH (12:23)
--- NOTE | 2019-05-09 12:37 | CONS ---
Consult Date/Type/Reason Admit Date/Time May 07, 2019 at 21:22 Initial Consult Date Date/Time of Note DATE: 05/09/19 TIME: 12:34 Subjective No acute events - pt comfortable overall - in good fluid status - feels better today - no CP now. ROS: No fever, no chills, no nausea, no vomiting, no diarrhea/constipation - mild SOB Objective Vitals Vital Signs Date Temp Pulse Resp B/P (MAP) Pulse Ox O2 O2 Flow FiO2 Time Delivery Rate 05/09/19 98.7 89 16 148/63 94 08:00 (91) 05/09/19 2.0 07:24 05/09/19 Nasal 07:24 Cannula Intake and Output 05/08/19 05/08/19 05/09/19 1515:00 23:00 07:00 IntakeIntake Total 200 ml 1100 ml BalanceBalance 200 ml 1100 ml Exam General: WN/WD/NAD, AOx 2-3 HEENT: Unicetric/atraumatic/EOMI ( follow commands) NECK: JVD elevated, no thyromegaly Lymph: no lymphadenopathy HEART: regular with no S3, II/ systolic murmur at apex, PMI L LUNGS: Coarse sounds ABD: soft, NT, ND, +BS : Intact Neuro: non focal SKIN: chronic changes EXT: trace edema Results/Medications Result Diagram: 05/09/19 0702 05/09/19 0702 Results 24 hrs Laboratory Tests Test 05/08/19 17:56 05/09/19 00:46 05/09/19 07:02 05/09/19 07:03 Troponin I < 0.012 0.012 0.013 White Blood Count 4.5 L Red Blood Count 4.53 L Hemoglobin 13.1 L Hematocrit 41.1 L Mean Corpuscular Volume 90.7 Mean Corpuscular 28.9 L Hemoglobin Mean Corpuscular 31.9 L Hemoglobin Concent Red Cell Distribution 13.5 Width Platelet Count 151 Mean Platelet Volume 11.3 H Immature Granulocytes % 0.200 Neutrophils % 57.9 Lymphocytes % 31.2 Monocytes % 8.8 Eosinophils % 1.5 Basophils % 0.4 Nucleated Red Blood 0.0 Cells % Immature Granulocytes # 0.010 Neutrophils # 2.6 Lymphocytes # 1.4 Monocytes # 0.4 Eosinophils # 0.1 Basophils # 0.0 Nucleated Red Blood 0.0 Cells # Sodium Level 143 Potassium Level 4.0 Chloride Level 111 H Carbon Dioxide Level 23 Anion Gap 9 Blood Urea Nitrogen 15 Creatinine 0.77 Est Glomerular Filtrat Rate mL/min Glucose Level 93 Calcium Level 8.7 Triglycerides Level 77 Cholesterol Level 98 L LDL Cholesterol, 56 Calculated HDL Cholesterol 27 L Cholesterol/HDL Ratio 3.6 Phosphorus Level 3.6 Magnesium Level 2.1 Home Meds Active Scripts Amlodipine Besylate* (Amlodipine Besylate*) 10 Mg Tablet, 10 MG PO DAILY, #90 TAB Prov:VIC OLIVO MD 10/11/16 Aspirin (Aspirin) 81 Mg Chew, 81 MG PO DAILY, #100 TAB Prov:VIC OLIVO MD 10/11/16 Lisinopril* (Lisinopril*) 10 Mg Tablet, 10 MG PO BID, #60 TAB Prov:VIC OLIVO MD 10/11/16 Digoxin* (Digitek*) 125 Mcg Tablet, 0.125 MG PO DAILY@13, #30 TAB Prov:VIC OLIVO MD 10/11/16 Reported Medications Vitamin B Complex (B Complete) 1 Each Tablet, 1 EACH PO DAILY, TAB 10/04/16 Ascorbic Acid* (Vitamin C*) 500 Mg Capsule.sa, 500 MG PO DAILY, CAP 10/04/16 Ferrous Sulfate* (Ferrous Sulfate*) 325 Mg Tabec, 325 MG PO DAILY, TAB 10/04/16 Dabigatran Etexilate Mesylate* (Pradaxa*) 150 Mg Capsule, 150 MG PO BID, CAP 10/04/16 Omeprazole* (Omeprazole*) 40 Mg Capsule.dr, 40 MG PO DAILY, #30 CAP 10/04/16 Metoprolol Succinate* (Toprol XL*) 25 Mg Tab.sr.24h, 25 MG PO DAILY, #30 TAB 10/04/16 Discontinued Scripts Minoxidil* (Lonitin*) 2.5 Mg Tab, 2.5 MG PO BID for 30 Days, TAB Prov:REGI GOVEA MD 10/12/16 Metoprolol Tartrate* (Lopressor*) 50 Mg Tab, 75 MG PO BID for 28 Days, #60 TAB Prov:REGI GOVEA MD 10/12/16 Lisinopril* (Lisinopril*) 10 Mg Tablet, 20 MG PO BID for 28 Days, #60 TAB Prov:REGI GOVEA MD 10/12/16 Medications Current Medications Amlodipine Besylate (Norvasc) 10 mg DAILY PO Last administered on 05/09/19 09:20; Admin Dose 10 MG; Start 05/08/19 at 09:00 Ascorbic Acid (Vitamin C) 500 mg DAILY PO Last administered on 05/09/19 09:19; Admin Dose 500 MG; Start 05/08/19 at 09:00 Aspirin (Aspirin) 81 mg DAILY PO Last administered on 05/09/19 09:19; Admin Dose 81 MG; Start 05/08/19 at 09:00 Dabigatran (PRADaxa) 150 mg BID PO Last administered on 05/09/19 09:20; Admin Dose 150 MG; Start 05/08/19 at 09:00 Digoxin (Digoxin) 0.125 mg DAILY@13 PO Last administered on 05/09/19 12:23; Admin Dose 0.125 MG; Start 05/08/19 at 13:00 Ferrous Sulfate (Ferrous Sulfate (Ec)) 325 mg DAILY PO Last administered on 05/09/19 09:19; Admin Dose 325 MG; Start 05/08/19 at 09:00 Lisinopril (Zestril) 10 mg BID PO Last administered on 05/09/19 09:20; Admin Dose 10 MG; Start 05/08/19 at 09:00 Metoprolol Succinate (Toprol Xl) 25 mg DAILY PO Last administered on 05/09/19 09:19; Admin Dose 25 MG; Start 05/08/19 at 09:00 Pantoprazole (Protonix Tab) 40 mg DAILY@06 PO Last administered on 05/09/19 05:27; Admin Dose 40 MG; Start 05/08/19 at 06:00 Vitamin B Complex/ Vitamin C (Berocca) 1 cap DAILY PO Last administered on 05/09/19 09:20; Admin Dose 1 CAP; Start 05/08/19 at 09:00 Acetaminophen (Tylenol Tab) 650 mg Q6H PRN PO MILD PAIN(1-3)OR ELEVATED TEMP Last administered on 05/08/19 02:23; Admin Dose 650 MG; Start 05/08/19 at 00:30 Albuterol/ Ipratropium (Duoneb) 3 ml Q6H RESP THERAPY HHN Last administered on 05/09/19 07:24; Admin Dose 3 ML; Start 05/08/19 at 02:00 Sodium Chloride 1,000 ml @ 20 mls/hr Q24H IV Last administered on 05/08/19 00:46; Admin Dose 20 MLS/HR; Start 05/08/19 at 01:00 Ceftriaxone Sodium 50 ml @ 100 mls/hr Q24H IVPB Last administered on 05/08/19at 17:07; Admin Dose 100 MLS/HR; Start 05/08/19 at 18:00 Azithromycin 500 mg/Sodium Chloride 250 ml @ 250 mls/hr DAILY IVPB Last administered on 05/09/19 09:18; Admin Dose 250 MLS/HR; Start 05/08/19 at 18:30 Assessment/Plan Hospital Course (Demo Recall) 1. Atrial fibrillation/atrial flutter, currently rate controlled - HR maintained - pt on anti-coagulation. 2. Abnormal electrocardiogram, assess for acute coronary syndrome r/o GA - no intervention planned. 3. History of permanent pacemaker. No signs of dysfunction at this time. With good fxn presumed. 4. Hypertension, well controlled. 5. Status post fall, sounds mechanical by description due to leg weakness. 6. Fevers. 7. Probable pneumonia- rx with anti-Bx nonw. 8. Hypercoagulable state on Pradaxa, most likely dehydration. Con't gentle hydration. 9. Anemia- H/h normal at 13.1 NORA CALHOUN MD May 09, 2019 12:36
[2019-05-09 14:00] VITALS: BP 109/73; PULSE 89; RESP 16
--- NOTE | 2019-05-09 14:48 | CONS ---
Assessment/Plan Assessment/Plan Hospital Course (Demo Recall) No acute events overnight patient is awake looks comfortable denies pain no nausea vomiting diarrhea no fevers overnight. WBC 4.5 platelets 151 no shift no bands BUN 15 creatinine 0.77 Blood cultures remain negative Chest x-ray 2 days ago revealed patchy infiltrate in the left lower lobe CT of the brain showed no intracranial ab abnormalities acute Allergies no Antimicrobials patient is on Zithromax and Rocephin Physical examination well-developed fragile elderly man who is awake in no distress. Head atraumatic normocephalic neck is supple chest rise symmetrical breath sounds diminished bases heart S1-S2 abdomen soft bowel sounds present extremities without cyanosis Assessment: #1 sepsis on admission with a high fevers #2 pneumonia #3 coronary artery disease status post permanent pacemaker #4 atrial fibrillation #5 anemia Plan: patient remains stable, on appropriate antibiotic regimen will follow chest x-ray in a.m. Consultation Date/Type/Reason Admit Date/Time May 07, 2019 at 21:22 Initial Consult Date Reason for Consultation id Date/Time of Note DATE: 05/09/19 TIME: 14:48 Exam/Review of Systems Exam Vitals Vital Signs Date Temp Pulse Resp B/P (MAP) Pulse Ox O2 O2 Flow FiO2 Time Delivery Rate 05/09/19 98.3 89 16 109/73 95 14:00 (85) 05/09/19 2.0 07:24 05/09/19 Nasal 07:24 Cannula Intake and Output 05/08/19 05/08/19 05/09/19 1515:00 23:00 07:00 IntakeIntake Total 200 ml 1100 ml BalanceBalance 200 ml 1100 ml Results Result Diagram: 05/09/19 0702 05/09/19 0702 Results 24hrs Laboratory Tests Test 05/08/19 17:56 05/09/19 00:46 05/09/19 07:02 05/09/19 07:03 Troponin I < 0.012 0.012 0.013 White Blood Count 4.5 L Red Blood Count 4.53 L Hemoglobin 13.1 L Hematocrit 41.1 L Mean Corpuscular Volume 90.7 Mean Corpuscular 28.9 L Hemoglobin Mean Corpuscular 31.9 L Hemoglobin Concent Red Cell Distribution 13.5 Width Platelet Count 151 Mean Platelet Volume 11.3 H Immature Granulocytes % 0.200 Neutrophils % 57.9 Lymphocytes % 31.2 Monocytes % 8.8 Eosinophils % 1.5 Basophils % 0.4 Nucleated Red Blood 0.0 Cells % Immature Granulocytes # 0.010 Neutrophils # 2.6 Lymphocytes # 1.4 Monocytes # 0.4 Eosinophils # 0.1 Basophils # 0.0 Nucleated Red Blood 0.0 Cells # Sodium Level 143 Potassium Level 4.0 Chloride Level 111 H Carbon Dioxide Level 23 Anion Gap 9 Blood Urea Nitrogen 15 Creatinine 0.77 Est Glomerular Filtrat Rate mL/min Glucose Level 93 Calcium Level 8.7 Triglycerides Level 77 Cholesterol Level 98 L LDL Cholesterol, 56 Calculated HDL Cholesterol 27 L Cholesterol/HDL Ratio 3.6 Phosphorus Level 3.6 Magnesium Level 2.1 Medications Medication Current Medications Amlodipine Besylate (Norvasc) 10 mg DAILY PO Last administered on 05/09/19 09:20; Admin Dose 10 MG; Start 05/08/19 at 09:00 Ascorbic Acid (Vitamin C) 500 mg DAILY PO Last administered on 05/09/19 09:19; Admin Dose 500 MG; Start 05/08/19 at 09:00 Aspirin (Aspirin) 81 mg DAILY PO Last administered on 05/09/19 09:19; Admin Dose 81 MG; Start 05/08/19 at 09:00 Dabigatran (PRADaxa) 150 mg BID PO Last administered on 05/09/19 09:20; Admin Dose 150 MG; Start 05/08/19 at 09:00 Digoxin (Digoxin) 0.125 mg DAILY@13 PO Last administered on 05/09/19 12:23; Admin Dose 0.125 MG; Start 05/08/19 at 13:00 Ferrous Sulfate (Ferrous Sulfate (Ec)) 325 mg DAILY PO Last administered on 05/09/19 09:19; Admin Dose 325 MG; Start 05/08/19 at 09:00 Lisinopril (Zestril) 10 mg BID PO Last administered on 05/09/19 09:20; Admin Dose 10 MG; Start 05/08/19 at 09:00 Metoprolol Succinate (Toprol Xl) 25 mg DAILY PO Last administered on 05/09/19 09:19; Admin Dose 25 MG; Start 05/08/19 at 09:00 Pantoprazole (Protonix Tab) 40 mg DAILY@06 PO Last administered on 05/09/19 05:27; Admin Dose 40 MG; Start 05/08/19 at 06:00 Vitamin B Complex/ Vitamin C (Berocca) 1 cap DAILY PO Last administered on 05/09/19 09:20; Admin Dose 1 CAP; Start 05/08/19 at 09:00 Acetaminophen (Tylenol Tab) 650 mg Q6H PRN PO MILD PAIN(1-3)OR ELEVATED TEMP Last administered on 05/08/19 02:23; Admin Dose 650 MG; Start 05/08/19 at 00:30 Albuterol/ Ipratropium (Duoneb) 3 ml Q6H RESP THERAPY HHN Last administered on 05/09/19 14:45; Admin Dose 3 ML; Start 05/08/19 at 02:00 Sodium Chloride 1,000 ml @ 20 mls/hr Q24H IV Last administered on 05/08/19 00:46; Admin Dose 20 MLS/HR; Start 05/08/19 at 01:00 Ceftriaxone Sodium 50 ml @ 100 mls/hr Q24H IVPB Last administered on 05/08/19 17:07; Admin Dose 100 MLS/HR; Start 05/08/19 at 18:00 Azithromycin 500 mg/Sodium Chloride 250 ml @ 250 mls/hr DAILY IVPB Last administered on 05/09/19 09:18; Admin Dose 250 MLS/HR; Start 05/08/19 at 18:30 MARY LITTLEJOHN NP May 09, 2019 14:48
--- NOTE | 2019-05-09 15:01 | PN ---
Date/Time of Note Date/Time of Note DATE: 05/09/19 TIME: 14:56 Assessment/Plan VTE Prophylaxis Risk score (from [facility] [place])>0 risk: 8 SCD applied (from [facility] [place]): Yes Pharmacological prophylaxis: NA/contraindicated Pharm contraindication: low risk/ambulating Lines/Catheters IV Catheter Type (from [facility]): Peripheral IV Assessment/Plan Assessment/Plan his is an 89-year-old male. 1. Complaint generalized weakness could be secondary to fever, rule out cardiac etiology. fevers 102 in ER 2. Sepsis with fevers, likely secondary to pneumonia; however, UA has not been checked. Blood cultures have been pending. Chest Xray left pneumonoia 3. History of hypertension, currently normotensive. 4. Hyperlipidemia. 5. History of cholecystectomy. The patient is status post obstructed CBD, status post arthrotomy with stone removal. 6. History of pacemaker placement. with no dysfunction 7 Atrial fibrillation/atrial flutter, currently rate controlled. 8 . Abnormal electrocardiogram, assess for acute coronary syndrome. Plan - bld cx neg so far - dc iv fluid - repeat chest xray - cw rocephim/azithro - fu ID recs - cw ASA/DIGOXIN/PRADAZA/lisnopril/MTP - gi/dvt PROPHLAXSIS dc planning Result Diagram: 05/09/19 0702 05/09/19 0702 Results 24hrs Laboratory Tests Test 05/08/19 17:56 05/09/19 00:46 05/09/19 07:02 05/09/19 07:03 Troponin I < 0.012 0.012 0.013 White Blood Count 4.5 L Red Blood Count 4.53 L Hemoglobin 13.1 L Hematocrit 41.1 L Mean Corpuscular Volume 90.7 Mean Corpuscular 28.9 L Hemoglobin Mean Corpuscular 31.9 L Hemoglobin Concent Red Cell Distribution 13.5 Width Platelet Count 151 Mean Platelet Volume 11.3 H Immature Granulocytes % 0.200 Neutrophils % 57.9 Lymphocytes % 31.2 Monocytes % 8.8 Eosinophils % 1.5 Basophils % 0.4 Nucleated Red Blood 0.0 Cells % Immature Granulocytes # 0.010 Neutrophils # 2.6 Lymphocytes # 1.4 Monocytes # 0.4 Eosinophils # 0.1 Basophils # 0.0 Nucleated Red Blood 0.0 Cells # Sodium Level 143 Potassium Level 4.0 Chloride Level 111 H Carbon Dioxide Level 23 Anion Gap 9 Blood Urea Nitrogen 15 Creatinine 0.77 Est Glomerular Filtrat Rate mL/min Glucose Level 93 Calcium Level 8.7 Triglycerides Level 77 Cholesterol Level 98 L LDL Cholesterol, 56 Calculated HDL Cholesterol 27 L Cholesterol/HDL Ratio 3.6 Phosphorus Level 3.6 Magnesium Level 2.1 Subjective 24 Hr Interval Summary Free Text/Dictation feels better today no fevers Exam/Review of Systems Exam Vitals Vital Signs Date Temp Pulse Resp B/P (MAP) Pulse Ox O2 O2 Flow FiO2 Time Delivery Rate 05/09/19 84 18 93 21 14:48 05/09/19 98.3 109/73 14:00 (85) 05/09/19 2.0 07:24 05/09/19 Nasal 07:24 Cannula Intake and Output 05/08/19 05/08/19 05/09/19 1515:00 23:00 07:00 IntakeIntake Total 200 ml 1100 ml BalanceBalance 200 ml 1100 ml Exam GENERAL: The patient is alert, awake, in no acute distress. NECK: JVP approximately is 8 cm of water. CHEST: Fair air movement throughout. HEART: Irregularly irregular, I/ systolic murmur, nondisplaced PMI. ABDOMEN: Positive bowel sounds, soft. EXTREMITIES: No significant pitting edema, 1+ pulses bilateral posterior tibial . Results Results 24hrs Laboratory Tests Test 05/08/19 17:56 05/09/19 00:46 05/09/19 07:02 05/09/19 07:03 Troponin I < 0.012 0.012 0.013 White Blood Count 4.5 L Red Blood Count 4.53 L Hemoglobin 13.1 L Hematocrit 41.1 L Mean Corpuscular Volume 90.7 Mean Corpuscular 28.9 L Hemoglobin Mean Corpuscular 31.9 L Hemoglobin Concent Red Cell Distribution 13.5 Width Platelet Count 151 Mean Platelet Volume 11.3 H Immature Granulocytes % 0.200 Neutrophils % 57.9 Lymphocytes % 31.2 Monocytes % 8.8 Eosinophils % 1.5 Basophils % 0.4 Nucleated Red Blood 0.0 Cells % Immature Granulocytes # 0.010 Neutrophils # 2.6 Lymphocytes # 1.4 Monocytes # 0.4 Eosinophils # 0.1 Basophils # 0.0 Nucleated Red Blood 0.0 Cells # Sodium Level 143 Potassium Level 4.0 Chloride Level 111 H Carbon Dioxide Level 23 Anion Gap 9 Blood Urea Nitrogen 15 Creatinine 0.77 Est Glomerular Filtrat Rate mL/min Glucose Level 93 Calcium Level 8.7 Triglycerides Level 77 Cholesterol Level 98 L LDL Cholesterol, 56 Calculated HDL Cholesterol 27 L Cholesterol/HDL Ratio 3.6 Phosphorus Level 3.6 Magnesium Level 2.1 Medications Medication Current Medications Amlodipine Besylate (Norvasc) 10 mg DAILY PO Last administered on 05/09/19 09:20; Admin Dose 10 MG; Start 05/08/19 at 09:00 Ascorbic Acid (Vitamin C) 500 mg DAILY PO Last administered on 05/09/19 09:19; Admin Dose 500 MG; Start 05/08/19 at 09:00 Aspirin (Aspirin) 81 mg DAILY PO Last administered on 05/09/19 09:; Admin Dose 81 MG; Start 05/08/19 at 09:00 Dabigatran (PRADaxa) 150 mg BID PO Last administered on 05/09/19 09:20; Admin Dose 150 MG; Start 05/08/19 at 09:00 Digoxin (Digoxin) 0.125 mg DAILY@13 PO Last administered on 05/09/19 12:23; Admin Dose 0.125 MG; Start 05/08/19 at 13:00 Ferrous Sulfate (Ferrous Sulfate (Ec)) 325 mg DAILY PO Last administered on 05/09/19 09:19; Admin Dose 325 MG; Start 05/08/19 at 09:00 Lisinopril (Zestril) 10 mg BID PO Last administered on 05/09/19 09:20; Admin Dose 10 MG; Start 05/08/19 at 09:00 Metoprolol Succinate (Toprol Xl) 25 mg DAILY PO Last administered on 05/09/19 09:19; Admin Dose 25 MG; Start 05/08/19 at 09:00 Pantoprazole (Protonix Tab) 40 mg DAILY@06 PO Last administered on 05/09/19 05:27; Admin Dose 40 MG; Start 05/08/19 at 06:00 Vitamin B Complex/ Vitamin C (Berocca) 1 cap DAILY PO Last administered on 05/09/19 09:20; Admin Dose 1 CAP; Start 05/08/19 at 09:00 Acetaminophen (Tylenol Tab) 650 mg Q6H PRN PO MILD PAIN(1-3)OR ELEVATED TEMP Last administered on 05/08/19 02:23; Admin Dose 650 MG; Start 05/08/19 at 00:30 Albuterol/ Ipratropium (Duoneb) 3 ml Q6H RESP THERAPY HHN Last administered on 05/09/19 14:45; Admin Dose 3 ML; Start 05/08/19 at 02:00 Sodium Chloride 1,000 ml @ 20 mls/hr Q24H IV Last administered on 05/08/19 00:46; Admin Dose 20 MLS/HR; Start 05/08/19 at 01:00 Ceftriaxone Sodium 50 ml @ 100 mls/hr Q24H IVPB Last administered on 05/08/19 17:07; Admin Dose 100 MLS/HR; Start 05/08/19 at 18:00 Azithromycin 500 mg/Sodium Chloride 250 ml @ 250 mls/hr DAILY IVPB Last administered on 05/09/19 09:18; Admin Dose 250 MLS/HR; Start 05/08/19 at 18:30 BERTO RAMOS MD May 09, 2019 15:01
--- NOTE | 2019-05-09 15:04 | RADRPT ---
Vent Rate: 102 bpm RR Interval: 586 msec HI Interval: [id number] msec QRS Duration: 147 msec QT Interval: 363 msec QTC Interval: 474 msec P-R-T [place]: [id number] - -21 - 185 degrees Atrial fibrillation...V-rate 78-135, irreg A-activity Left bundle branch block...QRSd>120, broad/notched R ST elevation secondary to IVCD...Multiple VCG criteria Electronically Signed By: Saji Starr
--- NOTE | 2019-05-09 15:31 | RADRPT ---
Echocardiogram Report Patient Name: Genia CASEnt ID: [id number] : 1930 (89y 3m)Study Date: 05/09/2019 11:35:40 AM Gender: MAccession #: [id number] Tech: Karin Causey [facility] [place] Location: [facility] Ref.Physician: ISRAEL STEPHENS Height(Cm): BSA: Weight(Kg): Quality: Technically Difficult StudyOrder Physician: ISRAEL STEPHENS Account #: Procedures: Echocardiographic Report: Transthoracic echocardiogram with complete 2D, M-Mode, and doppler examination. Indications: Atrial Flutter. Measurements: 2D/M Mode Doppler Measurement Value Normal Range Measurement Value Normal Range LVIDd 2D 4.8 [ 4.2 - 5.8 ] cm AV Peak Yordan 1.1 [ 100.0 - 170.0 ] cm/sec LVIDs 2D 3.3 [ 2.5 - 4.0 ] cm AV Peak PG 5.0 [ 2.0 - 9.0 ] mmHg LVPWd 2D 1.4 [ 0.6 - 1.0 ] cm LVOT Peak Yordan 0.7 [ 70.0 - 110.0 ] cm/sec IVSd 2D 1.6 [ 0.6 - 1.0 ] cm LVOT Peak PG 2.0 [ 2.0 - 6.0 ] mmHg AoR Diam 2D 3.2 [ 2.6 - 3.4 ] cm TR Peak Yordan 2.3 [ 100.0 - 280.0 ] cm/sec EDV 2D 106.0 [ 62.0 - 150.0 ] ml TR Peak PG 21.0 mmHg ESV 2D 44.1 [ 21.0 - 61.0 ] ml RVSP 24.0 [ 10.0 - 36.0 ] mmHg EF 2D 58.4 [ 52.0 - 72.0 ] percent RA Pressure 3.0 mmHg LA Dimen 2D 3.6 [ 3.0 - 4.0 ] cm Findings: Left Ventricle: Normal left ventricular systolic function. Normal left ventricular cavity size. Moderate concentric left ventricular hypertrophy. Moderate global left ventricular systolic dysfunction. Ejection fraction is visually estimated at 35-40 %. Tissue Doppler/Mitral Doppler indices are indeterminate in this study due to the presence of atrial flutter. Right Ventricle: Normal right ventricular size. Normal right ventricular systolic function. Left Atrium: The left atrium is normal in size. Right Atrium: The right atrium is normal in size. Mitral Valve: Normal appearance and function of the mitral valve with trace physiologic regurgitation. Aortic Valve: No significant aortic stenosis or insufficiency. Aortic cusps appear mildly calcified. Tricuspid Valve: Normal appearance and function of the tricuspid valve with trace physiologic regurgitation. Normal right ventricular systolic pressure. The estimated Peak RVSP is 24 mmHg. Pulmonic Valve: Normal pulmonic valve appearance. Pericardium: Normal pericardium with no significant pericardial effusion. Aorta: Normal aortic root. IVC: Normal size and normal respiratory collapse consistent with normal right atrial pressure. Conclusions: Normal left ventricular systolic function. Normal left ventricular cavity size. Moderate concentric left ventricular hypertrophy. Moderate global left ventricular systolic dysfunction. Ejection fraction is visually estimated at 35-40 %. Tissue Doppler/Mitral Doppler indices are indeterminate in this study due to the presence of atrial flutter. Normal appearance and function of the mitral valve with trace physiologic regurgitation. Normal appearance and function of the tricuspid valve with trace physiologic regurgitation. Normal right ventricular systolic pressure. The estimated Peak RVSP is 24 mmHg. Electronically Signed By: Israel Stephens 2019-05-09 15:30:48 PDT
[2019-05-09] MEDS: CEFTRIAXONE 1 GM/50 ML (PMX) 50 ML IVPB SCH (18:30)
[2019-05-09 20:00] VITALS: BP 156/68; PULSE 93; RESP 18
[2019-05-10] MEDS: ALBUTEROL/IPRATROPIUM (NEB) 3 ML AMP HHN SCH ×4 (01:59→19:49)
[2019-05-10 02:00] VITALS: BP 144/80; PULSE 93; RESP 18
[2019-05-10] MEDS: PANTOPRAZOLE (EC) 40 MG TAB PO SCH (06:04)
[2019-05-10] MEDS: LISINOPRIL 10 MG TAB PO SCH (08:29)
[2019-05-10] MEDS: METOPROLOL (XL) 25 MG TAB PO SCH (08:29)
[2019-05-10] MEDS: DABIGATRAN 150 MG CAP PO SCH ×2 (08:30→21:26)
[2019-05-10] MEDS: ASCORBIC ACID 500 MG TAB PO SCH (08:30)
[2019-05-10] MEDS: ASPIRIN 81 MG TAB PO SCH (08:30)
[2019-05-10] MEDS: VITAMIN B COMPLEX/VIT C CAP PO SCH (08:30)
[2019-05-10] MEDS: AMLODIPINE 10 MG TAB PO SCH (08:30)
[2019-05-10] MEDS: FERROUS SULFATE (EC) 325 MG TAB PO SCH (08:30)
[2019-05-10 08:32] VITALS: BP 153/76; PULSE 115; RESP 16
[2019-05-10] MEDS: AZITHROMYCIN 500 MG in SOD CHLORIDE 0.9% 250 ML IVPB SCH (09:24)
--- NOTE | 2019-05-10 11:21 | CONS ---
Assessment/Plan Assessment/Plan Hospital Course (Demo Recall) No acute events overnight Blood cultures remain negative Chest x-ray 05/09/19 Stable persistent patchy infiltrate/pneumonia in the left lower lung CT of the brain showed no intracranial ab abnormalities acute Allergies no Antimicrobials patient is on Zithromax and Rocephin Physical examination well-developed fragile elderly man who is awake in no distress. Head atraumatic normocephalic neck is supple chest rise symmetrical breath sounds diminished bases heart S1-S2 abdomen soft bowel sounds present extremities without cyanosis Assessment: #1 sepsis on admission with a high fevers #2 pneumonia #3 coronary artery disease status post permanent pacemaker #4 atrial fibrillation #5 anemia Plan: patient remains stable, on appropriate antibiotic regimen Consultation Date/Type/Reason Admit Date/Time May 07, 2019 at 21:22 Initial Consult Date Type of Consult id Date/Time of Note DATE: 05/10/19 TIME: 11:20 Exam/Review of Systems Exam Vitals Vital Signs Date Temp Pulse Resp B/P (MAP) Pulse Ox O2 O2 Flow FiO2 Time Delivery Rate 05/10/19 97.9 115 16 153/76 95 08:32 (101) 05/10/19 Room Air 02:00 05/10/19 21 01:59 05/09/19 2.0 07:24 Intake and Output 05/09/19 05/09/19 05/10/19 1515:00 23:00 07:00 IntakeIntake Total 450 ml 930 ml BalanceBalance 450 ml 930 ml Results Result Diagram: 05/09/19 0702 05/09/19 0702 Medications Medication Current Medications Amlodipine Besylate (Norvasc) 10 mg DAILY PO Last administered on 05/10/19at 08:30; Admin Dose 10 MG; Start 05/08/19 at 09:00 Ascorbic Acid (Vitamin C) 500 mg DAILY PO Last administered on 05/10/19at 08:30; Admin Dose 500 MG; Start 05/08/19 at 09:00 Aspirin (Aspirin) 81 mg DAILY PO Last administered on 05/10/19at 08:30; Admin Dose 81 MG; Start 05/08/19 at 09:00 Dabigatran (PRADaxa) 150 mg BID PO Last administered on 05/10/19at 08:30; Admin Dose 150 MG; Start 05/08/19 at 09:00 Digoxin (Digoxin) 0.125 mg DAILY@13 PO Last administered on 05/09/19 12:23; Admin Dose 0.125 MG; Start 05/08/19 at 13:00 Ferrous Sulfate (Ferrous Sulfate (Ec)) 325 mg DAILY PO Last administered on 05/10/19 08:30; Admin Dose 325 MG; Start 05/08/19 at 09:00 Lisinopril (Zestril) 10 mg BID PO Last administered on 05/10/19 08:29; Admin Dose 10 MG; Start 05/08/19 at 09:00 Metoprolol Succinate (Toprol Xl) 25 mg DAILY PO Last administered on 05/10/19 08:29; Admin Dose 25 MG; Start 05/08/19 at 09:00 Pantoprazole (Protonix Tab) 40 mg DAILY@06 PO Last administered on 05/10/19 06:04; Admin Dose 40 MG; Start 05/08/19 at 06:00 Vitamin B Complex/ Vitamin C (Berocca) 1 cap DAILY PO Last administered on 05/10/19 08:30; Admin Dose 1 CAP; Start 05/08/19 at 09:00 Acetaminophen (Tylenol Tab) 650 mg Q6H PRN PO MILD PAIN(1-3)OR ELEVATED TEMP Last administered on 05/08/19 02:23; Admin Dose 650 MG; Start 05/08/19 at 00:30 Albuterol/ Ipratropium (Duoneb) 3 ml Q6H RESP THERAPY HHN Last administered on 05/10/19 01:59; Admin Dose 3 ML; Start 05/08/19 at 02:00 Ceftriaxone Sodium 50 ml @ 100 mls/hr Q24H IVPB Last administered on 05/09/19 18:30; Admin Dose 100 MLS/HR; Start 05/08/19 at 18:00 Azithromycin 500 mg/Sodium Chloride 250 ml @ 250 mls/hr DAILY IVPB Last administered on 05/10/19 09:24; Admin Dose 250 MLS/HR; Start 05/08/19 at 18:30 MARY LITTLEJOHN NP May 10, 2019 11:21
[2019-05-10] MEDS: DIGOXIN 0.125 MG TAB PO SCH (12:16)
[2019-05-10 14:00] VITALS: BP 149/69; PULSE 100; RESP 16
--- NOTE | 2019-05-10 14:21 | CONS ---
Assessment/Plan Assessment/Plan Hospital Course (Demo Recall) IMPRESSION: 1. Atrial fibrillation/atrial flutter, currently rate controlled. 2. Abnormal electrocardiogram, assess for acute coronary syndrome. 3. History of permanent pacemaker. No signs of dysfunction at this time. 4. Hypertension, well controlled. 5. Status post fall, sounds mechanical by description due to leg weakness. 6. Fevers. 7. Probable pneumonia. 8. Hypercoagulable state on Pradaxa, most likely dehydration. 9. Anemia. 10. Cardiomyopathy-EF 35-40 by echo this admit. Neg trop x 3 Recc: -Contineu ACEI with slight increase -Contineu toprol -Continue norvasc -Hold asa to decrease bleeding risk -continue pradaxa -Start lasix diuresis and aldactone -contineu abx's and bronchodilators Consultation Date/Type/Reason Admit Date/Time May 07, 2019 at 21:22 Initial Consult Date 05/10/19 Type of Consult Cardiology Reason for Consultation cardiomyopathy Date/Time of Note DATE: 05/10/19 TIME: 14:15 Exam/Review of Systems Vital Signs Vitals Vital Signs Date Temp Pulse Resp B/P (MAP) Pulse Ox O2 O2 Flow FiO2 Time Delivery Rate 05/10/19 97.9 115 16 153/76 95 08:32 (101) 05/10/19 Room Air 02:00 05/10/19 21 01:59 05/09/19 2.0 07:24 Intake and Output 05/09/19 05/09/19 05/10/19 1515:00 23:00 07:00 IntakeIntake Total 450 ml 930 ml BalanceBalance 450 ml 930 ml Exam Exam Review of Systems: CONSTITUTIONAL: No fevers, chills. PULMONARY: mild cough CARDIOVASCULAR: No chest pain/palpitations GASTROINTESTINAL: No nausea/vomiting. GENITOURINARY: No hematuria/dysuria. MUSCULOSKELETAL: No myagias/arthalgias. PSYCHIATRIC: The patient denies depression. NEUROLOGIC: No weakness Constitutional: alert, oriented Psych: no complaints Head: normocephalic ENMT: mucosa pink and moist Neck: supple, jvd (9 cm water) Respiratory: diminished breath sounds (at bases/B) Cardiovascular: regular rate and rhythm Gastrointestinal: soft, non-tender Musculoskeletal: muscle weakness (generalized) Extremities: edema (none) Neurological: lethargic (somewhat) Labs Result Diagram: 8/6/19 0702 05/09/19 0702 Medications Medications Current Medications Amlodipine Besylate (Norvasc) 10 mg DAILY PO Last administered on 05/10/19 08:30; Admin Dose 10 MG; Start 05/08/19 at 09:00 Ascorbic Acid (Vitamin C) 500 mg DAILY PO Last administered on 05/10/19 08:30; Admin Dose 500 MG; Start 05/08/19 at 09:00 Aspirin (Aspirin) 81 mg DAILY PO Last administered on 05/10/19 08:30; Admin Dose 81 MG; Start 05/08/19 at 09:00 Dabigatran (PRADaxa) 150 mg BID PO Last administered on 05/10/19 08:30; Admin Dose 150 MG; Start 05/08/19 at 09:00 Digoxin (Digoxin) 0.125 mg DAILY@13 PO Last administered on 05/10/19 12:16; Admin Dose 0.125 MG; Start 05/08/19 at 13:00 Ferrous Sulfate (Ferrous Sulfate (Ec)) 325 mg DAILY PO Last administered on 05/10/19 08:30; Admin Dose 325 MG; Start 05/08/19 at 09:00 Lisinopril (Zestril) 10 mg BID PO Last administered on 05/10/19 08:29; Admin Dose 10 MG; Start 05/08/19 at 09:00 Metoprolol Succinate (Toprol Xl) 25 mg DAILY PO Last administered on 05/10/19 08:29; Admin Dose 25 MG; Start 05/08/19 at 09:00 Pantoprazole (Protonix Tab) 40 mg DAILY@06 PO Last administered on 05/10/19 06:04; Admin Dose 40 MG; Start 05/08/19 at 06:00 Vitamin B Complex/ Vitamin C (Berocca) 1 cap DAILY PO Last administered on 05/10/19 08:30; Admin Dose 1 CAP; Start 05/08/19 at 09:00 Acetaminophen (Tylenol Tab) 650 mg Q6H PRN PO MILD PAIN(1-3)OR ELEVATED TEMP Last administered on 05/08/19 02:23; Admin Dose 650 MG; Start 05/08/19 at 00:30 Albuterol/ Ipratropium (Duoneb) 3 ml Q6H RESP THERAPY HHN Last administered on 05/10/19at 01:59; Admin Dose 3 ML; Start 05/08/19 at 02:00 Ceftriaxone Sodium 50 ml @ 100 mls/hr Q24H IVPB Last administered on 05/09/19at 18:30; Admin Dose 100 MLS/HR; Start 05/08/19 at 18:00 Azithromycin (Zithromax) 250 mg DAILY PO ; Start 05/10/19 at 18:30 ISRAEL TRAN May 10, 2019 14:21
--- NOTE | 2019-05-10 14:24 | PN ---
Date/Time of Note Date/Time of Note DATE: 05/10/19 TIME: 14:21 Assessment/Plan VTE Prophylaxis Risk score (from Ns)>0 risk: 3 SCD applied (from Ns): Yes Pharmacological prophylaxis: NA/contraindicated Pharm contraindication: low risk/ambulating Lines/Catheters IV Catheter Type (from [facility]): Saline Lock Assessment/Plan Assessment/Plan is is an 89-year-old male. 1. Complaint generalized weakness could be secondary to fever, rule out cardiac etiology. fevers 102 in ER 2. Sepsis with fevers, likely secondary to pneumonia; however, UA has not been checked. Blood cultures have been pending. Chest Xray left pneumonoia 3. History of hypertension, currently normotensive. 4. Hyperlipidemia. 5. History of cholecystectomy. The patient is status post obstructed CBD, status post arthrotomy with stone removal. 6. History of pacemaker placement. with no dysfunction 7 Atrial fibrillation/atrial flutter, currently rate controlled. 8 . Abnormal electrocardiogram, assess for acute coronary syndrome. Plan - bld cx neg so far - repeat chest xray+pneumonia - cw rocephim/azithro - fu ID recs -Spoke to cards> stopped ASA, will add lasix and aldactone 12.5 - gi/dvt PROPHLAXSIS SNIF planning Result Diagram: 05/09/19 0702 05/09/19 0702 Subjective 24 Hr Interval Summary Free Text/Dictation little bit coughing. Exam/Review of Systems Exam Vitals Vital Signs Date Temp Pulse Resp B/P (MAP) Pulse Ox O2 O2 Flow FiO2 Time Delivery Rate 05/10/19 97.9 115 16 153/76 95 08:32 (101) 05/10/19 Room Air 02:00 05/10/19 21 01:59 05/09/19 2.0 07:24 Intake and Output 05/09/19 05/09/19 05/10/19 1515:00 23:00 07:00 IntakeIntake Total 450 ml 930 ml BalanceBalance 450 ml 930 ml Exam GENERAL: The patient is alert, awake, in no acute distress. NECK: no jvd CHEST: Fair air movement throughout. HEART: Irregularly irregular, systolic murmur, nondisplaced PMI. ABDOMEN: Positive bowel sounds, soft. EXTREMITIES: No significant pitting edema, 1+ pulses bilateral posterior tibial. Medications Medication Current Medications Amlodipine Besylate (Norvasc) 10 mg DAILY PO Last administered on 05/10/19 08:30; Admin Dose 10 MG; Start 05/08/19 at 09:00 Ascorbic Acid (Vitamin C) 500 mg DAILY PO Last administered on 05/10/19 08:30; Admin Dose 500 MG; Start 05/08/19 at 09:00 Aspirin (Aspirin) 81 mg DAILY PO Last administered on 05/10/19 08:30; Admin Dose 81 MG; Start 05/08/19 at 09:00 Dabigatran (PRADaxa) 150 mg BID PO Last administered on 05/10/19 08:30; Admin Dose 150 MG; Start 05/08/19 at 09:00 Digoxin (Digoxin) 0.125 mg DAILY@13 PO Last administered on 05/10/19 12:16; Admin Dose 0.125 MG; Start 05/08/19 at 13:00 Ferrous Sulfate (Ferrous Sulfate (Ec)) 325 mg DAILY PO Last administered on 05/10/19 08:30; Admin Dose 325 MG; Start 05/08/19 at 09:00 Lisinopril (Zestril) 10 mg BID PO Last administered on 05/10/19 08:29; Admin Dose 10 MG; Start 05/08/19 at 09:00 Metoprolol Succinate (Toprol Xl) 25 mg DAILY PO Last administered on 05/10/19 0 8:29; Admin Dose 25 MG; Start 05/08/19 at 09:00 Pantoprazole (Protonix Tab) 40 mg DAILY@06 PO Last administered on 05/10/19 06:04; Admin Dose 40 MG; Start 05/08/19 at 06:00 Vitamin B Complex/ Vitamin C (Berocca) 1 cap DAILY PO Last administered on 05/10/19 08:30; Admin Dose 1 CAP; Start 05/08/19 at 09:00 Acetaminophen (Tylenol Tab) 650 mg Q6H PRN PO MILD PAIN(1-3)OR ELEVATED TEMP Last administered on 05/08/19 02:23; Admin Dose 650 MG; Start 05/08/19 at 00:30 Albuterol/ Ipratropium (Duoneb) 3 ml Q6H RESP THERAPY HHN Last administered on 05/10/19 01:59; Admin Dose 3 ML; Start 05/08/19 at 02:00 Ceftriaxone Sodium 50 ml @ 100 mls/hr Q24H IVPB Last administered on 05/09/19at 18:30; Admin Dose 100 MLS/HR; Start 05/08/19 at 18:00 Azithromycin (Zithromax) 250 mg DAILY PO ; Start 05/10/19 at 18:30 BERTO RAMOS MD May 10, 2019 14:24
--- NOTE | 2019-05-10 14:30 | PDOCDIS ---
Discharge Instructions DIAGNOSIS Discharge Diagnosis Pneumonia cardiomyopathy CONDITION [id number] Patient Condition: [id number] Fair HOME CARE INSTRUCTIONS: [id number] Diet Instructions: [id number] Modified Fat ACTIVITY: [id number] Activity Restrictions: [id number] Slowly Increase Activity Rest between Activity Avoid heavy lifting FOLLOW UP/APPOINTMENTS Follow-up Plan FU PCP in 1-2 weeks fu cards in 1-2 weeks BERTO RAMOS MD May 10, 2019 14:30
[2019-05-10] MEDS: CEFTRIAXONE 1 GM/50 ML (PMX) 50 ML IVPB SCH (18:06)
[2019-05-10] MEDS ORDERED: AZITHROMYCIN 250 MG TAB PO SCH (18:30)
[2019-05-10 20:00] VITALS: BP 128/66; PULSE 75; RESP 18
[2019-05-10] MEDS: LISINOPRIL 20 MG TAB PO SCH (21:27)
[2019-05-11] MEDS: ALBUTEROL/IPRATROPIUM (NEB) 3 ML AMP HHN SCH ×3 (01:15→13:50)
[2019-05-11 02:00] VITALS: BP 142/86; PULSE 111; RESP 18
[2019-05-11] MEDS: PANTOPRAZOLE (EC) 40 MG TAB PO SCH (06:50)
[2019-05-11 08:00] VITALS: BP_SYST 128; BP_SYST 134; BP_DIAS 76; BP_DIAS 81; PULSE 76; PULSE 84; RESP 18
[2019-05-11] MEDS: LISINOPRIL 20 MG TAB PO SCH (08:54)
[2019-05-11] MEDS: VITAMIN B COMPLEX/VIT C CAP PO SCH (08:54)
[2019-05-11] MEDS: DABIGATRAN 150 MG CAP PO SCH (08:55)
[2019-05-11] MEDS: AMLODIPINE 10 MG TAB PO SCH (08:55)
[2019-05-11] MEDS: ASCORBIC ACID 500 MG TAB PO SCH (08:55)
[2019-05-11] MEDS: FERROUS SULFATE (EC) 325 MG TAB PO SCH (08:55)
[2019-05-11] MEDS: METOPROLOL (XL) 25 MG TAB PO SCH (08:56)
[2019-05-11] MEDS ORDERED: SPIRONOLACTONE 25 MG TAB PO SCH (09:00)
[2019-05-11] MEDS ORDERED: FUROSEMIDE 20 MG TAB PO SCH (09:00)
[2019-05-11] MEDS ORDERED: AZITHROMYCIN 250 MG TAB PO SCH (09:00)
[2019-05-11] MEDS ORDERED: GUAIFENESIN/CODEINE 5ML CUP PO PRN (13:30)
[2019-05-11] MEDS: DIGOXIN 0.125 MG TAB PO SCH (13:31)
--- NOTE | 2019-05-11 13:53 | PN ---
Date/Time of Note Date/Time of Note DATE: 05/11/19 TIME: 13:51 Assessment/Plan VTE Prophylaxis Risk score (from Ns)>0 risk: 3 SCD applied (from Ns): Yes Pharmacological prophylaxis: NA/contraindicated Pharm contraindication: low risk/ambulating Lines/Catheters [facility] Saline Lock Urinary Cath still in place: No Assessment/Plan Assessment/Plan s is an 89-year-old male. 1. Complaint generalized weakness could be secondary to fever, rule out cardiac etiology. fevers 102 in ER 2. Sepsis with fevers, likely secondary to pneumonia; however, UA has not been checked. Blood cultures have been pending. Chest Xray left pneumonoia 3. History of hypertension, currently normotensive. 4. Hyperlipidemia. 5. History of cholecystectomy. The patient is status post obstructed CBD, status post arthrotomy with stone removal. 6. History of pacemaker placement. with no dysfunction 7 Atrial fibrillation/atrial flutter, currently rate controlled. 8 . Abnormal electrocardiogram, assess for acute coronary syndrome. Plan - bld cx neg so far - repeat chest xray+pneumonia - cw rocephim/azithro> Godfrey eot po levaquin - fu ID recs -Spoke to cards> cw lasix and aldactone 12.5 - gi/dvt PROPHLAXSIS dc home as not accepted bY snif Result Diagram: 05/09/19 0702 05/09/19 0702 Subjective 24 Hr Interval Summary Free Text/Dictation Doing well. Just some cough Exam/Review of Systems Exam Vitals Vital Signs Date Temp Pulse Resp B/P (MAP) Pulse Ox O2 O2 Flow FiO2 Time Delivery Rate 05/11/19 84 16 97 21 08:14 05/11/19 98.6 134/81 08:00 (98) 05/10/19 Nasal 18:11 Cannula 05/09/19 2.0 07:24 Intake and Output 05/10/19 05/10/19 05/11/19 1515:00 23:00 07:00 IntakeIntake Total 250 ml 410 ml BalanceBalance 250 ml 410 ml Exam GENERAL: The patient is alert, awake, in no acute distress. NECK: no jvd CHEST: Fair air movement throughout. HEART: Irregularly irregular, systolic murmur, nondisplaced PMI. ABDOMEN: Positive bowel sounds, soft. EXTREMITIES: No significant pitting edema, 1+ pulses bilateral posterior tibial. Medications Medication Current Medications Amlodipine Besylate (Norvasc) 10 mg DAILY PO Last administered on 05/11/19 08:55; Admin Dose 10 MG; Start 05/08/19 at 09:00 Ascorbic Acid (Vitamin C) 500 mg DAILY PO Last administered on 05/11/19 08:55; Admin Dose 500 MG; Start 05/08/19 at 09:00 Dabigatran (PRADaxa) 150 mg BID PO Last administered on 05/11/19 08:55; Admin Dose 150 MG; Start 05/08/19 at 09:00 Digoxin (Digoxin) 0.125 mg DAILY@13 PO Last administered on 05/11/19 13:31; Admin Dose 0.125 MG; Start 05/08/19 at 13:00 Ferrous Sulfate (Ferrous Sulfate (Ec)) 325 mg DAILY PO Last administered on 05/11/19 08:55; Admin Dose 325 MG; Start 05/08/19 at 09:00 Metoprolol Succinate (Toprol Xl) 25 mg DAILY PO Last administered on 05/11/19 08:56; Admin Dose 25 MG; Start 05/08/19 at 09:00 Pantoprazole (Protonix Tab) 40 mg DAILY@06 PO Last administered on 05/11/19 06:50; Admin Dose 40 MG; Start 05/08/19 at 06:00 Vitamin B Complex/ Vitamin C (Berocca) 1 cap DAILY PO Last administered on 05/11/19 08:54; Admin Dose 1 CAP; Start 05/08/19 at 09:00 Acetaminophen (Tylenol Tab) 650 mg Q6H PRN PO MILD PAIN(1-3)OR ELEVATED TEMP Last administered on 05/08/19 02:23; Admin Dose 650 MG; Start 05/08/19 at 00:30 Albuterol/ Ipratropium (Duoneb) 3 ml Q6H RESP THERAPY HHN Last administered on 05/11/19 13:50; Admin Dose 3 ML; Start 05/08/19 at 02:00 Ceftriaxone Sodium 50 ml @ 100 mls/hr Q24H IVPB Last administered on 05/10/19 18:06; Admin Dose 100 MLS/HR; Start 05/08/19 at 18:00 Lisinopril (Zestril) 20 mg BID PO Last administered on 05/11/19 08:54; Admin Dose 20 MG; Start 05/10/19 at 21:00 Spironolactone (Aldactone) 12.5 mg DAILY PO Last administered on 05/11/19 08:55; Admin Dose 12.5 MG; Start 05/11/19 at 09:00 Furosemide (Lasix) 20 mg DAILY PO Last administered on 05/11/19 08:56; Admin Dose 20 MG; Start 05/11/19 at 09:00 Azithromycin (Zithromax) 250 mg DAILY PO Last administered on 05/11/19 08:55; Admin Dose 250 MG; Start 05/11/19 at 09:00 Guaifenesin/ Codeine Phosphate (Robitussin Ac Liquid Cup) 10 ml QID PRN PO COUGH; Start 05/11/19 at 13:30; Status BERTO SANTIAGO MD May 11, 2019 13:53
[2019-05-11 14:00] VITALS: BP 128/76; PULSE 76; RESP 18
--- NOTE | 2019-05-11 14:27 | CONS ---
Assessment/Plan Assessment/Plan Hospital Course (Demo Recall) Alertm, feels ok, no fevers Blood cultures remain negative Chest x-ray 05/09/19 Stable persistent patchy infiltrate/pneumonia in the left lower lung CT of the brain showed no intracranial ab abnormalities acute Allergies: none Antimicrobials: Zithromax and Rocephin Physical examination well-developed fragile elderly man who is awake in no distress. Head atraumatic normocephalic neck is supple chest rise symmetrical breath sounds diminished bases heart S1-S2 abdomen soft bowel sounds present extremities without cyanosis Assessment: #1 s/p sepsis on admission with a high fevers #2 pneumonia #3 coronary artery disease status post permanent pacemaker #4 atrial fibrillation #5 anemia Plan: Doing better, continue abx for 5 more days Consultation Date/Type/Reason Admit Date/Time May 07, 2019 at 21:22 Initial Consult Date Type of Consult id Date/Time of Note DATE: 05/11/19 TIME: 14:26 Exam/Review of Systems Exam Vitals Vital Signs Date Temp Pulse Resp B/P (MAP) Pulse Ox O2 O2 Flow FiO2 Time Delivery Rate 05/11/19 78 16 97 21 13:53 05/11/19 98.6 134/81 08:00 (98) 05/10/19 Nasal 18:11 Cannula 05/09/19 2.0 07:24 Intake and Output 05/10/19 05/10/19 05/11/19 1515:00 23:00 07:00 IntakeIntake Total 250 ml 410 ml BalanceBalance 250 ml 410 ml Results Result Diagram: 05/09/19 0702 05/09/19 0702 Medications Medication Current Medications Amlodipine Besylate (Norvasc) 10 mg DAILY PO Last administered on 05/11/19 08:55; Admin Dose 10 MG; Start 05/08/19 at 09:00 Ascorbic Acid (Vitamin C) 500 mg DAILY PO Last administered on 05/11/19 08:55; Admin Dose 500 MG; Start 05/08/19 at 09:00 Dabigatran (PRADaxa) 150 mg BID PO Last administered on 05/11/19 08:55; Admin Dose 150 MG; Start 05/08/19 at 09:00 Digoxin (Digoxin) 0.125 mg DAILY@13 PO Last administered on 05/11/19at 13:31; Admin Dose 0.125 MG; Start 05/08/19 at 13:00 Ferrous Sulfate (Ferrous Sulfate (Ec)) 325 mg DAILY PO Last administered on 05/11/19 08:55; Admin Dose 325 MG; Start 05/08/19 at 09:00 Metoprolol Succinate (Toprol Xl) 25 mg DAILY PO Last administered on 05/11/19 08:56; Admin Dose 25 MG; Start 05/08/19 at 09:00 Pantoprazole (Protonix Tab) 40 mg DAILY@06 PO Last administered on 05/11/19 06:50; Admin Dose 40 MG; Start 05/08/19 at 06:00 Vitamin B Complex/ Vitamin C (Berocca) 1 cap DAILY PO Last administered on 05/11/19 08:54; Admin Dose 1 CAP; Start 05/08/19 at 09:00 Acetaminophen (Tylenol Tab) 650 mg Q6H PRN PO MILD PAIN(1-3)OR ELEVATED TEMP Last administered on 05/08/19 02:23; Admin Dose 650 MG; Start 05/08/19 at 00:30 Albuterol/ Ipratropium (Duoneb) 3 ml Q6H RESP THERAPY HHN Last administered on 05/11/19 13:50; Admin Dose 3 ML; Start 05/08/19 at 02:00 Ceftriaxone Sodium 50 ml @ 100 mls/hr Q24H IVPB Last administered on 05/10/19 18:06; Admin Dose 100 MLS/HR; Start 05/08/19 at 18:00 Lisinopril (Zestril) 20 mg BID PO Last administered on 05/11/19 08:54; Admin Dose 20 MG; Start 05/10/19 at 21:00 Spironolactone (Aldactone) 12.5 mg DAILY PO Last administered on 05/11/19 08:55; Admin Dose 12.5 MG; Start 05/11/19 at 09:00 Furosemide (Lasix) 20 mg DAILY PO Last administered on 05/11/19 08:56; Admin Dose 20 MG; Start 05/11/19 at 09:00 Azithromycin (Zithromax) 250 mg DAILY PO Last administered on 05/11/19 08:55; Admin Dose 250 MG; Start 05/11/19 at 09:00 Guaifenesin/ Codeine Phosphate (Robitussin Ac Liquid Cup) 10 ml QID PRN PO COUGH Last administered on 05/11/19at 14:23; Admin Dose 10 ML; Start 05/11/19 at 13:30 MARY LITTLEJOHN NP May 11, 2019 14:27
[2019-05-11 15:00] VITALS: BP 138/80; PULSE 86; RESP 16
--- NOTE | 2019-05-11 17:15 | CONS ---
Assessment/Plan Assessment/Plan Hospital Course (Demo Recall) IMPRESSION: 1. Atrial fibrillation/atrial flutter, currently rate controlled. 2. Abnormal electrocardiogram, assess for acute coronary syndrome. 3. History of permanent pacemaker. No signs of dysfunction at this time. 4. Hypertension, well controlled. 5. Status post fall, sounds mechanical by description due to leg weakness. 6. Fevers. 7. Probable pneumonia. 8. Hypercoagulable state on Pradaxa, most likely dehydration. 9. Anemia. 10. Cardiomyopathy-EF 35-40 by echo this admit. Neg trop x 3 Recc: -Contineu ACEI at current dose with reasonable BP control -Contineu toprol -Continue norvasc -s/p d/c of asa to decrease bleeding risk -continue pradaxa -continue digoxin -Continue daily lasix diuresis and aldactone -contineu abx's and bronchodilators Consultation Date/Type/Reason Admit Date/Time May 07, 2019 at 21:22 Initial Consult Date 05/10/19 Type of Consult Cardiology Reason for Consultation AF/cardiomyopathy Requesting Provider: BERTO RAMOS MD Date/Time of Note DATE: 05/11/19 TIME: 17:12 Exam/Review of Systems Vital Signs Vitals Vital Signs Date Temp Pulse Resp B/P (MAP) Pulse Ox O2 O2 Flow FiO2 Time Delivery Rate 05/11/19 78 16 97 21 13:53 05/11/19 98.8 128/76 08:00 (93) 05/10/19 Nasal 18:11 Cannula 05/09/19 2.0 07:24 Intake and Output 05/10/19 05/10/19 05/11/19 1515:00 23:00 07:00 IntakeIntake Total 250 ml 410 ml BalanceBalance 250 ml 410 ml Exam Exam Review of Systems: CONSTITUTIONAL: No fevers, chills. PULMONARY: No sob CARDIOVASCULAR: No chest pain/palpitations GASTROINTESTINAL: No nausea/vomiting. GENITOURINARY: No hematuria/dysuria. MUSCULOSKELETAL: No myagias/arthalgias. PSYCHIATRIC: The patient denies depression. NEUROLOGIC: resting tremor Constitutional: alert Psych: no complaints Head: normocephalic ENMT: mucosa pink and moist Neck: supple, jvd (9 cm water) Respiratory: clear to auscultation Cardiovascular: regular rate and rhythm Gastrointestinal: soft, non-tender Musculoskeletal: muscle tone (normal) Extremities: edema (none) Neurological: other (No focal deficits) Labs Result Diagram: 05/09/1970105/09/19701 Medications Medications Current Medications Amlodipine Besylate (Norvasc) 10 mg DAILY PO Last administered on 05/11/19 08:55; Admin Dose 10 MG; Start 05/08/19 at 09:00 Ascorbic Acid (Vitamin C) 500 mg DAILY PO Last administered on 05/11/19 08:55; Admin Dose 500 MG; Start 05/08/19 at 09:00 Dabigatran (PRADaxa) 150 mg BID PO Last administered on 05/11/19 08:55; Admin Dose 150 MG; Start 05/08/19 at 09:00 Digoxin (Digoxin) 0.125 mg DAILY@13 PO Last administered on 05/11/19 13:31; Admin Dose 0.125 MG; Start 05/08/19 at 13:00 Ferrous Sulfate (Ferrous Sulfate (Ec)) 325 mg DAILY PO Last administered on 05/11/19 08:55; Admin Dose 325 MG; Start 05/08/19 at 09:00 Metoprolol Succinate (Toprol Xl) 25 mg DAILY PO Last administered on 05/11/19 08:56; Admin Dose 25 MG; Start 05/08/19 at 09:00 Pantoprazole (Protonix Tab) 40 mg DAILY@06 PO Last administered on 05/11/19 06:50; Admin Dose 40 MG; Start 05/08/19 at 06:00 Vitamin B Complex/ Vitamin C (Berocca) 1 cap DAILY PO Last administered on 05/11/19 08:54; Admin Dose 1 CAP; Start 05/08/19 at 09:00 Acetaminophen (Tylenol Tab) 650 mg Q6H PRN PO MILD PAIN(1-3)OR ELEVATED TEMP Last administered on 05/08/19 02:23; Admin Dose 650 MG; Start 05/08/19 at 00:30 Albuterol/ Ipratropium (Duoneb) 3 ml Q6H RESP THERAPY HHN Last administered on 05/11/19 13:50; Admin Dose 3 ML; Start 05/08/19 at 02:00 Ceftriaxone Sodium 50 ml @ 100 mls/hr Q24H IVPB Last administered on 05/10/19 18:06; Admin Dose 100 MLS/HR; Start 05/08/19 at 18:00 Lisinopril (Zestril) 20 mg BID PO Last administered on 05/11/19 08:54; Admin Dose 20 MG; Start 05/10/19 at 21:00 Spironolactone (Aldactone) 12.5 mg DAILY PO Last administered on 05/11/19 08:55; Admin Dose 12.5 MG; Start 05/11/19 at 09:00 Furosemide (Lasix) 20 mg DAILY PO Last administered on 05/11/19 08:56; Admin Dose 20 MG; Start 05/11/19 at 09:00 Azithromycin (Zithromax) 250 mg DAILY PO Last administered on 05/11/19 08:55; Admin Dose 250 MG; Start 05/11/19 at 09:00 Guaifenesin/ Codeine Phosphate (Robitussin Ac Liquid Cup) 10 ml QID PRN PO COUGH Last administered on 05/11/19 14:23; Admin Dose 10 ML; Start 05/11/19 at 13:30 ISRAEL TRAN May 11, 2019 17:15
--- NOTE | 2019-05-11 20:10 | DS ---
DATE OF ADMISSION: 05/07/2019 DATE OF DISCHARGE: 05/11/2019 HISTORY OF PRESENTING ILLNESS AND HOSPITAL COURSE: This is an 89-year-old male with past medical his tory of hypertension, hyperlipidemia, atrial fibrillation, pacemaker placement, history of sphinctero ivone and stone removal in 2017, presented to the ER after being brought by the family due to increase d weakness at home. He was feeling weak for the last 2 days. He had a ground-level fall. Denied an y loss of consciousness. Denied any chest pain, any shortness of breath. On admission, the patient had fever of 102. Heart rate was 128. BUN of 26, creatinine 1.21. White count was 4.9. LFT within normal limit. The patient had a chest x-ray that showed left-sided pneumonia. 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 The patient was se en also by cardiology consultation with Dr. Stephens and recommendations were followed. He had an ech o that showed EF of 35% to 40%. The patient was started on Lasix. Lisinopril was adjusted and rasta nolactone was added. The patient's condition was feeling better every day. Blood cultures were nega tive. The patient had been walking with physical therapy. Attempts were made for the patient to be sent to half-way; however, the family refused and the patient is currently being sent to home wit h home physical therapy. FINAL DIAGNOSES: 1. Generalized weakness secondary to fever likely secondary to pneumonia. 2. Sepsis with fever secondary to pneumonia. 3. History of hypertension. 4. Hyperlipidemia. 5. History of cholecystectomy. 6. History of pacemaker placement. 7. Atrial fibrillation, atrial flutter, controlled. 8. Cardiomyopathy with EF of 35% to 40%. DISPOSITION CONDITION: Stable. DISCHARGE DIET: Two-gram sodium. DISCHARGE MEDICATIONS: 1. Levaquin 500 mg p.o. daily for 7 days. 2. Lasix 20. 3. Lisinopril 20 b.i.d. 4. Spironolactone 12.5. 5. Amlodipine 10. 6. Vitamin C. 7. Pradaxa 150 b.i.d. 8. Digoxin 0.125 daily. 9. Iron sulfate 325. 10. Metoprolol 25 daily. 11. Prilosec 40 b.i.d. 12. Vitamin B complex. Aspirin was stopped as Pradaxa was continued. Arrangement was done for home health, home physical th erapy. The patient will be followed by PCP in 1 to 2 weeks and also cardiology in 1 to 2 weeks. Sven e was discussed with the granddaughter present at the bedside. The patient was also given a prescrip tion for Robitussin. Dictated By: BERTO BROWNLEE/CASSIDY Conf#: [id number] DID#: [id number] CC: REGI GOVEA MD;*EndCC*
== END 2019-05-11 17:29 | disposition home health service (06) | DRG 871 ==
LOC: E/R 17:42 → PP2 21:22
PROVIDERS: ADMIT Internal Medicine Nephrology; ATTEND Internal Medicine Nephrology
DX: A41.9 Sepsis, unspecified organism (principal); J18.9 Pneumonia, unspecified organism; D68.59 Other primary thrombophilia; I48.92 Unspecified atrial flutter; I42.9 Cardiomyopathy, unspecified; E78.5 Hyperlipidemia, unspecified; I10 Essential (primary) hypertension; I25.10 Atherosclerotic heart disease of native coronary artery without angina pectoris; D64.9 Anemia, unspecified; I48.91 Unspecified atrial fibrillation; R94.31 Abnormal electrocardiogram [ECG] [EKG]; Z95.0 Presence of cardiac pacemaker; Z79.01 Long term (current) use of anticoagulants; Z91.81 History of falling; Z79.82 Long term (current) use of aspirin
CPT/HCPCS: 36415; 70450; 71045; 80048; 80053; 80061; 82962; 83605; 83735; 84100; 84443; 84484; 85025; 85610; 85730; 87081; 93005; 93306; 94640; 94664; 96374; 96375; 97110; 97116; 97162; 97165; 97530; 97535; J0456; J0696; J7030; J7050